=== PATIENT | female | born 1960 | race Caucasian/White ===

== ENCOUNTER → 2017-11-22 16:33 | Outpatient (CLI) | payer OTHER, SELFPAY ==
[2017-11-22 18:07] LABS: Carcinoembryonic Antigen 0.4 ng/mL (0.1-3.0)
[2017-11-24 15:55] LABS: CA 15-3 14 U/mL (< 32)
[2017-11-24 15:57] LABS: Cancer Antigen 27.29 21 U/mL (< 38)
== END ==
PROVIDERS: Family Provider Surgery; PCP Family Medicine; Visit Provider Surgery
DX: Z85.3 Personal history of malignant neoplasm of breast (principal)
CPT/HCPCS: 36415; 82378; 86300

== ENCOUNTER → 2018-01-08 10:00 | Outpatient (CLI) | payer OTHER, SELFPAY ==
--- NOTE | 2018-01-08 10:01 | DI.RAD.S_ITS ---
PROCEDURE: XR LUMBAR SPINE MIN 4V INDICATIONS: back pain TECHNIQUE: 5 views of the lumbar spine were acquired. COMPARISON: [facility], CT, ABDOMEN/PELVIS WITH CONTRAST, 10/14/2015, 7:43. FINDINGS: Bones: L4-L5 posterior spinal fixation. Hardware appears intact. No evidence of hardware loosening. There is also interbody fusion. Mild anterior wedging of L2 which is grossly unchanged. Mild levocurvature centered at the L2-L3 level. Lower lumbar thoracic disc spaces are mildly narrowed and there is endplate sclerosis and spurring. Moderate L5-S1 disc degeneration otherwise the remaining lumbar disc spaces demonstrate minimal if any height loss. Diffuse facet arthropathy. Soft tissues: Overlying bowel gas pattern is normal. No suspicious soft tissue calcifications. Oblique images: No pars defects. IMPRESSION: Postsurgical changes as above at L4-L5. Moderate L5-S1 disc degeneration. Diffuse facet arthropathy Lower thoracic discogenic changes Dictated by: Amauri Cortes M.D. on 01/08/2018 at 10:30 Approved by: Amauri Cortes M.D. on 01/08/2018 at 10:33
== END ==
PROVIDERS: PCP Family Medicine; Visit Provider Registered Nurse
DX: M54.9 Dorsalgia, unspecified (principal); M51.37 Other intervertebral disc degeneration, lumbosacral region; M47.817 Spondylosis without myelopathy or radiculopathy, lumbosacral region; Z98.1 Arthrodesis status
CPT/HCPCS: 72110

== ENCOUNTER → 2018-01-30 15:46 | Outpatient (CLI) | payer OTHER, SELFPAY | PROVIDERS: PCP Family Medicine | DX: Z23 Encounter for immunization (principal) | CPT/HCPCS: 90471; 90686 ==

== ENCOUNTER 2018-02-01 13:00 | Outpatient (RCR) | payer OTHER, SELFPAY ==
--- NOTE | 2018-01-24 17:30 | PT.OPPOC ---
Current Diagnoses Low back pain (01/24/18) Provider Visit Care Team Role Provider Type Maeve Beebe DO Primary Care Provider Physician Specialty: Family Practice Address: [address] [place] [address], [id number] Email: [email or web address] Cooper Attending Provider Advanced Yard Foreman Specialty: Medical Address: [address] [place] [address], [id number] Email: Plan Of Care PT-OP-T Assessment and Plan Start: 01/24/18 15:25 Freq: Status: Active Protocol: Document 01/24/18 16:51 EA (Rec: 01/24/18 17:29 EA [id number]) Physical Therapy Assessment Rehab Potential Rehabilitation Potential Good Evaluation Complexity Number of Personal Factors/Comorbidities 1-2 Number of Body Systems Impaired 3 Clinical Presentation at Evaluation Evolving Impairments Impairments Activity Tolerance Pain Posture ROM Soft Tissue Mobility Strength Other Concerns Barriers to Rehabilitation Current BW (Overweight/Obese) Goals Four Impairment Impaired muscle strength Senior Javascript Engineer Goal (LTG) Patient will improve core strength to enable patient hold near normal pelvic tilt and prevent low back pain. LTG Duration 4 wks Three Impairment No current home exercises program Half-Way Goal (LTG) Patient will learn and comply with HEP LTG Duration 4 wks Two Impairment Impaired sitting and sleeping tolerance Half-Way Goal (LTG) Patient will sleep more than 6 hours with no discomfort or low back pain Patient sit more than 45 mins with no increase in symptoms LTG Duration 4 wks One Impairment Oswestry impairment scale score of 19/45 Half-Way Goal (LTG) Patient will have Oswestry impairment scale of 10/45 LTG Duration 4 wks Assessment Summary Assessment Pleasant 57 y/o F patient referred d/t localized low back pain presented today with limitation to spinal motion and activity tolerance. Special tests reveals positive with SI joint dysfunction, soft tissue tightness to both paralumbars, and both ITB. Tests reveals negative with neurological involvement. Based on patient history, assessments and tests that patient complaints correlates with muscular strains, with L SI joint dysfunction, in addition of facets arthropathy . Due to above mentioned bodily dysfunction, patient is limited to functional tasks that is supposed to be pain free at her age. Patient is a good candidate to skilled PT to address the aforementioned issues. Physical Therapy Plan Frequency and Duration Frequency of Treatment 2x/Week Duration of Treatment 8 wks Plan of Care Start Date 01/24/18 Plan of Care End Date 03/21/18 Therapeutic Interventions Therapeutic Interventions Home Exercise Program Joint Mobilizations Manual Therapy Patient/Caregiver Education Self-Care/Home Management Soft Tissue Mobilization Taping Therapeutic Exercises Modalities Cold Pack/Ice Massage Electric Stimulation Hot Packs Ultrasound Next Visit Focus/Plan Next Note Type Treatment Note Plan of Care Dates Plan of Care Start Date 01/24/18 Plan of Care End Date 03/21/18 Please Sign and Return: I have reviewed this Plan of Care and certify that the skilled therapy services above are required to meet the patient?s needs. Physician Signature Date Printed Name and Credentials Clinical Instructor Signature Printed Name and Credentials
--- NOTE | 2018-01-24 17:30 | PT.OIE ---
Current Diagnoses Low back pain (01/24/18) Past Medical History (Last Updated 01/07/18 @ 11:31 by Laxmi Hale) BRCA gene mutation positive in female (Chronic 2009) Chronic headaches (Chronic) Colitis (Chronic 2009) Depression (Chronic) GERD (gastroesophageal reflux disease) (Chronic) Gastric ulcer (Chronic 2008) Hayfever (Chronic) Migraines (Chronic) Recurrent sinusitis (Chronic) Breast cancer (Resolved 2009) Chicken pox (Resolved ~1965) Past Surgical History (Last Updated 01/07/18 @ 11:34 by Laxmi Hale) Anesthesia (Resolved) History of back surgery (Resolved 07/2009) History of total mastectomy (Resolved 12/2010) History of total mastectomy (Resolved 07/2011) Status post cholecystectomy (Resolved 2015) Status post hysterectomy (Resolved 12/2002) Status post tubal ligation (Resolved 1980) Provider Visit Care Team Role Provider Type Maeve Beebe DO Primary Care Provider Physician Specialty: Family Practice Address: [address] [place] [address] Email: [email or web address] Cooper Attending Provider Advanced Geosciences Faculty Member Specialty: Medical Address: [address] [place] [address], [id number] Email: Physical Therapy Initial Evaluation PT-OP-A Visit Information Start: 01/24/18 15:25 Freq: Status: Active Protocol: Document 01/24/18 16:51 EA (Rec: 01/24/18 17:29 EA [id number]) Out-Patient Physical Therapy Visit Information Visit Information Visit Type Initial Evaluation Visit Start Time 13:00 Visit Stop Time 13:40 Total Visit Minutes 40 Visit Number 1 Evaluation Information Evaluation Date 01/24/18 PT-OP-B Current Condition Start: 01/24/18 15:25 Freq: Status: Active Protocol: Document 01/24/18 16:51 EA (Rec: 01/24/18 17:29 EA [id number]) Current Condition History of Current Condition Onset Date 1 month ago Current Complaints Localized low back aching pain History of Current Condition Pt reports current low back pain complaint started a month ago after injuring her back while lifting her mom from the floor to the wheelchair; states felt pain with soreness to low back area afterwards. Pt reports low back pain increased in morning and slowly decreased once mobile for few hours. Recent X-rays reveals L5-S1 DDD with diffused lumbar arthropathy. Pt had history of lumbar fusion years ago with no issues until recent incident at home. Prior Treatments and Tests none identified Future Testing and Treatments Planned None identified Treatment Goals Patient/Caregiver Goals Pt wants to reduce pain to at least 1/10 at rest and with mobility. 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 [employer] Current Functional Impairments (Reported) Functional Limitations- ADL's Patient is mildly limited with bending and lifting Functional Limitations- Mobility/Gait Limited with distance mobility due to increased in low back pain Functional Limitations- Work/School Sitting at work is mildly limited Functional Limitations- Other Limited sleep due to pain PT-OP-C Subjective Start: 01/24/18 15:25 Freq: Status: Active Protocol: Document 01/24/18 16:50 EA (Rec: 01/29/18 09:31 EA [id number]) OP-PT Subjective Patient Comments Patient Comments Patient is aiming to decrease pain while sleeping after few sessions with physical therapy . Patient Reported Progress Same Patient Questionnaires Oswestry Low Back Index Oswestry Score 19/45 Oswestry Impairment 40 to 59% Impaired (Score 40- 59) PT-OP-F Manual Assessment Start: 01/24/18 15:25 Freq: Status: Active Protocol: Document 01/24/18 16:50 EA (Rec: 01/29/18 09:31 EA [id number]) Manual Assessments Soft Tissue Assessment Soft Tissue Mobility Assessment Tight paralumbars, both ITB, QL. Joint Mobility Assessment Joint Mobility Assessment Not assess due to lumbar fixation PT-OP-G Mobility & Gait Start: 01/24/18 15:25 Freq: Status: Active Protocol: Document 01/24/18 16:50 EA (Rec: 01/29/18 09:31 EA [id number]) OP Gait Assessment Comments Gait Comments Normal gait pattern. Patient able to walk on toes and heels with pain increased to low back area with heel walking Stair Climbing Evaluation Evaluation Level of Assist On Stairs Independent Devices Stair Climbing Assistive Devices None Technique/Endurance Stair Climbing Direction Ascend and Descend Comments Stair Climbing Comments No limitation noted PT-OP-J Posture/Palpation/Skin Start: 01/24/18 15:25 Freq: Status: Active Protocol: Document 01/24/18 16:51 EA (Rec: 01/24/18 17:29 EA [id number]) Posture Evaluation Position Standing Evaluation View ant/post L-Spine Posture Increased Lordosis Pelvis Posture Anteriorly Tilted Comments Posture Comments Increased lumbar lordosis with slight ant pelvic tilt Palpation Assessment Location One Palpation Location SI joint, paralumbars, Ql, both ITB Palpation Findings Soft Tissue Tightness Tenderness PT-OP-K Range of Motion Start: 01/24/18 15:25 Freq: Status: Active Protocol: Document 01/24/18 16:51 EA (Rec: 01/24/18 17:29 EA [id number]) Lumbar Spine Range of Motion Lumbar Spine Active Percentage Testing Position standing Flexion 50 Extension 70 Rotation Left 60 Rotation Right 60 Lateral Flexion Left 65 Lateral Flexion Right 50 ROM Limitations Soft Tissue Tightness Pain Comments ROM is limited with soft tissue tightness and pain to SI joint PT-OP-L Special Tests Start: 01/24/18 15:25 Freq: Status: Active Protocol: Document 01/24/18 16:51 EA (Rec: 01/24/18 17:29 EA [id number]) Special Tests Lumbar Spine Special Tests Other- 2 Test Results Negative post quadrant test ( Neural foramina) Stork Test Test Results negative Other- 1 Test Results Left SLS Comments Pain left SI jnt Straight Leg Raise Test Results + Comments R SLR = pain to left SI Compression Test Results Positive Comments Left > right: SL Knee Special Tests Katy's Test Test Results Tight both ITB PT-OP-M Strength Start: 01/24/18 15:25 Freq: Status: Active Protocol: Document 01/24/18 16:51 EA (Rec: 01/24/18 17:29 EA [id number]) Trunk Strength Trunk Manual Muscle Testing Testing Position sup/prone Flexion 3- Fair- Extension 3- Fair- Rotation Left 3 Fair Rotation Right 3 Fair Lateral Flexion Left 3- Fair- Lateral Flexion Right 3- Fair- Hip Strength Hip Manual Muscle Testing Right Reason Not Measured WFL Left Reason Not Measured WFL Ankle/Foot Strength Ankle and Foot Manual Muscle Testing Right Reason Not Measured WFL Left Reason Not Measured WFL PT-OP-Q Treatments Start: 01/24/18 15:25 Freq: Status: Active Protocol: Document 01/24/18 16:51 EA (Rec: 01/24/18 17:29 EA [id number]) Self-Care/Home Management Treatment Education Patient Education Home Exercise Program Pain Management Posture PT-OP-T Assessment and Plan Start: 01/24/18 15:25 Freq: Status: Active Protocol: Document 01/24/18 16:51 EA (Rec: 01/24/18 17:29 EA [id number]) Physical Therapy Assessment Rehab Potential Rehabilitation Potential Good Evaluation Complexity Number of Personal Factors/Comorbidities 1-2 Number of Body Systems Impaired 3 Clinical Presentation at Evaluation Evolving Impairments Impairments Activity Tolerance Pain Posture ROM Soft Tissue Mobility Strength Other Concerns Barriers to Rehabilitation Current BW (Overweight/Obese) Goals Four Impairment Impaired muscle strength Intermediate Goal (LTG) Patient will improve core strength to enable patient hold near normal pelvic tilt and prevent low back pain. LTG Duration 4 wks Three Impairment No current home exercises program Intermediate Goal (LTG) Patient will learn and comply with HEP LTG Duration 4 wks Two Impairment Impaired sitting and sleeping tolerance Intermediate Goal (LTG) Patient will sleep more than 6 hours with no discomfort or low back pain Patient sit more than 45 mins with no increase in symptoms LTG Duration 4 wks One Impairment Oswestry impairment scale score of 19/45 Coffin Maker Goal (LTG) Patient will have Oswety impairment scale of 10/45 LTG Duration 4 wks Assessment Summary Assessment Pleasant 57 y/o F patient referred d/t localized low back pain presented today with limitation to spinal motion and activity tolerance. Special tests reveals positive with SI joint dysfunction, soft tissue tightness to both paralumbars, and both ITB. Tests reveals negative with neurological involvement. Based on patient history, assessments and tests that patient complaints correlates with muscular strains, with L SI joint dysfunction, in addition of facets arthropathy . Due to above mentioned bodily dysfunction, patient is limited to functional tasks that is supposed to be pain free at her age. Patient is a good candidate to skilled PT to address the aforementioned issues. Physical Therapy Plan Frequency and Duration Frequency of Treatment 2x/Week Duration of Treatment 8 wks Plan of Care Start Date 01/24/18 Plan of Care End Date 03/21/18 Therapeutic Interventions Therapeutic Interventions Home Exercise Program Joint Mobilizations Manual Therapy Patient/Caregiver Education Self-Care/Home Management Soft Tissue Mobilization Taping Therapeutic Exercises Modalities Cold Pack/Ice Massage Electric Stimulation Hot Packs Ultrasound Next Visit Focus/Plan Next Note Type Treatment Note
--- NOTE | 2018-01-29 15:36 | PT.OTN ---
Current Diagnoses Low back pain (01/29/18) Physical Therapy Treatment Note PT-OP-A Visit Information Start: 01/24/18 15:25 Freq: Status: Active Protocol: Document 01/24/18 16:51 EA (Rec: 01/24/18 17:29 EA [id number]) Out-Patient Physical Therapy Visit Information Visit Information Visit Type Initial Evaluation Visit Start Time 13:00 Visit Stop Time 13:40 Total Visit Minutes 40 Visit Number 1 Evaluation Information Evaluation Date 01/24/18 PT-OP-B Current Condition Start: 01/24/18 15:25 Freq: Status: Active Protocol: Document 01/24/18 16:51 EA (Rec: 01/24/18 17:29 EA [id number]) Current Condition History of Current Condition Onset Date 1 month ago Current Complaints Localized low back aching pain History of Current Condition Pt reports current low back pain complaint started a month ago after injuring her back while lifting her mom from the floor to the wheelchair; states felt pain with soreness to low back area afterwards. Pt reports low back pain increased in morning and slowly decreased once mobile for few hours. Recent X-rays reveals L5-S1 DDD with diffused lumbar arthropathy. Pt had history of lubar fusion years ago with no issues until recent incedent at home. Prior Treatments and Tests none identified Future Testing and Treatments Planned None identified Treatment Goals Patient/Caregiver Goals Pt wants to reduce pain to at least 1/10 at rest and with mobility. 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 [employer] Current Functional Impairments (Reported) Functional Limitations- ADL's Patient is mildy limited with bending and lifting Functional Limitations- Mobility/Gait Limited with distance mobility due to increased in low back pain Functional Limitations- Work/School Sitting at work is mildly limited Functional Limitations- Other Limited sleep due to pain PT-OP-C Subjective Start: 01/24/18 15:25 Freq: Status: Active Protocol: Document 01/29/18 15:20 SA (Rec: 01/29/18 15:35 SA [id number]) OP-PT Subjective Patient Comments Patient Comments Pt was quite sore after initial evaluation, has steroid perscribed and was helpful in releaving pain. Patient Reported Progress Same PT-OP-F Manual Assessment Start: 01/24/18 15:25 Freq: Status: Active Protocol: Document 01/24/18 16:50 EA (Rec: 01/29/18 09:31 EA [id number]) Manual Assessments Soft Tissue Assessment Soft Tissue Mobility Assessment Tight paralumbars, both ITB, QL. Joint Mobility Assessment Joint Mobility Assessment Not assess due to lumbar fixation PT-OP-G Mobility & Gait Start: 01/24/18 15:25 Freq: Status: Active Protocol: Document 01/24/18 16:50 EA (Rec: 01/29/18 09:31 EA [id number]) OP Gait Assessment Comments Gait Comments Normal gait pattern. Patient able to walk on toes and heels with pain increased to low back area with heel walking Stair Climbing Evaluation Evaluation Level of Assist On Stairs Independent Devices Stair Climbing Assistive Devices None Technique/Endurance Stair Climbing Direction Ascend and Descend Comments Stair Climbing Comments No limitation noted PT-OP-J Posture/Palpation/Skin Start: 01/24/18 15:25 Freq: Status: Active Protocol: Document 01/24/18 16:51 EA (Rec: 01/24/18 17:29 EA [id number]) Posture Evaluation Position Standing Evaluation View ant/post L-Spine Posture Increased Lordosis Pelvis Posture Anteriorly Tilted Comments Posture Comments Increased lumbar lordosis with slight ant pelvic tilt Palpation Assessment Location One Palpation Location SI joint, paralumbars, Ql, both ITB Palpation Findings Soft Tissue Tightness Tenderness PT-OP-K Range of Motion Start: 01/24/18 15:25 Freq: Status: Active Protocol: Document 01/24/18 16:51 EA (Rec: 01/24/18 17:29 EA [id number]) Lumbar Spine Range of Motion Lumbar Spine Active Percentage Testing Position standing Flexion 50 Extension 70 Rotation Left 60 Rotation Right 60 Lateral Flexion Left 65 Lateral Flexion Right 50 ROM Limitations Soft Tissue Tightness Pain Comments ROM is limited with soft tissue tightness and pain to SI joint PT-OP-L Special Tests Start: 01/24/18 15:25 Freq: Status: Active Protocol: Document 01/24/18 16:51 EA (Rec: 01/24/18 17:29 EA [id number]) Special Tests Lumbar Spine Special Tests Other- 2 Test Results Negative post quadrant test ( Neural foramina) Stork Test Test Results negative Other- 1 Test Results Left SLS Comments Pain left SI jnt Straight Leg Raise Test Results + Comments R SLR = pain to left SI Compression Test Results Positive Comments Left > right: SL Knee Special Tests Katy's Test Test Results Tight both ITB PT-OP-M Strength Start: 01/24/18 15:25 Freq: Status: Active Protocol: Document 01/24/18 16:51 EA (Rec: 01/24/18 17:29 EA [id number]) Trunk Strength Trunk Manual Muscle Testing Testing Position sup/prone Flexion 3- Fair- Extension 3- Fair- Rotation Left 3 Fair Rotation Right 3 Fair Lateral Flexion Left 3- Fair- Lateral Flexion Right 3- Fair- Hip Strength Hip Manual Muscle Testing Right Reason Not Measured WFL Left Reason Not Measured WFL Ankle/Foot Strength Ankle and Foot Manual Muscle Testing Right Reason Not Measured WFL Left Reason Not Measured WFL PT-OP-Q Treatments Start: 01/24/18 15:25 Freq: Status: Active Protocol: Document 01/29/18 15:20 SA (Rec: 01/29/18 15:35 SA [id number]) Therapeutic Exercises Supine Exercises Supine pelvic tilits Reps/Minutes 10x DKTC Reps/Minutes 30 x 3 SKTC Side bilateral Reps/Minutes 30 x 3 Prone Exercises Quadriped Cat/Camel Reps/Minutes 2' Comments focus on posterior pelvic tilt Sitting Exercises Piriformis stretching Side bilateral Reps/Minutes 30 x 2 Standing Exercises HS/Psoas stretching Reps/Minutes 30x 2 Comments at stair Manual Therapy Treatment Soft Tissue Mobilization STM Body Location piriformis Mobilization Type Myofascial Release Trigger Point Release Intensity/Depth Moderate Body Position side lying STM/MFR Body Location lumbar paraspinals Mobilization Type Myofascial Release Rolling Trigger Point Release Intensity/Depth Moderate Body Position Sidelying PT-OP-R Modalities Start: 01/24/18 15:25 Freq: Status: Active Protocol: Document 01/29/18 15:20 SA (Rec: 01/29/18 15:35 SA [id number]) Electric Stimulation Electric Stimulation IFC Body Location central LB/sacral Duration (Minutes) 15 Combined With Heat/Cold Cold Pack Comments Pt in side lying PT-OP-T Assessment and Plan Start: 01/24/18 15:25 Freq: Status: Active Protocol: Document 01/29/18 15:20 SA (Rec: 01/29/18 15:35 SA [email or web address]) Physical Therapy Assessment Assessment Summary Assessment SKTC, DKTC and piriformis stretching to for HEP. Pt to continued with B ITB rolling. Education for work station set up, hand out provided. Physical Therapy Plan Frequency and Duration Frequency of Treatment 2x/Week Next Visit Focus/Plan Next Note Type Treatment Note Next Visit Plan Review HEP next visit, assess tolerance of E-stim and STM. Continue to work on posterior pelvic tilt.
--- NOTE | 2018-01-29 15:52 | PT.OTN ---
Current Diagnoses Low back pain (01/29/18) Physical Therapy Treatment Note PT-OP-A Visit Information Start: 01/24/18 15:25 Freq: Status: Active Protocol: Document 01/29/18 15:51 SA (Rec: 01/29/18 15:52 SA [email or web address]) Out-Patient Physical Therapy Visit Information Visit Information Visit Type Treatment Note Visit Start Time 13:00 Visit Stop Time 13:45 Visit Number 2 PT-OP-B Current Condition Start: 01/24/18 15:25 Freq: Status: Active Protocol: Document 01/24/18 16:51 EA (Rec: 01/24/18 17:29 EA [id number]) Current Condition History of Current Condition Onset Date 1 month ago Current Complaints Localized low back aching pain History of Current Condition Pt reports current low back pain complaint started a month ago after injuring her back while lifting her mom from the floor to the wheelchair; states felt pain with soreness to low back area afterwards. Pt reports low back pain increased in morning and slowly decreased once mobile for few hours. Recent X-rays reveals L5-S1 DDD with diffused lumbar arthropathy. Pt had history of lubar fusion years ago with no issues until recent incedent at home. Prior Treatments and Tests none identified Future Testing and Treatments Planned None identified Treatment Goals Patient/Caregiver Goals Pt wants to reduce pain to at least 1/10 at rest and with mobility. 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 [employer] Current Functional Impairments (Reported) Functional Limitations- ADL's Patient is mildy limited with bending and lifting Functional Limitations- Mobility/Gait Limited with distance mobility due to increased in low back pain Functional Limitations- Work/School Sitting at work is mildly limited Functional Limitations- Other Limited sleep due to pain PT-OP-C Subjective Start: 01/24/18 15:25 Freq: Status: Active Protocol: Document 01/29/18 15:20 SA (Rec: 01/29/18 15:35 SA [email or web address]) OP-PT Subjective Patient Comments Patient Comments Pt was quite sore after initial evaluation, has steroid perscribed and was helpful in releaving pain. Patient Reported Progress Same PT-OP-F Manual Assessment Start: 01/24/18 15:25 Freq: Status: Active Protocol: Document 01/24/18 16:50 EA (Rec: 01/29/18 09:31 EA [id number]) Manual Assessments Soft Tissue Assessment Soft Tissue Mobility Assessment Tight paralumbars, both ITB, QL. Joint Mobility Assessment Joint Mobility Assessment Not assess due to lumbar fixation PT-OP-G Mobility & Gait Start: 01/24/18 15:25 Freq: Status: Active Protocol: Document 01/24/18 16:50 EA (Rec: 01/29/18 09:31 EA [id number]) OP Gait Assessment Comments Gait Comments Normal gait pattern. Patient able to walk on toes and heels with pain increased to low back area with heel walking Stair Climbing Evaluation Evaluation Level of Assist On Stairs Independent Devices Stair Climbing Assistive Devices None Technique/Endurance Stair Climbing Direction Ascend and Descend Comments Stair Climbing Comments No limitation noted PT-OP-J Posture/Palpation/Skin Start: 01/24/18 15:25 Freq: Status: Active Protocol: Document 01/24/18 16:51 EA (Rec: 01/24/18 17:29 EA [id number]) Posture Evaluation Position Standing Evaluation View ant/post L-Spine Posture Increased Lordosis Pelvis Posture Anteriorly Tilted Comments Posture Comments Increased lumbar lordosis with slight ant pelvic tilt Palpation Assessment Location One Palpation Location SI joint, paralumbars, Ql, both ITB Palpation Findings Soft Tissue Tightness Tenderness PT-OP-K Range of Motion Start: 01/24/18 15:25 Freq: Status: Active Protocol: Document 01/24/18 16:51 EA (Rec: 01/24/18 17:29 EA [id number]) Lumbar Spine Range of Motion Lumbar Spine Active Percentage Testing Position standing Flexion 50 Extension 70 Rotation Left 60 Rotation Right 60 Lateral Flexion Left 65 Lateral Flexion Right 50 ROM Limitations Soft Tissue Tightness Pain Comments ROM is limited with soft tissue tightness and pain to SI joint PT-OP-L Special Tests Start: 01/24/18 15:25 Freq: Status: Active Protocol: Document 01/24/18 16:51 EA (Rec: 01/24/18 17:29 EA [id number]) Special Tests Lumbar Spine Special Tests Other- 2 Test Results Negative post quadrant test ( Neural foramina) Stork Test Test Results negative Other- 1 Test Results Left SLS Comments Pain left SI jnt Straight Leg Raise Test Results + Comments R SLR = pain to left SI Compression Test Results Positive Comments Left > right: SL Knee Special Tests Katy's Test Test Results Tight both ITB PT-OP-M Strength Start: 01/24/18 15:25 Freq: Status: Active Protocol: Document 01/24/18 16:51 EA (Rec: 01/24/18 17:29 EA [id number]) Trunk Strength Trunk Manual Muscle Testing Testing Position sup/prone Flexion 3- Fair- Extension 3- Fair- Rotation Left 3 Fair Rotation Right 3 Fair Lateral Flexion Left 3- Fair- Lateral Flexion Right 3- Fair- Hip Strength Hip Manual Muscle Testing Right Reason Not Measured WFL Left Reason Not Measured WFL Ankle/Foot Strength Ankle and Foot Manual Muscle Testing Right Reason Not Measured WFL Left Reason Not Measured WFL PT-OP-Q Treatments Start: 01/24/18 15:25 Freq: Status: Active Protocol: Document 01/29/18 15:20 SA (Rec: 01/29/18 15:35 SA [email or web address]) Therapeutic Exercises Supine Exercises Supine pelvic tilits Reps/Minutes 10x DKTC Reps/Minutes 30 x 3 SKTC Side bilateral Reps/Minutes 30 x 3 Prone Exercises Quadriped Cat/Camel Reps/Minutes 2' Comments focus on posterior pelvic tilt Sitting Exercises Piriformis stretching Side bilateral Reps/Minutes 30 x 2 Standing Exercises HS/Psoas stretching Reps/Minutes 30x 2 Comments at stair Manual Therapy Treatment Soft Tissue Mobilization STM Body Location piriformis Mobilization Type Myofascial Release Trigger Point Release Intensity/Depth Moderate Body Position side lying STM/MFR Body Location lumbar paraspinals Mobilization Type Myofascial Release Rolling Trigger Point Release Intensity/Depth Moderate Body Position Sidelying PT-OP-R Modalities Start: 01/24/18 15:25 Freq: Status: Active Protocol: Document 01/29/18 15:20 SA (Rec: 01/29/18 15:35 SA [email or web address]) Electric Stimulation Electric Stimulation IFC Body Location central LB/sacral Duration (Minutes) 15 Combined With Heat/Cold Cold Pack Comments Pt in sidelying PT-OP-T Assessment and Plan Start: 01/24/18 15:25 Freq: Status: Active Protocol: Document 01/29/18 15:20 SA (Rec: 01/29/18 15:35 SA [email or web address]) Physical Therapy Assessment Assessment Summary Assessment SKTC, DKTC and piriformis stretching to for HEP. Pt to continued with B ITB rolling. Education for work station set up, hand out provided. Physical Therapy Plan Frequency and Duration Frequency of Treatment 2x/Week Next Visit Focus/Plan Next Note Type Treatment Note Next Visit Plan Review HEP next visit, assess tolerance of E-stim and STM. Continue to work on posterior pelvic tilt.
--- NOTE | 2018-02-01 15:35 | PT.OTN ---
Current Diagnoses Low back pain (02/01/18) Physical Therapy Treatment Note PT-OP-A Visit Information Start: 01/24/18 15:25 Freq: Status: Active Protocol: Document 02/01/18 15:25 SA (Rec: 02/01/18 15:35 SA [email or web address]) Out-Patient Physical Therapy Visit Information Visit Information Visit Type Treatment Note Visit Start Time 13:00 Visit Stop Time 13:45 Visit Number 3 Number of MEASUREMENT ANALYST Visits 2 PT-OP-B Current Condition Start: 01/24/18 15:25 Freq: Status: Active Protocol: Document 01/24/18 16:51 EA (Rec: 01/24/18 17:29 EA [id number]) Current Condition History of Current Condition Onset Date 1 month ago Current Complaints Localized low back aching pain History of Current Condition Pt reports current low back pain complaint started a month ago after injuring her back while lifting her mom from the floor to the wheelchair; states felt pain with soreness to low back area afterwards. Pt reports low back pain increased in morning and slowly decreased once mobile for few hours. Recent X-rays reveals L5-S1 DDD with diffused lumbar arthropathy. Pt had history of lubar fusion years ago with no issues until recent incedent at home. Prior Treatments and Tests none identified Future Testing and Treatments Planned None identified Treatment Goals Patient/Caregiver Goals Pt wants to reduce pain to at least 1/10 at rest and with mobility. 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 [employer] Current Functional Impairments (Reported) Functional Limitations- ADL's Patient is mildy limited with bending and lifting Functional Limitations- Mobility/Gait Limited with distance mobility due to increased in low back pain Functional Limitations- Work/School Sitting at work is mildly limited Functional Limitations- Other Limited sleep due to pain PT-OP-C Subjective Start: 01/24/18 15:25 Freq: Status: Active Protocol: Document 02/01/18 15:25 SA (Rec: 02/01/18 15:35 SA [email or web address]) OP-PT Subjective Patient Comments Patient Comments Pt feeling pretty good, continues to use CP and ibuprophen at home for pain management. HEP/stretching going well. PT-OP-F Manual Assessment Start: 01/24/18 15:25 Freq: Status: Active Protocol: Document 01/24/18 16:50 EA (Rec: 01/29/18 09:31 EA [id number]) Manual Assessments Soft Tissue Assessment Soft Tissue Mobility Assessment Tight paralumbars, both ITB, QL. Joint Mobility Assessment Joint Mobility Assessment Not assess due to lumbar fixation PT-OP-G Mobility & Gait Start: 01/24/18 15:25 Freq: Status: Active Protocol: Document 01/24/18 16:50 EA (Rec: 01/29/18 09:31 EA [id number]) OP Gait Assessment Comments Gait Comments Normal gait pattern. Patient able to walk on toes and heels with pain increased to low back area with heel walking Stair Climbing Evaluation Evaluation Level of Assist On Stairs Independent Devices Stair Climbing Assistive Devices None Technique/Endurance Stair Climbing Direction Ascend and Descend Comments Stair Climbing Comments No limitation noted PT-OP-J Posture/Palpation/Skin Start: 01/24/18 15:25 Freq: Status: Active Protocol: Document 01/24/18 16:51 EA (Rec: 01/24/18 17:29 EA [id number]) Posture Evaluation Position Standing Evaluation View ant/post L-Spine Posture Increased Lordosis Pelvis Posture Anteriorly Tilted Comments Posture Comments Increased lumbar lordosis with slight ant pelvic tilt Palpation Assessment Location One Palpation Location SI joint, paralumbars, Ql, both ITB Palpation Findings Soft Tissue Tightness Tenderness PT-OP-K Range of Motion Start: 01/24/18 15:25 Freq: Status: Active Protocol: Document 01/24/18 16:51 EA (Rec: 01/24/18 17:29 EA [id number]) Lumbar Spine Range of Motion Lumbar Spine Active Percentage Testing Position standing Flexion 50 Extension 70 Rotation Left 60 Rotation Right 60 Lateral Flexion Left 65 Lateral Flexion Right 50 ROM Limitations Soft Tissue Tightness Pain Comments ROM is limited with soft tissue tightness and pain to SI joint PT-OP-L Special Tests Start: 01/24/18 15:25 Freq: Status: Active Protocol: Document 01/24/18 16:51 EA (Rec: 01/24/18 17:29 EA [id number]) Special Tests Lumbar Spine Special Tests Other- 2 Test Results Negative post quadrant test ( Neural foramina) Stork Test Test Results negative Other- 1 Test Results Left SLS Comments Pain left SI jnt Straight Leg Raise Test Results + Comments R SLR = pain to left SI Compression Test Results Positive Comments Left > right: SL Knee Special Tests Katy's Test Test Results Tight both ITB PT-OP-M Strength Start: 01/24/18 15:25 Freq: Status: Active Protocol: Document 01/24/18 16:51 EA (Rec: 01/24/18 17:29 EA [id number]) Trunk Strength Trunk Manual Muscle Testing Testing Position sup/prone Flexion 3- Fair- Extension 3- Fair- Rotation Left 3 Fair Rotation Right 3 Fair Lateral Flexion Left 3- Fair- Lateral Flexion Right 3- Fair- Hip Strength Hip Manual Muscle Testing Right Reason Not Measured WFL Left Reason Not Measured WFL Ankle/Foot Strength Ankle and Foot Manual Muscle Testing Right Reason Not Measured WFL Left Reason Not Measured WFL PT-OP-Q Treatments Start: 01/24/18 15:25 Freq: Status: Active Protocol: Document 02/01/18 15:25 SA (Rec: 02/01/18 15:35 SA [email or web address]) Therapeutic Exercises Supine Exercises Supine pelvic tilits Reps/Minutes 12x DKTC Reps/Minutes 30 x 3 SKTC Side bilateral Reps/Minutes 30 x 3 Prone Exercises Quadriped Cat/Camel Reps/Minutes 2 Comments posterior pelvic tile holds Sitting Exercises Piriformis stretching Side bilateral Reps/Minutes 30 x 2 Standing Exercises HS/Psoas stretching Reps/Minutes 30x 2 Comments at stair Manual Therapy Treatment Soft Tissue Mobilization STM Body Location piriformis Mobilization Type Myofascial Release Trigger Point Release Intensity/Depth Moderate Body Position side lying STM/MFR Body Location lumbar paraspinals Mobilization Type Myofascial Release Rolling Trigger Point Release Intensity/Depth Moderate Body Position Sidelying PT-OP-R Modalities Start: 01/24/18 15:25 Freq: Status: Active Protocol: Document 02/01/18 15:25 SA (Rec: 02/01/18 15:35 SA [email or web address]) Electric Stimulation Electric Stimulation IFC Body Location L sacral area Duration (Minutes) 15 Combined With Heat/Cold Cold Pack Comments Pt in sidelying PT-OP-T Assessment and Plan Start: 01/24/18 15:25 Freq: Status: Active Protocol: Document 02/01/18 15:25 SA (Rec: 02/01/18 15:35 SA [email or web address]) Physical Therapy Assessment Progress Towards Goals Progress Towards Goals Progressing Toward Goals Assessment Summary Assessment Added supine pelvic tilts to HEP. Pt tolerating stretching well and was surprised that she did not have more pain recently. Physical Therapy Plan Frequency and Duration Frequency of Treatment 2x/Week Next Visit Focus/Plan Next Note Type Treatment Note Next Visit Plan Progress stretching and spinal mobility, Continue with STM and e-stim as pt is responding well.
--- NOTE | 2018-05-30 09:39 | PT.OPDS ---
Current Diagnoses Low back pain (02/01/18) Provider Visit Care Team Role Provider Type Maeve Beebe DO Primary Care Provider Physician Specialty: Family Practice Address: [address] [place] [address], [id number] Email: [email or web address] Attending Provider Advanced Testing Machine Operator Specialty: Medical Address: [address] [place] [address], [id number] Email: Visit Number Visit Number 3 Discharge Summary PT-OP-B Current Condition Start: 01/24/18 15:25 Freq: Status: Active Protocol: Document 01/24/18 16:51 EA (Rec: 01/24/18 17:29 EA [id number]) Current Condition History of Current Condition Onset Date 1 month ago Current Complaints Localized low back aching pain History of Current Condition Pt reports current low back pain complaint started a month ago after injuring her back while lifting her mom from the floor to the wheelchair; states felt pain with soreness to low back area afterwards. Pt reports low back pain increased in morning and slowly decreased once mobile for few hours. Recent X-rays reveals L5-S1 DDD with diffused lumbar arthropathy. Pt had history of lubar fusion years ago with no issues until recent incedent at home. Prior Treatments and Tests none identified Future Testing and Treatments Planned None identified Treatment Goals Patient/Caregiver Goals Pt wants to reduce pain to at least 1/10 at rest and with mobility. 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 [employer] Current Functional Impairments (Reported) Functional Limitations- ADL's Patient is mildy limited with bending and lifting Functional Limitations- Mobility/Gait Limited with distance mobility due to increased in low back pain Functional Limitations- Work/School Sitting at work is mildly limited Functional Limitations- Other Limited sleep due to pain PT-OP-C Subjective Start: 01/24/18 15:25 Freq: Status: Active Protocol: Document 05/30/18 09:36 EA (Rec: 05/30/18 09:39 EA [id number]) OP-PT Subjective Patient Comments Patient Comments Based on the medical records, patient was last seen more than 90 days ago and no scheduled appointment made by the patient. PT records indicates that patient was improving well even on the last visit. Patient is discharge today due to no longer attending PT. PT-OP-F Manual Assessment Start: 01/24/18 15:25 Freq: Status: Active Protocol: Document 01/24/18 16:50 EA (Rec: 01/29/18 09:31 EA [id number]) Manual Assessments Soft Tissue Assessment Soft Tissue Mobility Assessment Tight paralumbars, both ITB, QL. Joint Mobility Assessment Joint Mobility Assessment Not assess due to lumbar fixation PT-OP-G Mobility & Gait Start: 01/24/18 15:25 Freq: Status: Active Protocol: Document 01/24/18 16:50 EA (Rec: 01/29/18 09:31 EA [id number]) OP Gait Assessment Comments Gait Comments Normal gait pattern. Patient able to walk on toes and heels with pain increased to low back area with heel walking Stair Climbing Evaluation Evaluation Level of Assist On Stairs Independent Devices Stair Climbing Assistive Devices None Technique/Endurance Stair Climbing Direction Ascend and Descend Comments Stair Climbing Comments No limitation noted PT-OP-J Posture/Palpation/Skin Start: 01/24/18 15:25 Freq: Status: Active Protocol: Document 01/24/18 16:51 EA (Rec: 01/24/18 17:29 EA [id number]) Posture Evaluation Position Standing Evaluation View ant/post L-Spine Posture Increased Lordosis Pelvis Posture Anteriorly Tilted Comments Posture Comments Increased lumbar lordosis with slight ant pelvic tilt Palpation Assessment Location One Palpation Location SI joint, paralumbars, Ql, both ITB Palpation Findings Soft Tissue Tightness Tenderness PT-OP-K Range of Motion Start: 01/24/18 15:25 Freq: Status: Active Protocol: Document 01/24/18 16:51 EA (Rec: 01/24/18 17:29 EA [id number]) Lumbar Spine Range of Motion Lumbar Spine Active Percentage Testing Position standing Flexion 50 Extension 70 Rotation Left 60 Rotation Right 60 Lateral Flexion Left 65 Lateral Flexion Right 50 ROM Limitations Soft Tissue Tightness Pain Comments ROM is limited with soft tissue tightness and pain to SI joint PT-OP-L Special Tests Start: 01/24/18 15:25 Freq: Status: Active Protocol: Document 01/24/18 16:51 EA (Rec: 01/24/18 17:29 EA [id number]) Special Tests Lumbar Spine Special Tests Other- 2 Test Results Negative post quadrant test ( Neural foramina) Stork Test Test Results negative Other- 1 Test Results Left SLS Comments Pain left SI jnt Straight Leg Raise Test Results + Comments R SLR = pain to left SI Compression Test Results Positive Comments Left > right: SL Knee Special Tests Katy's Test Test Results Tight both ITB PT-OP-M Strength Start: 01/24/18 15:25 Freq: Status: Active Protocol: Document 01/24/18 16:51 EA (Rec: 01/24/18 17:29 EA [id number]) Trunk Strength Trunk Manual Muscle Testing Testing Position sup/prone Flexion 3- Fair- Extension 3- Fair- Rotation Left 3 Fair Rotation Right 3 Fair Lateral Flexion Left 3- Fair- Lateral Flexion Right 3- Fair- Hip Strength Hip Manual Muscle Testing Right Reason Not Measured WFL Left Reason Not Measured WFL Ankle/Foot Strength Ankle and Foot Manual Muscle Testing Right Reason Not Measured WFL Left Reason Not Measured WFL PT-OP-T Assessment and Plan Start: 01/24/18 15:25 Freq: Status: Active Protocol: Document 05/30/18 09:36 EA (Rec: 05/30/18 09:39 EA [id number]) Physical Therapy Assessment Assessment Summary Assessment Patient is discharge today due to no longer attending PT. Physical Therapy Plan Discharge Physical Therapy Discharge Reasons No Longer Attending PT
== END 2018-06-18 14:42 ==
LOC: PHYS 13:00
PROVIDERS: PCP Family Medicine; Visit Provider Registered Nurse
DX: M54.5 Low back pain (principal)
CPT/HCPCS: 97014; 97110; 97140; 97162; 97535; G0283

== ENCOUNTER 2018-02-14 07:47 | Day surgery (SDC) | payer OTHER, SELFPAY ==
--- NOTE | 2018-02-14 | PATH_ITS ---
[facility] Accession Number: [id number] . 01 Material submitted: . PART A: ANTRAL BIOPSY PART B: DUODENAL BIOPSY PART C: GE JUNCTION BIOPSY . 02 Diagnosis: A. Biopsies, Gastric Antrum: Fragments of normal appearing antral mucosa. Negative for significant inflammation, dysplasia and malignancy. Negative for evidence of Helicobacter on H/E stain. Negative for intestinal metaplasia. . B. Duodenal Biopsies: Fragment of normal appearing duodenal mucosa. Normal delicate mucosal villi present. Negative for significant inflammation, dysplasia and malignancy. . C. GE Junction Biopsy: Fragments of gastric fundic-type mucosa with mild chronic inflammation and no squamous epithelium identified. Negative for evidence of Helicobacter on H/E stain. Negative for intestinal metaplasia. Negative for dysplasia and malignancy. [facility]/02/15/2018 . 02 Electronically signed: . Arden Tomas MD, Pathologist NPI- [id number] . 01 Gross description: . Received three formalin-filled containers, each labeled with the patient's name: . A. In a container labeled antral, the specimen consists of a 0.2 cm portion of tissue, entirely submitted in cassette A. B. In a container labeled duodenal, the specimen consists of a 0.2 cm portion of tissue, entirely submitted in cassette B. C. In a container labeled GE junction, are two 0.2-0.3 cm portions of tissue, entirely submitted in cassette C. ([id number]) /FRR . 02 Pathologist provided ICD-10: R10.13 . 02 CPT . 169110, 119765, 945016 Specimen Comment: A duplicate report has been generated due to demographic updates. Performed at: [address] [place] [address], [place], [place] [id number] MD Osmar Reddy MD Phone: [phone] Performed at: [address] [id number] MD Kathrine Christensen MD Phone: [phone]
[2018-02-14 08:59] VITALS: BMI 36.6
[2018-02-14 09:14] VITALS: BP 109/76; PULSE 78; RESP 16; TEMP 37.4; O2SAT 95
[2018-02-14] MEDS: SODIUM CHLORIDE 0.9% 1,000 ML 21 ML IV (09:20)
[2018-02-14] MEDS: TETRACAINE/BENZOCAINE/BUTAMBEN (CETACAINE) BOTTLE 1 SPRAY TOP (09:37)
[2018-02-14] MEDS: LIDOCAINE 4% SOLN 50 ML 20 ML TOP (09:38)
[2018-02-14] MEDS: MIDAZOLAM 5 MG/5 ML VIAL IV (10:15)
[2018-02-14] MEDS: fentaNYL 250 MCG/5 ML INJ IV (10:16)
--- NOTE | 2018-02-14 10:22 | PM.HP.1 ---
History of Present Illness Date Patient Seen: 02/14/18 Time Patient Seen: 09:22 Chief complaint: [id number] EGD/COLONOSCOPY Narrative: Pablo is a wonderful 57-year-old lady who presents today for EGD and colonoscopy. Over the past 3 weeks or so, Mrs. Huitron had severe reflux symptoms. She has awakened from a deep sleep with acid taste in her mouth. She also reports that she has awakened herself choking on gastric secretions in her mouth. She elevated the head of her bed to improve the symptoms and it has worked to some degree. She has not seen any blood. She denies any actual vomiting. Additionally, she is due for screening colonoscopy. She denies any new problems or symptoms related to the function of her GI tract. She reports that she needs colonoscopy as part of the Health maintenance program. Patient History Medical History BRCA gene mutation positive in female (Chronic 2009) Chronic headaches (Chronic) Colitis (Chronic 2009) Depression (Chronic) GERD (gastroesophageal reflux disease) (Chronic) Gastric ulcer (Chronic 2008) Hayfever (Chronic) Migraines (Chronic) Recurrent sinusitis (Chronic) Breast cancer (Resolved 2009) Chicken pox (Resolved ~1965) Surgical History Anesthesia (Resolved) History of back surgery (Resolved 07/2009) History of total mastectomy (Resolved 12/2010) History of total mastectomy (Resolved 07/2011) Status post cholecystectomy (Resolved 2015) Status post hysterectomy (Resolved 12/2002) Status post tubal ligation (Resolved 1980) Family & Social History Family History: Reviewed 02/14/18 by Karen Chavis MD Social History: household members spouse Tobacco & Substance use: Smoking Status Former smoker Meds Home Medications Medication Instructions Recorded Confirmed Type albuterol sulfate [Ventolin HFA] 2 puff INH Q6HP PRN #1 ea 08/19/16 02/14/18 Rx fluticasone 50 mcg/actuation nasal 1 spray NASAL DAILY #16 gram 10/24/17 02/14/18 Rx spray,suspension citalopram 40 mg tablet 40 mg PO DAILY #30 tab 01/08/18 02/14/18 Rx cyclobenzaprine 10 mg tablet 10 mg PO BEDTIME PRN #20 tab 01/08/18 02/14/18 Rx furosemide 20 mg PO QDAY PRN 02/14/18 02/14/18 History omeprazole 40 mg PO BID MDD 2 02/14/18 02/14/18 History potassium chloride [K-Tab] 10 meq PO QDAY PRN 02/14/18 02/14/18 History Allergies Allergy/AdvReac Type Severity Reaction Status Date / Time Sulfa (Sulfonamide Allergy Unknown unknown Verified 02/14/18 08:56 Antibiotics) childhood [SULFA (SULFONAMIDE rxn ANTIBIOTICS)] chlorthalidone AdvReac Mild bloating,, Verified 02/14/18 08:56 [CHLORTHALIDONE] urinary symptoms Review of Systems Review of Systems All systems reviewed & are unremarkable except as noted in HPI and below Exam Vital Signs (past 8 hours): - 02/14/18 09:14 Temperature 99.4 F Pulse Rate 78 Respiratory Rate 16 Blood Pressure 109/76 Pulse Oximetry 95 Oxygen Delivery Method Room Air Narrative Exam Narrative: Riya lady in no obvious distress HEENT: Normocephalic and atraumatic, pupils equal round reactive to light accommodation with anicteric sclera Lungs: Clear bilaterally Heart: Regular rate and rhythm Abdomen: Soft, nontender, active bowel sounds Extremities: Warm well perfused Assessment & Plan Plan: Assessment/Plan Narrative: Wonderful 57-year-old lady with a personal history of gastric ulcer who has had a significant exacerbation of her symptoms in the last month or so. Additionally, she is due for screening colonoscopy. We discussed the risks and benefits of both procedures and the patient expressed a desire to complete them today.
[2018-02-14 10:24] VITALS: BP 103/69; PULSE 99; RESP 14
[2018-02-14 10:28] VITALS: BP 105/70; PULSE 90; RESP 14
--- NOTE | 2018-02-14 10:28 | PM.OP.1 ---
Operative Date/Time/Diagnoses Date of procedure: 02/14/18 Time of procedure: 10:28 Pre-op diagnosis: Gastroesophageal reflux disease Screening for colon neoplasm Procedure & Clinicians Procedure: Esophagogastroduodenoscopy with biopsies and colonoscopy to the cecum Same procedure as scheduled: Yes Indications: Last colonoscopy approximately 7 years ago Surgeon: Karen Chavis Click Yes if Unassisted: Yes Anesthesia Type: Sedation (Versed 9 mg; fentanyl 200 mcg) Operative Notes Findings: 1. Normal-appearing duodenum and brush border 2. Mild to moderate linear gastritis noted in the antrum. Functioning pylorus. No ulcerations present 3. Small 1 cm sliding hiatal hernia. Very regular appearing Z-line without obvious evidence of Dodd's changes 4. Normal posterior oropharynx 5. Excellent prep 6. No polyps or mass lesions 7. No AV malformations 8. Minimal diverticulosis limited to the sigmoid region. Just a few scattered pockets 9. Grade 1-2 internal hemorrhoids. Closure Type: not applicable Specimen(s): other (Cold forceps biopsies of duodenum, antrum, GE junction) Estimated Blood Loss (mL): 1 Procedure in detail: After obtaining informed consent, the patient was brought to the GI suite and placed in the left lateral decubitus position on the examination table. After placement of appropriate monitors, the patient was given incremental doses of Versed and Fentanyl until an appropriate level of sedation was achieved. A time out was held per SCOAP protocol. We began with EGD. A bite block was gently placed between the patient's teeth. The endoscope was lubricated and then passed into the patient's posterior oropharynx. The esophagus was cannulated under direct vision and the scope was passed to the second portion of the duodenum without difficulty. The scope was then withdrawn with careful examination of all areas of the upper GI tract and mucosa. In the stomach, the instrument was retroflexed and the GE junction examined. The scope was straightened and the procedure continued with examination of the remainder of the upper GI tract. Findings are noted above. Air was aspirated from the stomach and the endoscope gently removed from the esophagus. The examination table was turned and we continued with the colonoscopy. A digital rectal examination was performed and did not reveal any masses or obstructing lesions. The colonoscope was gently passed into the patient's anus and the entire colon navigated to the level of the cecum with minimal difficulty. Once in the cecum, the scope was withdrawn being sure to go before and beyond all mucosal folds and prominences and get an excellent examination. The findings are noted above. At the level of the rectal vault, the scope was retroflexed and the internal anal canal was examined. The scope was straightened and air aspirated from the colon. The instrument was removed from the patient's body and the procedure was concluded. The patient was allowed to awaken from sedation without difficulty and taken to the post-anesthesia care unit in good condition. Total sedation time was 35 min Total colonoscopy withdrawal time was 11 min 14 sec Complications: none Condition: stable Disposition: PACU Plan for aftercare: 1. Discharge to home 2. Plan for next colonoscopy in 10 years or as clinically indicated 3. We will contact you with pathology results and any f additional recommendations
--- NOTE | 2018-02-14 10:35 | SUR.PHASEI ---
pt very sleepy, shows signs of NURYS, informed pt and will place on d/c instructions to have it evaluated.
[2018-02-14 10:42] VITALS: BP 111/73; PULSE 93; RESP 16; O2SAT 97
--- NOTE | 2018-02-14 10:43 | SUR.PHASEI ---
report to manuela hicks.
[2018-02-14 10:45] VITALS: BP 113/61; PULSE 85; RESP 14; TEMP 36.1; O2SAT 95
== END 2018-02-14 11:00 | disposition home or self-care (01) ==
PROVIDERS: PCP Family Medicine; Visit Provider Surgery
PROC: 0DJ08ZZ Inspection of Upper Intestinal Tract, Via Natural or Artificial Opening Endoscopic (ICD-10-PCS; CPT 43235; principal; 2018-02-14 09:45)
PROC: 0DJD8ZZ Inspection of Lower Intestinal Tract, Via Natural or Artificial Opening Endoscopic (ICD-10-PCS; CPT 45378; 2018-02-14 09:45)
DX: Z12.11 Encounter for screening for malignant neoplasm of colon (principal); K21.9 Gastro-esophageal reflux disease without esophagitis; K44.9 Diaphragmatic hernia without obstruction or gangrene; K29.70 Gastritis, unspecified, without bleeding; K57.30 Diverticulosis of large intestine without perforation or abscess without bleeding; K64.1 Second degree hemorrhoids
CPT/HCPCS: 43239; 45378; 99152; 99153; J2250; J3010

== ENCOUNTER → 2018-08-08 12:18 | Outpatient (CLI) | payer OTHER, SELFPAY ==
[2018-08-08 16:27] LABS: Ferritin 37.5 ng/mL (11.1-264)
== END ==
PROVIDERS: PCP Family Medicine; Visit Provider Nurse Practitioner Family
DX: R53.83 Other fatigue (principal)
CPT/HCPCS: 36415; 82728

== ENCOUNTER → 2018-09-18 08:23 | Outpatient (CLI) | payer OTHER, SELFPAY ==
[2018-09-18 10:22] LABS: Add Manual Diff / Slide Review NO; Basophils Absolute Auto 0 /uL (0-100); Eosinophils Absolute Auto 100 /uL (0-450); Lymphocytes Absolute Auto 1600 /uL (1100-4500); Lymphocytes Percent Auto 34.3 % (25-40); Mean Corpuscular HGB Conc 33.2 % (30-36); Mean Corpuscular Volume 93.4 fL (80-100); Monocytes Absolute Auto 400 /uL (0-900); Neutrophils Absolute Auto 2600 /uL (1500-7000); Neutrophils Percent Auto 53.7 % (50-75); Platelet Count 243 X10^3/uL (150-400); White Blood Cell Count 4.8 X10^3/uL (4.5-11.0)
[2018-09-18 10:53] LABS: Alanine Aminotransferase 18 IU/L (9-52); Albumin 3.8 g/dL (3.5-5.0); Albumin Globulin Ratio 1.3 (1.0-2.8); Alkaline Phosphatase 115 U/L (38-126); Aspartate Aminotransferase 21 IU/L (14-36); BUN Creatinine Ratio 14.3 (6-22); Bilirubin Total 0.5 mg/dL (0.2-1.3); Blood Urea Nitrogen 10 mg/dL (7-17); Carbon Dioxide 29 mmol/L (22-32); Chloride 105 mmol/L (98-107); Cholesterol 187 mg/dL (140-199); Estimated Glomerular Filt Rate > 60.0 mL/min (>60); Globulin 2.9 g/dL (1.7-4.1); Glucose 86 mg/dL (70-100); HDL Cholesterol 58 mg/dL (40-60); HEMOLYSIS 16 (0-50); LDL Cholesterol Calculated 113 mg/dL (<100); Potassium 4.5 mmol/L (3.4-5.1); Sodium 139 mmol/L (137-145); Total Protein 6.7 g/dL (6.3-8.2); Triglycerides 82 mg/dL (35-150)
[2018-09-19 10:43] LABS: Carcinoembryonic Antigen 0.4 ng/mL (0.1-3.0)
== END ==
PROVIDERS: PCP Family Medicine; Visit Provider Family Medicine
DX: Z01.419 Encounter for gynecological examination (general) (routine) without abnormal findings (principal); F32.9 Major depressive disorder, single episode, unspecified; E66.9 Obesity, unspecified; Z13.220 Encounter for screening for lipoid disorders; Z85.3 Personal history of malignant neoplasm of breast
CPT/HCPCS: 36415; 80053; 80061; 82378; 85025

== ENCOUNTER → 2018-12-24 07:44 | Outpatient (CLI) | payer OTHER, SELFPAY ==
--- NOTE | 2018-12-24 07:46 | DI.MRI.S_ITS ---
BREAST MRI OF BOTH BREASTS- POST MASTECTOMY: 12/24/2018 CLINICAL: Screening for breast cancer. PROCEDURE: MR BREAST BI WO/W CON INDICATIONS: history of breast cancer TECHNIQUE: The patient was placed prone in a dedicated breast imaging coil. Precontrast axial STIR and 3D FLASH without fat saturation sequences were obtained. Both before and after bolus injection of contrast, sequential 1-minute axial 3D FLASH with fat saturation sequences for 3 time points, with subtraction images and maximum intensity projections (MIP's) generated. Delayed sagittal FLASH images with fat saturation were also obtained. Computer-aided detection, including computer algorithm analysis of MRI image data for lesion detection and characterization, pharmacokinetic analysis, with further physician review for interpretation, was performed. COMPARISON: [facility], MR, BILATERAL BREAST W FINDINGS: Image quality: Excellent. There is minimal background parenchymal enhancement. Right breast: The right breast implant is intact. No suspicious enhancement or suspicious mass lesions. Left breast: The left breast implant is intact. No suspicious enhancement or mass lesions. Miscellaneous: No axillary adenopathy. No intramammary adenopathy. Limited visualization of the lungs, mediastinum, and upper abdomen is unremarkable. IMPRESSION: NEGATIVE 1. Negative breast MRI status post bilateral mastectomy. In an asymptomatic patient status post mastectomy, no further followup is recommended. However, should a new symptom arise, breast ultrasound or MRI may be used to further characterize findings. This exam was interpreted at Station ID: [id number]. Electronically Signed By: Deana Harmon M.D. lk/:12/24/2018 14:06:32 letter sent: Normal Exam ACR BI-RADS Category 1: Negative [id number]
== END ==
PROVIDERS: PCP Family Medicine; Visit Provider Family Medicine
DX: Z08 Encounter for follow-up examination after completed treatment for malignant neoplasm (principal); Z85.3 Personal history of malignant neoplasm of breast; Z90.13 Acquired absence of bilateral breasts and nipples
CPT/HCPCS: 77049; A9579

== ENCOUNTER → 2019-01-30 14:29 | Outpatient (CLI) | payer OTHER, SELFPAY | PROVIDERS: PCP Family Medicine | DX: Z23 Encounter for immunization (principal) | CPT/HCPCS: 90471; 90686 ==

== ENCOUNTER → 2019-10-08 14:41 | Outpatient (CLI) | payer OTHER, SELFPAY ==
[2019-10-09 20:03] LABS: COVID19 Sendout Not Detected (Not Detect)
== END ==
PROVIDERS: PCP Family Medicine; Visit Provider Physician Assistant
DX: Z03.818 Encounter for observation for suspected exposure to other biological agents ruled out (principal)
CPT/HCPCS: 87635

== ENCOUNTER → 2020-01-14 12:40 | Outpatient (CLI) | payer OTHER, SELFPAY ==
--- NOTE | 2020-01-14 12:43 | DI.RAD.S_ITS ---
PROCEDURE: XR ANKLE RT MIN 3V INDICATIONS: pain TECHNIQUE: 3 views of the ankle were acquired. COMPARISON: None. FINDINGS: Bones: No fractures or dislocations. Ankle mortise is normally aligned. No suspicious bony lesions. Soft tissues: No tibiotalar joint effusion. Achilles tendon appears normal. Mild soft tissue swelling surrounding the lateral right ankle. IMPRESSION: Right ankle without acute osseous abnormalities or dislocation. Dictated by: Axel Roman M.D. on 01/14/2020 at 16:55 Approved by: Axel Roman M.D. on 01/14/2020 at 16:56
--- NOTE | 2020-01-14 12:43 | DI.RAD.S_ITS ---
PROCEDURE: XR LUMBAR SPINE 2-3V INDICATIONS: pain, intermittent burning low back bilateral, history of sx TECHNIQUE: 3 views of the lumbar spine were acquired. COMPARISON: [facility], CT, ABDOMEN/PELVIS WITH CONTRAST, 10/14/2015, 7:43. [facility], CR, XR LUMBAR SPINE MIN 4V, 01/08/2018, 9:59. FINDINGS: Bones: 5 [id number]-trtkzzu vertebrae are present. There is stable bony alignment status post posterior spinal fusion of L4 and L5 with paraspinal rods and pedicle screws. There appears to be osseous fusion across L4-5. Degenerative changes at L5-S1 and L3-L4. No evidence for hardware complication. No vertebral body compression fractures. No suspicious bony lesions. Soft tissues: Overlying bowel gas pattern is normal. No suspicious soft tissue calcifications. Surgical clips in right upper quadrant compatible with prior cholecystectomy. IMPRESSION: Lumbar spine without acute fracture or malalignment. Stable postsurgical changes of L4-5 spinal fusion without evidence for hardware complication. Stable alignment. Dictated by: Axel Roman M.D. on 01/14/2020 at 16:56 Approved by: Axel Roman M.D. on 01/14/2020 at 17:00
== END ==
PROVIDERS: PCP Family Medicine; Referring Provider Nurse Practitioner Family; Visit Provider Nurse Practitioner Family
DX: M25.571 Pain in right ankle and joints of right foot (principal); M54.5 Low back pain; Z98.890 Other specified postprocedural states; Z98.1 Arthrodesis status
CPT/HCPCS: 72100; 73610

== ENCOUNTER → 2020-01-30 03:44 | Outpatient (CLI) | payer OTHER, SELFPAY | PROVIDERS: PCP Family Medicine; Referring Provider Internal Medicine; Visit Provider Internal Medicine | DX: Z23 Encounter for immunization (principal) | CPT/HCPCS: 90471; 90686 ==

== ENCOUNTER → 2020-02-24 08:39 | Outpatient (CLI) | payer OTHER, SELFPAY ==
[2020-02-24 09:33] LABS: Add Manual Diff / Slide Review NO; Basophils Absolute Auto 100 /uL (0-100); Basophils Percent Auto 0.9 % (0-2); Eosinophils Absolute Auto 100 /uL (0-450); Hematocrit 41.7 % (36-46); Hemoglobin 14.2 g/dL (12.0-16.0); Lymphocytes Absolute Auto 1700 /uL (1100-4500); Lymphocytes Percent Auto 29.2 % (25-40); Mean Corpuscular HGB Conc 34.1 % (30-36); Mean Corpuscular Hemoglobin 30.1 PG (26-34); Mean Corpuscular Volume 88.1 fL (80-100); Monocytes Absolute Auto 400 /uL (0-900); Neutrophils Absolute Auto 3500 /uL (1500-7000); Neutrophils Percent Auto 60.9 % (50-75); Platelet Count 228 X10^3/uL (150-400); Red Blood Cell Count 4.74 X10^6/uL (4.0-5.2); Red Cell Distribution Width 14.4 % (11.6-14.8); White Blood Cell Count 5.7 X10^3/uL (4.5-11.0)
[2020-02-24 09:50] LABS: Alanine Aminotransferase 18 IU/L (<35); Albumin 4.2 g/dL (3.5-5.0); Albumin Globulin Ratio 1.3 (1.0-2.8); Alkaline Phosphatase 133 U/L (38-126); Aspartate Aminotransferase 25 IU/L (14-36); BUN Creatinine Ratio 18.3 (6-22); Bilirubin Total 0.6 mg/dL (0.2-1.3); Blood Urea Nitrogen 15 mg/dL (7-17); Calcium 9.3 mg/dL (8.4-10.2); Carbon Dioxide 30 mmol/L (22-32); Chloride 106 mmol/L (98-107); Estimated Glomerular Filt Rate > 60.0 mL/min (>60); Globulin 3.3 g/dL (1.7-4.1); Glucose 97 mg/dL (70-100); HEMOLYSIS < 15 (0-50); Potassium 4.2 mmol/L (3.4-5.1); Sodium 140 mmol/L (137-145); Total Protein 7.5 g/dL (6.3-8.2)
[2020-02-24 10:22] LABS: Carcinoembryonic Antigen 0.4 ng/mL (0.1-3.0)
[2020-02-25 00:54] LABS: CA 15-3 18.6 U/mL (0.0-25.0)
[2020-02-25 01:46] LABS: Cancer Antigen 27.29 23.5 U/mL (0.0-38.6)
== END ==
PROVIDERS: PCP Family Medicine; Referring Provider Family Medicine; Visit Provider Family Medicine
DX: Z85.3 Personal history of malignant neoplasm of breast (principal)
CPT/HCPCS: 36415; 80053; 82378; 85025; 86300

== ENCOUNTER → 2020-03-24 09:59 | Outpatient (CLI) | payer OTHER, SELFPAY ==
[2020-03-24 10:46] LABS: COVID19 -Nasal RAPID Negative (Negative)
== END ==
PROVIDERS: PCP Family Medicine; Visit Provider Specialist
DX: Z20.828 Contact with and (suspected) exposure to other viral communicable diseases (principal)
CPT/HCPCS: 87635; C9803

== ENCOUNTER 2020-03-25 08:06 | Day surgery (SDC) | payer OTHER, SELFPAY ==
[2020-03-22 13:48] VITALS: BMI 38.9
[2020-03-25] VITALS (11 sets, daily range): BP systolic 110–142; BP diastolic 71–88; PULSE 85–98; RESP 12–16; TEMP 36.4–36.6; O2SAT 95–98; BMI 38.9
[2020-03-25] MEDS: OXYMETAZOLINE NASAL SPRAY 15 ML 2 SPRAYS NASAL ×2 (08:55→10:17)
[2020-03-25] MEDS: LACTATED RINGERS 1,000 ML 42 ML IV (09:02)
--- NOTE | 2020-03-25 09:39 | PM.PREOP ---
Pre-operative Note COVID-19 COVID-19 status: Negative Result date/Date tested (Pos, Neg/Pending): 03/24/20 Interval Note History & Physical reviewed/Exam performed by Physician: Yes Changes to H&P: No
--- NOTE | 2020-03-25 09:39 | PM.OP.1 ---
Operative Date/Time/Diagnoses Date of procedure: 03/25/20 Time of procedure: 11:29 Pre-op diagnosis: Nasal airway obstruction, septal deviation, inferior and middle turbinate hypertrophy, NURYS Post-op diagnosis: same Procedure & Clinicians Procedure: 1. Septoplasty 2. Bilateral inferior turbinate reduction via intramural cautery Same procedure as scheduled: Yes Indications: 59-year-old female with the above diagnoses incompletely managed with medical therapy presents for the above procedures. Following discussion of the material risks benefits complications and alternatives, she elected to proceed. Surgeon: Jacob Wen Click Yes if Unassisted: Yes Anesthesia Type: General and Local Operative Notes Findings: 1 to 2+ left septal deviation, right 2+ high deviation. Spur LEFT low and posterior. Thin flap mucosa and cartilage, friable, tear right anterior mucosa, left low mid and posterior, no bilateral adjacent perforations. left greater than right inferior and middle turbinate hypertrophy, left middle turbinate reduction via IM cautery as well. Closure Type: primary Specimen(s): none sent Estimated Blood Loss (mL): 100 Blood products transfused: none Procedure in detail: Following identification and confirmation of consent as well as preoperative Afrin nasal spray, the patient was brought to the operating room suite and placed in the supine position. General endotracheal anesthesia was administered. I infiltrated the septum widely bilaterally with 1% lidocaine 1 100,000 epinephrine followed by temporary packing with cotton with Afrin and 4% lidocaine. Following sterile prep and drape, the packing was removed and I performed a right jose transfixion incision, elevated the right mucoperichondrial and mucoperiosteal flap, although unexpectedly difficult due to friable, thin mucosa, with resultant flap tears. I disarticulated near the bony cartilaginous junction and elevated the left mucoperiosteal flap, again difficult, exacerbated by the sharp spur, with additional mucosal tears. Deviated portions of the perpendicular plate of the ethmoid and vomer were resected. The residual quadrilateral cartilage was further straightened by trimming it posteriorly as well as reducing the maxillary crest. A 2 mm strip of cartilage paralleling the residual 1 cm dorsal and caudal strut was resected to further straighten the quadrilateral cartilage. The hemitransfixion incision was closed with interrupted 5 0 chromic followed by a running 4 0 plain gut mattress suture to reapproximate the septal flaps. I also sutured the RIGHT anterior flap perforation. At case completion, 1000th of an inch silastic splints were placed bilaterally, sutured anteriorly with a single 4 0 nylon. The head of each inferior turbinate, as well as the head of the LEFT MIDDLE turbinate, had been previously infiltrated with additional local anesthetic and a 25 gauge spinal needle was used to impale the length of the turbinate, with cautery on a setting of 15 activated on slow withdrawal. The inferior turbinates were then outfractured. The procedure completed, sponge and needle counts were correct and she was extubated in the operating room and taken to recovery room in stable condition without known complication. Postoperative care: Nasal saline every hour while awake, Vaseline to the nostrils at all times, begin irrigations t.i.d. beginning pod 1. Humidifier at the bedside blowing on her face. Tylenol alternating with Advil for pain control, oxycodone if necessary for breakthrough pain. Follow up in 1 week for splint removal. Pt and agree with the plan, understand, and are appreciative. Complications: none Post-operative Condition: stable Disposition: same day surgery Plan for aftercare: Nasal saline every hour while awake, Vaseline or Polysporin to the nostrils at all times, irrigate t.i.d. beginning tomorrow if desired. Tylenol and Advil for baseline pain control, oxycodone if necessary for breakthrough pain. Use CPAP while asleep at all times. Follow-up in 1 week for splint removal.
--- NOTE | 2020-03-25 10:02 | SUR.OPER ---
Supine on padded OR bed, head on gel donut, left arm padded and tucked at side, right arm secured on padded arm board at <90 degree abduction, legs uncrossed, safety belt at thigh, tape over blanket over lower legs .
[2020-03-25] MEDS: BACITRACIN 28 GM OINT 1 APPLIC TOP (10:17)
[2020-03-25] MEDS: LIDOCAINE 1% W/EPI 20 ML INJ (10:19)
[2020-03-25] MEDS: LIDOCAINE 4% SOLN 50 ML 20 ML TOP (10:19)
[2020-03-25] MEDS: SCOPOLAMINE 1 PATCH TOP (10:20)
[2020-03-25] MEDS: OXYCODONE/ACETAMINOPHEN 5/325 TABLET 1 TAB PO (12:22)
== END 2020-03-25 12:55 | disposition home or self-care (01) ==
PROVIDERS: PCP Family Medicine; Referring Provider Otolaryngology; Visit Provider Otolaryngology
PROC: (CPT 30520; principal; 2020-03-25 09:30)
DX: J34.89 Other specified disorders of nose and nasal sinuses (principal); J34.2 Deviated nasal septum; J34.3 Hypertrophy of nasal turbinates; G47.33 Obstructive sleep apnea (adult) (pediatric); K21.9 Gastro-esophageal reflux disease without esophagitis; E66.9 Obesity, unspecified; Z68.38 Body mass index [BMI] 38.0-38.9, adult
CPT/HCPCS: 30520; 30140; A9270; J1100; J2250; J2405; J2704; J3010

== ENCOUNTER → 2020-04-08 09:41 | Outpatient (CLI) | payer OTHER, SELFPAY ==
[2020-04-08] MEDS: COVID-19 VACC(MODERNA-1)/PF 100 MCG/0.5 ML VIAL IM (09:45)
== END ==
PROVIDERS: PCP Family Medicine; Visit Provider Internal Medicine
DX: Z23 Encounter for immunization (principal)
CPT/HCPCS: 0011A; 91301

== ENCOUNTER → 2020-05-05 09:41 | Outpatient (CLI) | payer OTHER, SELFPAY ==
[2020-05-05] MEDS: COVID-19 VACC #2, MRNA(MOD) 100 MCG/0.5 ML VIAL IM (09:44)
== END ==
PROVIDERS: PCP Family Medicine; Visit Provider Internal Medicine
DX: Z23 Encounter for immunization (principal)
CPT/HCPCS: 0012A; 91301

== ENCOUNTER 2020-07-08 11:18 | Emergency (ER) | payer OTHER, SELFPAY ==
[2020-07-08] VITALS (20 sets, daily range): BP systolic 123–162; BP diastolic 58–87; PULSE 82–94; RESP 13–27; TEMP 37.1; O2SAT 96–99; BMI 39.2
--- NOTE | 2020-07-08 11:19 | DI.RAD.S_ITS ---
PROCEDURE: XR CHEST 1V INDICATIONS: chest pain TECHNIQUE: One view of the chest was acquired. COMPARISON: [facility], , CHEST 2 VIEW, 08/23/2016, 14:04. FINDINGS: Surgical changes and devices: None. Lungs and pleura: Lungs are clear. No pleural effusions or pneumothorax. Mediastinum: Mediastinal contours appear normal. Heart size is normal. Bones and chest wall: No suspicious bony lesions. Overlying soft tissues appear unremarkable. IMPRESSION: No acute cardiopulmonary disease process. Dictated by: Starr Barbosa MD, PhD on 07/08/2020 at 12:01 Approved by: Starr Barbosa MD, PhD on 07/08/2020 at 12:01
--- NOTE | 2020-07-08 11:38 | ED.CHESTPAIN ---
HPI - Chest Pain General Chief Complaint: Chest Pain Stated Complaint: chest pain, jaw pain, high bp 11am Time Seen by Provider: 07/08/20 11:30 Source: patient Mode of arrival: Wheelchair Limitations: no limitations History of Present Illness HPI narrative: The patient was at work, when she some experience onset of severe bilateral jaw pain and pain in the mid scapular region for back. She had no chest pain. She developed dyspnea and diaphoresis with the pain. 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 She came over to the ER in a wheelchair, back pain resolved. Shortly after arrival jaw pain has resolved. Pain last about 20 minutes. She has no prior history of similar complaints. She denies history of heart disease. She has no chronic lung disease. She has no history of hypertension, diabetes or hyperlipidemia. She denies recent illness. She has had no headache, fever or sore throat. She feels back to normal at the time of my evaluation. Related Data Home Medications Medication Instructions Recorded Confirmed Respironics Dreamstation CPAP #1 ea 10/24/18 01/14/20 acyclovir 400 mg tablet 400 mg PO TID PRN tab 01/14/20 03/25/20 fluticasone propionate 50 1 spray NASAL DAILY PRN gram 01/14/20 03/25/20 mcg/actuation nasal spray,suspension omeprazole 40 mg capsule,delayed 40 mg PO DAILY cap 01/14/20 03/25/20 release azelastine 2 spray INTRANASAL DAILY 03/25/20 03/25/20 Previous Rx's Medication Instructions Recorded diazepam 5 mg tablet See Rx Instructions .ROUTE 07/14/19 .COMPLEX #10 tablet hydroxyzine HCl 25 mg tablet 50 mg PO BEDTIME #180 tab 05/05/20 montelukast 10 mg tablet 10 mg PO DAILY #90 tab 05/05/20 venlafaxine 225 mg tablet,extended 225 mg PO DAILY #30 tab 06/25/20 release 24 hr Allergies Allergy/AdvReac Type Severity Reaction Status Date / Time Sulfa (Sulfonamide Allergy Unknown unknown Verified 07/08/20 11:25 Antibiotics) childhood [SULFA (SULFONAMIDE rxn ANTIBIOTICS)] chlorthalidone AdvReac Mild bloating,, Verified 07/08/20 11:25 [CHLORTHALIDONE] urinary symptoms Review of Systems Constitutional Constitutional: Denies fatigue, Denies fever(s), Denies headache(s) and Denies weakness Eyes Eyes: Denies change in vision ENT Ears, Nose, Mouth, and Throat: Denies vertigo, Denies dizziness and Denies headache(s) Cardiovascular Cardiovascular: Denies chest pain, Denies rapid heart rate and Denies leg edema Respiratory Comments: No complaints this moment, she had dyspnea when experiencing the pain. Gastrointestinal Gastrointestinal: Denies abdominal pain and Denies nausea Musculoskeletal Comments: Back pain, see HPI. No ongoing pain. No lower extremity edema. Integumentary/Breasts Skin/Breast: Denies erythema and Denies rash Neurologic Neurologic: Denies confusion, Denies vertigo, Denies dizziness, Denies headache(s) and Denies weakness Psychiatric Psychiatric: Denies anxiety and Denies confusion Endocrine Endocrine: Denies fatigue Patient History Medical History BRCA gene mutation positive in female (2009) Breast cancer (2009) Chicken pox (~1966) Chronic headaches Colitis (2009) Depression Gastric ulcer (2008) GERD (gastroesophageal reflux disease) Hayfever Low back pain Migraines Obesity with body mass index (BMI) of 35.0 to 39.9 without comorbidity (05/22/16) Obstructive sleep apnea of adult Recurrent sinusitis Surgical History Anesthesia History of back surgery (07/2009) History of total mastectomy (12/2010) History of total mastectomy (07/2011) Hx of cervical discectomy Status post cholecystectomy (2015) Status post hysterectomy (12/2002) Status post tubal ligation (1980) Family History Child Age: 41 Bipolar 1 disorder Essential hypertension Child Age: 39 Essential hypertension Father Age: 84 Hypertension Dementia Mother Age: 84 Hypertension Grandfather No problems noted. Grandmother No problems noted. Sister Breast cancer Sister No problems noted. Sister No problems noted. Social History marital status: household members: spouse lives independently: Yes occupational status: employed Smoking Status: Never smoker alcohol intake: current substance use type: does not use Smoking Status: Never smoker alcohol intake frequency: holidays/special occasions only Substance Use Type: does not use Exam Initial Vital Signs Initial Vital Signs: Vital Signs Temperature 98.8 F 07/08/20 11:20 Pulse Rate 94 H 07/08/20 11:20 Respiratory Rate 19 07/08/20 11:20 Blood Pressure 162/87 H 07/08/20 11:20 Pulse Oximetry 97 07/08/20 11:20 Const General: cooperative and well developed Nutritional Appearance: well nourished [facility] Head: normocephalic and atraumatic Throat: posterior oropharynx normal Eyes General: appearance normal, both eyes and all related structures Eyelids: eyelids normal Conjunctivae: conjunctivae normal Sclera: sclerae normal Pupils: PERRL EOM: EOM intact bilaterally Neck Neck: No JVD Chest Chest: normal palpation of entire chest wall Resp Effort & Inspection: normal respiratory effort and able to speak in complete sentences Auscultation: clear to auscultation bilaterally, no rales, no rhonchi and no wheezes Cardio Rate: regular rate Rhythm: regular rhythm Heart Sounds: S1 normal, S2 normal, no click, no gallops, no murmurs and no rubs Pulses: normal peripheral pulses GI Inspection: non-distended Palpation: soft, no hepatosplenomegaly and No tender Auscultation: normal bowel sounds Back/Spine/Pelvis Back: No CVA tenderness Skin General: no rashes or lesions noted and No petechiae Neuro General: patient alert, patient oriented x3, gait normal and no focal motor deficits Speech: speech normal Extrem General: full ROM, no pedal edema and no calf tenderness Psych Mental Status: mental status grossly normal Speech and Movement: speech and movement normal Course Course Course Narrative: The patient has been asymptomatic since shortly after arrival. Symptoms are concerning for new onset angina. Initial hypertension has resolved without intervention. Two separate EKGs show no acute changes. Troponin was repeated after 3 hour span and is normal. A CTA of chest was obtained due to elevated D-dimer, the study is benign. I discussed the case with the PCM, Dr. Beebe. The patient can be discharged home, but will have close clinical follow-up. A stress test is anticipated. The patient has been advised to call 911 if symptoms resume. Orders Ordered: ED Orders 07/08/20 11:19 XR chest 1V Stat EKG-12 Lead Stat 07/08/20 11:24 Complete Blood Count AUTO DIFF Stat Comprehensive Metabolic Panel Stat D Dimer Stat Lipase Stat Partial Thromboplastin Time Stat Prothrombin Time INR Stat Troponin & CK Cardiac Panel Stat 07/08/20 12:44 CT angio chest Stat 07/08/20 15:06 EKG-12 Lead Stat 07/08/20 15:20 Troponin & CK Cardiac Panel Stat Sodium Chloride (Normal Saline 0.9%) 1,000 mls @ 250 mls/hr IV CONT GREY Last Admin: 07/08/20 12:36 Dose: 250 mls/hr Documented by: MARLYOTEM Discontinued Medications Aspirin (Aspirin 81 Mg Chew Tab) 324 mg PO NOW ONE Stop: 07/08/20 11:39 Last Admin: 07/08/20 11:42 Dose: 324 mg Documented by: DESMOND Vital Signs Vital signs: Vital Signs - 8 hr 07/08/20 11:20 07/08/20 11:26 07/08/20 11:30 Temperature 98.8 F Pulse Rate 94 H 89 87 Respiratory Rate 19 27 H 23 Blood Pressure 162/87 H Pulse Oximetry 97 98 98 07/08/20 11:37 07/08/20 12:00 07/08/20 12:01 Temperature Pulse Rate 91 H Respiratory Rate 14 Blood Pressure 156/71 H 125/74 Pulse Oximetry 98 MDM - Chest Pain Lab Data Result diagrams: 07/08/20 11:24 07/08/20 11:24 Labs: Lab Results 07/08/20 07/08/20 07/08/20 Range/Units 11:24 11:24 11:24 WBC 7.7 (4.5-11.0) X10^3/uL RBC 4.82 (4.0-5.2) X10^6/uL Hgb 14.8 (12.0-16.0) g/dL Hct 43.3 (36-46) % MCV 89.7 (80-100) fL MCH 30.7 (26-34) PG MCHC 34.2 (30-36) % RDW 14.2 (11.6-14.8) % Plt Count 288 (150-400) X10^3/uL Neut % (Auto) 53.4 (50-75) % Lymph % (Auto) 36.8 (25-40) % [place] % (Auto) 8.3 (3-14) % Eos % (Auto) 0.2 L (2-4) % Baso % (Auto) 1.3 (0-2) % Neut # (Auto) 4100 (9774-9554) /uL Lymph # (Auto) 2800 (8401-7485) /uL [place] # (Auto) 600 (0-900) /uL Eos # (Auto) 0 (0-450) /uL Baso # (Auto) 100 (0-100) /uL PT 12.6 (10.1-12.7) SECONDS INR 1.1 (0.9-1.3) APTT 34 (26.4-36.2) SECONDS D-Dimer (<230) ng/mL Sodium 138 (137-145) mmol/L Potassium 4.1 (3.4-5.1) mmol/L Chloride 104 (98-107) mmol/L Carbon Dioxide 28 (22-32) mmol/L BUN 13 (7-17) mg/dL Creatinine 0.76 (0.52-1.04) mg/dL Estimated GFR > 60.0 (>60) mL/min BUN/Creatinine Ratio 17.1 (6-22) Glucose 92 (70-100) mg/dL Calcium 9.7 (8.4-10.2) mg/dL Total Bilirubin 0.2 (0.2-1.3) mg/dL AST 26 (14-36) IU/L ALT 20 (<35) IU/L Alkaline Phosphatase 158 H (38-126) U/L Total Creatine Kinase 20 L (30-135) U/L CK-MB (CK-2) TNP CK-MB (CK-2) Rel Index TNP Troponin I < 0.012 (0.01-0.034) ng/mL Total Protein 7.8 (6.3-8.2) g/dL Albumin 4.3 (3.5-5.0) g/dL Globulin 3.5 (1.7-4.1) g/dL Albumin/Globulin Ratio 1.2 (1.0-2.8) Lipase 94 (23-300) U/L 07/08/20 07/08/20 Range/Units 11:24 15:20 WBC (4.5-11.0) X10^3/uL RBC (4.0-5.2) X10^6/uL Hgb (12.0-16.0) g/dL Hct (36-46) % MCV (80-100) fL MCH (26-34) PG MCHC (30-36) % RDW (11.6-14.8) % Plt Count (150-400) X10^3/uL Neut % (Auto) (50-75) % Lymph % (Auto) (25-40) % [place] % (Auto) (3-14) % Eos % (Auto) (2-4) % Baso % (Auto) (0-2) % Neut # (Auto) (2482-1572) /uL Lymph # (Auto) (2734-9573) /uL [place] # (Auto) (0-900) /uL Eos # (Auto) (0-450) /uL Baso # (Auto) (0-100) /uL PT (10.1-12.7) SECONDS INR (0.9-1.3) APTT (26.4-36.2) SECONDS D-Dimer 988 H (<230) ng/mL Sodium (137-145) mmol/L Potassium (3.4-5.1) mmol/L Chloride (98-107) mmol/L Carbon Dioxide (22-32) mmol/L BUN (7-17) mg/dL Creatinine (0.52-1.04) mg/dL Estimated GFR (>60) mL/min BUN/Creatinine Ratio (6-22) Glucose (70-100) mg/dL Calcium (8.4-10.2) mg/dL Total Bilirubin (0.2-1.3) mg/dL AST (14-36) IU/L ALT (<35) IU/L Alkaline Phosphatase (38-126) U/L Total Creatine Kinase < 20 L (30-135) U/L CK-MB (CK-2) TNP CK-MB (CK-2) Rel Index TNP Troponin I < 0.012 (0.01-0.034) ng/mL Total Protein (6.3-8.2) g/dL Albumin (3.5-5.0) g/dL Globulin (1.7-4.1) g/dL Albumin/Globulin Ratio (1.0-2.8) Lipase (23-300) U/L Imaging Data Chest x-ray: Radiologist's Impression: Normal CTA chest:: Radiologist's Impression: Normal ECG Data Attestation: I personally reviewed and interpreted this ECG as follows: (Normal sinus rhythm rate 90 beats per minute. Normal intervals. No ectopy. No acute ST T wave changes. EKG #2: No changes noted.) Discharge Plan Departure Patient Disposition: Home Clinical Impression: Atypical chest pain Instructions: Angina Activity Restrictions/Additional Instructions: Your presentation for pain was peculiar, the concern it represents angina. Angina is associated with heart pain. Take baby aspirin 1 daily. I discussed your case with your physician, Dr. Beebe. Quick follow-up will be arranged. Rest at home, no strenuous activity. I suggest you not work until further evaluation on your heart has been completed. If symptoms return, call 911. Return as needed. Prescriptions: No Action diazepam 5 mg tablet See Rx Instructions .ROUTE .COMPLEX Qty: 10 RF: 0 montelukast [Singulair] 10 mg tablet 10 mg PO DAILY Qty: 90 RF: 3 hydroxyzine HCl 25 mg tablet 50 mg PO BEDTIME Qty: 180 RF: 1 venlafaxine 225 mg tablet extended release 24hr 225 mg PO DAILY Qty: 30 RF: 2 acyclovir 400 mg tablet 400 mg PO TID PRN (Reason: Cold sore) RF: 0 fluticasone propionate [Flonase Allergy Relief] 50 mcg/actuation spray,suspension 1 spray NASAL DAILY PRN (Reason: Allergies) RF: 0 omeprazole 40 mg capsule,delayed release(DR/EC) 40 mg PO DAILY RF: 0 azelastine 137 mcg (0.1 %) aerosol,spray 2 spray INTRANASAL DAILY RF: 0 (DME) Respironics Dreamstation CPAP Qty: 1 RF: 0 Referrals: Maeve Beebe DO [Primary Care Provider] -
[2020-07-08] MEDS: ASPIRIN 81 MG CHEW TAB 324 MG PO (11:42)
--- NOTE | 2020-07-08 11:43 | PC.NURSE ---
pt states pain started in her back, coming up through her chest.
[2020-07-08 11:53] LABS: Add Manual Diff / Slide Review NO; Basophils Absolute Auto 100 /uL (0-100); Basophils Percent Auto 1.3 % (0-2); Eosinophils Absolute Auto 0 /uL (0-450); Eosinophils Percent Auto 0.2 % (2-4); Hematocrit 43.3 % (36-46); Hemoglobin 14.8 g/dL (12.0-16.0); Lymphocytes Absolute Auto 2800 /uL (1100-4500); Lymphocytes Percent Auto 36.8 % (25-40); Mean Corpuscular HGB Conc 34.2 % (30-36); Mean Corpuscular Hemoglobin 30.7 PG (26-34); Mean Corpuscular Volume 89.7 fL (80-100); Monocytes Absolute Auto 600 /uL (0-900); Monocytes Percent Auto 8.3 % (3-14); Neutrophils Absolute Auto 4100 /uL (1500-7000); Neutrophils Percent Auto 53.4 % (50-75); Platelet Count 288 X10^3/uL (150-400); Red Blood Cell Count 4.82 X10^6/uL (4.0-5.2); Red Cell Distribution Width 14.2 % (11.6-14.8); White Blood Cell Count 7.7 X10^3/uL (4.5-11.0)
[2020-07-08 11:56] LABS: INR 1.1 (0.9-1.3); Prothrombin Time 12.6 SECONDS (10.1-12.7)
[2020-07-08 11:59] LABS: PTT Partial Thromboplastin Tim 34 SECONDS (26.4-36.2)
[2020-07-08 12:07] LABS: D Dimer 988 ng/mL (<230)
[2020-07-08 12:10] LABS: Alanine Aminotransferase 20 IU/L (<35); Albumin 4.3 g/dL (3.5-5.0); Albumin Globulin Ratio 1.2 (1.0-2.8); Alkaline Phosphatase 158 U/L (38-126); Aspartate Aminotransferase 26 IU/L (14-36); BUN Creatinine Ratio 17.1 (6-22); Bilirubin Total 0.2 mg/dL (0.2-1.3); Blood Urea Nitrogen 13 mg/dL (7-17); Calcium 9.7 mg/dL (8.4-10.2); Carbon Dioxide 28 mmol/L (22-32); Chloride 104 mmol/L (98-107); Creatine Kinase 20 U/L (30-135); Estimated Glomerular Filt Rate > 60.0 mL/min (>60); Globulin 3.5 g/dL (1.7-4.1); Glucose 92 mg/dL (70-100); HEMOLYSIS < 15 (0-50); Lipase 94 U/L (23-300); Potassium 4.1 mmol/L (3.4-5.1); Sodium 138 mmol/L (137-145); Total Protein 7.8 g/dL (6.3-8.2)
[2020-07-08 12:19] LABS: Troponin I < 0.012 ng/mL (0.01-0.034)
[2020-07-08] MEDS: SODIUM CHLORIDE 0.9% 1,000 ML 250 ML IV (12:36)
--- NOTE | 2020-07-08 12:44 | DI.CT.S_ITS ---
PROCEDURE: CT ANGIO CHEST INDICATIONS: chest pain. Elevated D dimer. TECHNIQUE: After the administration of intravenous contrast, 2 mm thick sections acquired from the pulmonary apices to the posterior costophrenic angles. 3-dimensional maximum intensity projection (MIP) coronal and sagittal reformats were then acquired through the thorax. For radiation dose reduction, the following was used: automated exposure control, adjustment of mA and/or kV according to patient size. COMPARISON: None. FINDINGS: Image quality: Suboptimal opacification of the pulmonary arteries. Pulmonary arteries: There is no central or proximal pulmonary artery filling defect. Pulmonary artery opacification is inadequate to exclude small subsegmental or segmental pulmonary emboli. Lungs and pleura: Lungs are clear. No pleural effusions or pneumothorax. Central and peripheral airways are patent. Mediastinum: Heart size is normal, without pericardial effusion. No mediastinal or hilar adenopathy. Thoracic aorta is normal in caliber and enhancement. Esophagus is normal in caliber, without hiatal hernia. Bones and chest wall: No suspicious bony lesions. Ribs and thoracic spine appear intact throughout. Thyroid gland is grossly unremarkable. No axillary or supraclavicular adenopathy. Abdomen: Visualized upper abdominal solid organs appear normal in the early arterial phase of enhancement. IMPRESSION: No proximal or central pulmonary embolism. No acute finding in the chest otherwise. Dictated by: Dong Causey M.D. on 07/08/2020 at 12:57 Approved by: Dong Causey M.D. on 07/08/2020 at 13:01
[2020-07-08 15:46] LABS: Creatine Kinase < 20 U/L (30-135)
[2020-07-08 15:58] LABS: Troponin I < 0.012 ng/mL (0.01-0.034)
--- NOTE | 2020-07-20 09:29 | PC.NURSE ---
late entry for 07/08/20 iv infused, NS 800ml at 1630.
--- NOTE | 2020-07-22 11:22 | PC.NURSE ---
late entry: Iv fluid normal saline stopped at 17:07.
== END 2020-07-08 17:07 | disposition home or self-care (01) ==
PROVIDERS: Emergency Provider Emergency Medicine; PCP Family Medicine
DX: R07.89 Other chest pain (principal); R68.84 Jaw pain
CPT/HCPCS: 36415; 71045; 71275; 80053; 82550; 83690; 84484; 85025; 85379; 85610; 85730; 93005; 96360; 96361; 99284; 99285; Q9967

== ENCOUNTER → 2020-07-19 07:53 | Outpatient (CLI) | payer OTHER, SELFPAY ==
--- NOTE | 2020-07-20 09:13 | P.PCN_ITS ---
Cardiac Stress Test Report Referral & Results Date Patient Seen: 07/20/20 Time Patient Seen: 09:00 Requesting provider: Maeve Beebe Indication: Chest pain Rest ECG: Normal sinus rhythm Procedure Note: Today following both written and verbal informed consent the patient was exercised according to a modified Ulises protocol patient went for a total of 4 minutes achieving a maximum heart rate of 150 for maximum systolic blood pressure of 190. This is approximately 4.6 METs. Exercise was terminated at this point because of fatigue. Patient was also given Cardiolite through a previously started Hep-Lock IV by the supervisor nuclear medicine approximately 1 minute prior to the cessation of exercise. Modified Ulises protocol used (four minutes at stage I) to facilitate tracer injection while walking. Severe exercise limitation (KYUNG +40% on active scale). Normal hemodynamic response to exercise and rest. No signs or symptoms of ang dean. Presenting symptoms were not reproduced on exercise. No EKG changes. Impression: Intermediate probability for ischemia. Perfusion imaging pending. Please note: Actual ECG tracings can be found in the PACS system.
--- NOTE | 2020-07-21 05:05 | DI.NM.S_ITS ---
DATE OF SERVICE: PROCEDURE: Exercise perfusion study. DATE OF STUDY: 07/19/2020 INDICATIONS: Chest pain, obesity, hypertension. RADIOPHARMACEUTICAL: 24.5 millicurie of technetium-99m Myoview IV was injected at stress and 26.9 millicurie technetium-99m Myoview IV was injected at rest. CARDIAC STRESS: The patient underwent exercise perfusion study under the supervision of an attending staff. The patient walked on modified Ulises protocol for 4 minutes and achieved 96 percent of target heart rate. Baseline blood pressure 124/96. Peak blood pressure 190/100. The patient felt significant fatigue and was unable to exercise. Baseline EKG revealed sinus rhythm. During stress, no convincing ischemic changes seen. No significant arrhythmias seen. The patient achieved 4 METS of workload. Functional aerobic impairment positive 40%. RAW DATA: The patient has breast implants. Shadow was seen. GATED STUDY: Stress LV ejection fraction 88% and resting LV ejection fraction 83 percent without any obvious wall motion abnormalities. Resting end-diastolic volume 71 mL. TID ratio 0.69, which is within normal limits. Lung/heart ratio 0.30, which is within normal limits. MYOCARDIAL PERFUSION SCAN: There is a minimally decreased perfusion of distal anterior wall, which is fixed without any reversible ischemia. CONCLUSION: I will call this study likely a normal myocardial perfusion study. There is a minimally decreased perfusion of distal anterior wall. The patient has breast implants. That area is moving well. No obvious wall motion abnormalities. Stress LV ejection fraction 88%. Hence, we are dealing with some tissue attenuation artifact. No convincing ischemia or infarction seen. However, the patient has very diminished exercise tolerance. She walked on modified Ulises protocol for about 4 minutes. Functional aerobic impairment positive 40%. Clinical correlation is recommended. Demetra Huitron AGUEDA/sonny/nabil doc#: [id number]/job#: [id number] dd: 07/20/2020 17:24:00 dt: 07/21/2020 04:56:00 DICTATING /COPIES TO: Vipul Daly MD COPIES MNE: MARLENE;
== END ==
PROVIDERS: PCP Family Medicine; Referring Provider Family Medicine; Visit Provider Family Medicine
DX: R07.89 Other chest pain (principal); E66.9 Obesity, unspecified; I10 Essential (primary) hypertension
CPT/HCPCS: 78452; 93016; 93017; 93018; A9502

== ENCOUNTER → 2020-07-19 09:38 | Outpatient (CLI) | payer OTHER, SELFPAY ==
[2020-07-19 12:03] LABS: COVID19 -Nasal RAPID Negative (Negative)
== END ==
PROVIDERS: PCP Family Medicine; Visit Provider Student in an Organized Health Care Education/Training Program
DX: Z20.822 Contact with and (suspected) exposure to COVID-19 (principal)
CPT/HCPCS: 87635

== ENCOUNTER → 2021-01-06 | Outpatient (CLI) | payer OTHER, SELFPAY | PROVIDERS: PCP Family Medicine; Referring Provider Internal Medicine; Visit Provider Internal Medicine | DX: Z23 Encounter for immunization (principal) | CPT/HCPCS: 90471; 90686 ==

== ENCOUNTER → 2021-02-04 15:33 | Outpatient (CLI) | payer OTHER, SELFPAY ==
[2021-02-04] MEDS: COVID-19 VACC #3, MRNA(MOD) 50 MCG/0.25 ML VIAL IM (15:44)
== END ==
PROVIDERS: PCP Family Medicine; Visit Provider Internal Medicine
DX: Z23 Encounter for immunization (principal)
CPT/HCPCS: 0013A; 91301

== ENCOUNTER → 2021-03-15 15:33 | Outpatient (CLI) | payer OTHER, SELFPAY ==
--- NOTE | 2021-03-15 15:35 | DI.RAD.S_ITS ---
PROCEDURE: XR SACROILIAC JOINT MIN 3V INDICATIONS: bilateral SI joint pain TECHNIQUE: 3 views of the sacroiliac joints were acquired. COMPARISON: None. FINDINGS: Bones: No bony erosions or ankylosis. No suspicious bony lesions. No fractures. There is mild SI joint degeneration. Note is made of lower lumbar spine fusion. Soft tissues: Overlying bowel gas pattern is normal. No suspicious soft tissue densities. 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 No ankylosis or bony erosion. [place] criteria 1. Dictated by: Reji Duarte M.D. on 03/15/2021 at 18:34 Approved by: Reji Duarte M.D. on 03/15/2021 at 18:36
== END ==
PROVIDERS: PCP Family Medicine; Referring Provider Family Medicine; Visit Provider Family Medicine
DX: M53.3 Sacrococcygeal disorders, not elsewhere classified (principal); M46.1 Sacroiliitis, not elsewhere classified
CPT/HCPCS: 72202

== ENCOUNTER → 2021-04-05 13:09 | Outpatient (CLI) | payer OTHER, SELFPAY ==
--- NOTE | 2021-04-05 13:10 | DI.RAD.S_ITS ---
PROCEDURE: XR LUMBAR SPINE MIN 4V INDICATIONS: BACK PAIN TECHNIQUE: 5 views of the lumbar spine acquired, including flexion and extension views. COMPARISON: [facility], CR, XR LUMBAR SPINE MIN 4V, 01/08/2018, 9:59. FINDINGS: Bones: 5 nonrib-bearing vertebrae are present. Trace levo curvature centered at the L4 level. Posterior/interbody fusion again identified at the L4-L5 level which appear unchanged in position. There is normal bony alignment. No vertebral body compression fractures. No suspicious bony lesions. Severe L5-S1 disc height loss. Moderate lower lumbar spine facet joint arthropathy Soft tissues: Overlying bowel gas pattern is normal. No suspicious soft tissue calcifications. IMPRESSION: 1. Postsurgical changes as above at the L4-L5 level. 2. Moderate to severe disc degeneration at the L5-S1 level. 3. Diffuse facet joint arthropathy. Dictated by: Waldo Donaldson [facility] Interpreted: Tiera Lu MD on 04/05/2021 at 14:32 Transcribed by: KAY on 04/05/2021 at 14:35 Approved by: Tiera Lu M.D. on 04/05/2021 at 16:08
== END ==
PROVIDERS: PCP Family Medicine; Referring Provider Physical Medicine & Rehabilitation; Visit Provider Physical Medicine & Rehabilitation
DX: M51.37 Other intervertebral disc degeneration, lumbosacral region (principal); M47.816 Spondylosis without myelopathy or radiculopathy, lumbar region; M54.50 Low back pain, unspecified; Z98.1 Arthrodesis status
CPT/HCPCS: 72110

== ENCOUNTER 2021-07-18 08:15 | Outpatient (RCR) | payer OTHER, SELFPAY ==
--- NOTE | 2021-06-13 16:08 | PT.OIE ---
Current Diagnoses Spondylosis without myelopathy or radiculopathy, lumbar region (06/13/21) Difficulty in walking, not elsewhere classified (06/13/21) Abnormal posture (06/13/21) Weakness (06/13/21) Other specified postprocedural states (06/13/21) Past Medical History (Last Updated 05/16/21 @ 15:51 by Salty Maria DO) BRCA gene mutation positive in female (2009) Breast cancer (2009) Chicken pox (~1966) Chronic headaches Colitis (2009) Depression Facet arthropathy, lumbar Gastric ulcer (2008) GERD (gastroesophageal reflux disease) Hayfever History of back surgery (07/2009) Hx of cervical discectomy Low back pain Migraines Morbid obesity with BMI of 40.0-44.9, adult Obstructive sleep apnea of adult Recurrent sinusitis Past Surgical History (Last Reviewed 03/20/21 @ 13:54 by Maeve Beebe DO) Anesthesia History of back surgery (07/2009) History of total mastectomy (12/2010) History of total mastectomy (07/2011) Hx of cervical discectomy Status post cholecystectomy (2015) Status post hysterectomy (12/2002) Status post tubal ligation (1980) Visit Care Team Role Provider Type Maeve Beebe DO Attending Provider Physician Family Provider Primary Care Provider Referring Provider Specialty: [facility] Address: [address] [place] [address], [facility] Email: [email or web address] Physical Therapy Initial Evaluation PT-OP-A Visit Information Start: 06/13/21 11:21 Freq: Status: Active Protocol: Document 06/13/21 11:23 [facility] (Rec: 06/13/21 12:22 [facility] [id number]) Out-Patient Physical Therapy Visit Information Visit Information Visit Type Initial Evaluation Visit Start Time 11:22 Visit Stop Time 12:00 Total Visit Minutes 38 Visit Number 1 Number of PEPPER PICKER Visits 0 PT-OP-B Current Condition Start: 06/13/21 11:21 Freq: Status: Active Protocol: Document 06/13/21 11:23 [facility] (Rec: 06/13/21 12:22 [facility] [id number]) Current Condition History of Current Condition Onset Date worse over past 6 months Current Complaints LBP & buttocks and R>L ant thigh History of Current Condition Pt reports laminectomy and fusion L4&5 in 2009 with improvement in pain for a long time. She knows she has come for PT for her back but unsure when. Pt reports now if she bends wrong, she screams out in pain. It just gets me. Transitions are very painful right now and she has to be really careful. Pt reports LBP has been getting worse in the last year or 2 and the past 6 months or so the pain has gotten bad enough that she couldn't handle. 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 She went to [facility] from Dec to Mar and now is back with her. It requires more repetive lifting and she has almost fell a few times trying to help her transfer. Pt has to try PT before MRI. Pain at work so she has to always move herself to help w/pain. Pt has moved to close to [place] and wants to be able to walk trails. [place] about 5 years ago, hysterectomy 2002, B mastectomy 2010 & 2011 Pt was told she has moderate carpel tunnel B. Prior Treatments and Tests Started Celebrex-minor help- started seeing Dr. Maria 05/16- next follow up is in August . PT a long time ago-no help- unsure when after the surgery though Treatment Goals Patient/Caregiver Goals Be able to walk trails, be comfortable at work PT-OP-C Subjective Start: 06/13/21 11:21 Freq: Status: Active Protocol: Document 06/13/21 11:23 [facility] (Rec: 06/13/21 12:22 [facility] [id number]) Patient Questionnaires Oswestry Low Back Index Oswestry Score 21/50 Oswestry Impairment 40 to 59% Impaired (Score 40- 59) OP-PT Pain Assessment Location LBP Pain Location Details BLB & into B buttocks Scale Used 4/10 constant; worst 10/10 Frequency Constant Variations/Patterns R thigh occ Pain Aggravating Factors ADL's,Standing,Sitting,Walking ,Stair Climbing,Bending, Lifting Other Pain Aggravating Factors transitions, scooting in chair , stay in 1 position too long Pain Alleviating Factors Cold,Heat Other Pain Alleviating Factors adjust position PT-OP-D Balance Start: 06/13/21 11:21 Freq: Status: Active Protocol: Document 06/13/21 11:23 [facility] (Rec: 06/13/21 12:22 [facility] [id number]) Balance Tests Single Limb Standing Single Limb- Right 6 sec w/lat lean Single Limb- Left 12 sec w/lat lean PT-OP-F Manual Assessment Start: 06/13/21 11:21 Freq: Status: Active Protocol: Document 06/13/21 11:23 [facility] (Rec: 06/13/21 12:22 [facility] [id number]) Manual Assessments Soft Tissue Assessment Soft Tissue Mobility Assessment pain to gentle palpation to ES , QL, glutes, SI, sacrum Joint Mobility Assessment Joint Mobility Assessment equal greater trochanter, L iliac Crest PT-OP-J Posture/Palpation/Skin Start: 06/13/21 11:21 Freq: Status: Active Protocol: Document 06/13/21 11:23 [facility] (Rec: 06/13/21 12:22 [facility] [id number]) Posture Evaluation Dylon Postural Classification System Dylon Postural Classifications Posterior/Anterior Lumbar Protective Mechanism Left AP 1 Lumbar Protective Mechanism Right AP 0 Lumbar Protective Mechanism Left PA 0 Lumbar Protective Mechanism Right PA 0 PT-OP-K Range of Motion Start: 06/13/21 11:21 Freq: Status: Active Protocol: Document 06/13/21 11:23 [facility] (Rec: 06/13/21 12:22 [facility] [id number]) Lumbar Spine Range of Motion Lumbar Spine Active Degrees Flexion 32 Extension 7 Rotation Left 50 Rotation Right 26 Lateral Flexion Left 9 Lateral Flexion Right 8 ROM Limitations Pain PT-OP-L Special Tests Start: 06/13/21 11:21 Freq: Status: Active Protocol: Document 06/13/21 11:23 [facility] (Rec: 06/13/21 12:22 [facility] [id number]) Special Tests Lumbar Spine Special Tests Slump Test Results neg B Straight Leg Raise Test Results 65 R pain LB & HS Comments 72 L HS tightness PT-OP-M Strength Start: 06/13/21 11:21 Freq: Status: Active Protocol: Document 06/13/21 11:23 [facility] (Rec: 06/13/21 12:22 [facility] [id number]) Hip Strength Hip Manual Muscle Testing Right Flexion (L2) 4 Good Extension (S1) 3 Fair Abduction 4- Good- Adduction 3 Fair External Rotation 4 Good Internal Rotation 4 Good Comments did not MMT ext Left Flexion (L2) 4 Good Extension (S1) 3- Fair- Abduction 3+ Fair+ Adduction 3 Fair External Rotation 4- Good- Internal Rotation 4- Good- Knee Strength Knee Manual Muscle Testing Left Flexion (S2) 5 Normal Extension (L3) 4 Good Right Flexion (S2) 5 Normal Extension (L3) 4 Good Ankle/Foot Strength Ankle and Foot Manual Muscle Testing Right Dorsiflexion (L4) 5 Normal Plantarflexion (S1) 5 Normal Comments PF tested seated B Left Dorsiflexion (L4) 5 Normal Plantarflexion (S1) 5 Normal PT-OP-T Assessment and Plan Start: 06/13/21 11:21 Freq: Status: Active Protocol: Document 06/13/21 11:23 [facility] (Rec: 06/13/21 12:22 [facility] [id number]) Physical Therapy Assessment Rehab Potential Rehabilitation Potential Good Evaluation Complexity Number of Personal Factors/Comorbidities 3 or More Number of Body Systems Impaired 4 or More Clinical Presentation at Evaluation Evolving Impairments Impairments Activity Tolerance,Balance, Functional Activities, Functional Mobility,Gait,Pain, Posture,ROM,Soft Tissue Mobility,Strength Goals pain Short Term Goal (STG) Pt will report dec pain to no more than 1/10 constant pain at baseline STG Duration 07/15/21 Stretching Press Operator Goal (LTG) Pt will be able to sit and transition as needed at work without inc pain greater than 1 point. LTG Duration 08/13/21 strength Short Term Goal (STG) pt will be indep w/HEP STG Duration 07/14/21 Stretching Press Operator Goal (LTG) Pt will score at least 4+/5 on LE strength testinga nd at least 3/5 on all planes LPM to show improved stability in order to improve pt's functional ability. LTG Duration 08/13/21 walking Short Term Goal (STG) Pt will be able to start short walks of 1/2 mile daily w/o inc pain greater than 2 points . STG Duration 07/15/21 Residential Goal (LTG) Pt will be able to walk in trails around house w/o inc of pain greater than 1 point. LTG Duration 08/13/21 LV Impairment 21/50 Short Term Goal (STG) Pt will have an improvement in LV to at least 15/20 to show improved functional ability. STG Duration 07/14/21 Stretching Press Operator Goal (LTG) Pt will have an improvement in LV to at least 9/20 to show improved functional ability. LTG Duration 08/13/21 Assessment Summary Assessment Pt presents w/chronic LBP that was improved in past with surgery, but pt has had a significant increase in the past couple years, which likely is related to pt increasing care for her mother which requires heavy lifting as her mom needs help w/all transfers. Pt has impaired posture, core and LE weakness, impaired gait and dec thoracolumbar ROM. She would benefit from skilled PT to help w/pain relief, improve posture, gait, ROM and strength and improve pt's ability to do daily tasks w/o significantly inc pain. Physical Therapy Plan Frequency and Duration Frequency of Treatment 1-2x/week Duration of Treatment 2 months Plan of Care Start Date 06/13/21 Plan of Care End Date 08/13/21 Therapeutic Interventions Therapeutic Interventions Aquatic Therapy,Balance Training,Gait Training,Home Exercise Program,Joint Mobilizations,Manual Therapy, Neuromuscular Re-education, Patient/Caregiver Education, Self-Care/Home Management,Soft Tissue Mobilization,Taping, Therapeutic Activities, Therapeutic Exercises Modalities Cold Pack/Ice Massage,Electric Stimulation,Hot Packs, Infrared Therapy,Ultrasound Next Visit Focus/Plan Next Note Type Treatment Note Next Visit Plan Sleep postures, STM to LB, supine core stability
--- NOTE | 2021-06-13 17:09 | PT.OPPOC ---
Physical, Occupational & Speech Therapy At [facility] Current Diagnoses Spondylosis without myelopathy or radiculopathy, lumbar region (06/13/21) Difficulty in walking, not elsewhere classified (06/13/21) Abnormal posture (06/13/21) Weakness (06/13/21) Other specified postprocedural states (06/13/21) Visit Care Team Role Provider Type Maeve Beebe DO Attending Provider Physician Family Provider Primary Care Provider Referring Provider Specialty: [facility] Practice Address: [address] [place] [address], [id number] Email: [email or web address] Plan Of Care PT-OP-T Assessment and Plan Start: 06/13/21 11:21 Freq: Status: Active Protocol: Document 06/13/21 11:23 [facility] (Rec: 06/13/21 12:22 [facility] [id number]) Physical Therapy Assessment Rehab Potential Rehabilitation Potential Good Evaluation Complexity Number of Personal Factors/Comorbidities 3 or More Number of Body Systems Impaired 4 or More Clinical Presentation at Evaluation Evolving Impairments Impairments Activity Tolerance,Balance, Functional Activities, Functional Mobility,Gait,Pain, Posture,ROM,Soft Tissue Mobility,Strength Goals pain Short Term Goal (STG) Pt will report dec pain to no more than 1/10 constant pain at baseline STG Duration 07/15/21 Telecom Network Manager Goal (LTG) Pt will be able to sit and transition as needed at work without inc pain greater than 1 point. LTG Duration 08/13/21 strength Short Term Goal (STG) pt will be indep w/HEP STG Duration 07/14/21 Alf Goal (LTG) Pt will score at least 4+/5 on LE strength testinga nd at least 3/5 on all planes LPM to show improved stability in order to improve pt's functional ability. LTG Duration 08/13/21 walking Short Term Goal (STG) Pt will be able to start short walks of 1/2 mile daily w/o inc pain greater than 2 points . STG Duration 07/15/21 Alf Goal (LTG) Pt will be able to walk in trails around house w/o inc of pain greater than 1 point. LTG Duration 08/13/21 LV Impairment 21/50 Short Term Goal (STG) Pt will have an improvement in LV to at least 15/20 to show improved functional ability. STG Duration 07/14/21 Alf Goal (LTG) Pt will have an improvement in LV to at least 9/20 to show improved functional ability. LTG Duration 08/13/21 Assessment Summary Assessment Pt presents w/chronic LBP that was improved in past with surgery, but pt has had a significant increase in the past couple years, which likely is related to pt increasing care for her mother which requires heavy lifting as her mom needs help w/all transfers. Pt has impaired posture, core and LE weakness, impaired gait and dec thoracolumbar ROM. She would benefit from skilled PT to help w/pain relief, improve posture, gait, ROM and strength and improve pt's ability to do daily tasks w/o significantly inc pain. Physical Therapy Plan Frequency and Duration Frequency of Treatment 1-2x/week Duration of Treatment 2 months Plan of Care Start Date 06/13/21 Plan of Care End Date 08/13/21 Therapeutic Interventions Therapeutic Interventions Aquatic Therapy,Balance Training,Gait Training,Home Exercise Program,Joint Mobilizations,Manual Therapy, Neuromuscular Re-education, Patient/Caregiver Education, Self-Care/Home Management,Soft Tissue Mobilization,Taping, Therapeutic Activities, Therapeutic Exercises Modalities Cold Pack/Ice Massage,Electric Stimulation,Hot Packs, Infrared Therapy,Ultrasound Next Visit Focus/Plan Next Note Type Treatment Note Next Visit Plan Sleep postures, STM to LB, supine core stability Plan of Care Dates Plan of Care Start Date 06/13/21 Plan of Care End Date 08/13/21 Electronically Signed by: Daja Wen, PT 06/14/21 2094 Please Sign and Return: I have reviewed this Plan of Care and certify that the skilled therapy services above are required to meet the patient?s needs. Physician Signature Date Printed Name and Credentials Clinical Instructor Signature Printed Name and Credentials
--- NOTE | 2021-06-27 12:22 | PT.OTN ---
Current Diagnoses Spondylosis without myelopathy or radiculopathy, lumbar region (06/27/21) Difficulty in walking, not elsewhere classified (06/27/21) Abnormal posture (06/27/21) Weakness (06/27/21) Other specified postprocedural states (06/27/21) Physical Therapy Treatment Note PT-OP-A Visit Information Start: 06/13/21 11:21 Freq: Status: Active Protocol: Document 06/27/21 11:22 [facility] (Rec: 06/27/21 12:22 [facility] [id number]) Out-Patient Physical Therapy Visit Information Visit Information Visit Type Treatment Note Visit Start Time 11:20 Visit Stop Time 12:02 Total Visit Minutes 42 Visit Number 20 Number of SUPERVISOR DENTAL [employer]ORATORY Visits 0 PT-OP-B Current Condition Start: 06/13/21 11:21 Freq: Status: Active Protocol: Document 06/13/21 11:23 [facility] (Rec: 06/13/21 12:22 [facility] [id number]) Current Condition History of Current Condition Onset Date worse over past 6 months Current Complaints LBP & buttocks and R>L ant thigh History of Current Condition Pt reports laminectomy and fusion L4&5 in 2009 with improvement in pain for a long time. She knows she has come for PT for her back but unsure when. Pt reports now if she bends wrong, she screams out in pain. It just gets me. Transitions are very painful right now and she has to be really careful. Pt reports LBP has been getting worse in the last year or 2 and the past 6 months or so the pain has gotten bad enough that she couldn't handle. 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 She went to [facility] from Dec to Mar and now is back with her. It requires more repetive lifting and she has almost fell a few times trying to help her transfer. Pt has to try PT before MRI. Pain at work so she has to always move herself to help w/pain. Pt has moved to close to [place] and wants to be able to walk trails. [place] about 5 years ago, hysterectomy 2002, B mastectomy 2010 & 2011 Pt was told she has moderate carpel tunnel B. Prior Treatments and Tests Started Celebrex-minor help- started seeing Dr. Feliciano 05/16- next follow up is in August . PT a long time ago-no help- unsure when after the surgery though Treatment Goals Patient/Caregiver Goals Be able to walk trails, be comfortable at work PT-OP-C Subjective Start: 06/13/21 11:21 Freq: Status: Active Protocol: Document 06/27/21 11:22 [facility] (Rec: 06/27/21 12:22 [facility] [id number]) OP-PT Subjective Patient Comments Patient Comments Pt reports ergo assessment on her desk has helped some. Her mom is now in a facility so she is no longer lifting her which has helped too PT-OP-D Balance Start: 06/13/21 11:21 Freq: Status: Active Protocol: Document 06/13/21 11:23 [facility] (Rec: 06/13/21 12:22 [facility] [id number]) Balance Tests Single Limb Standing Single Limb- Right 6 sec w/lat lean Single Limb- Left 12 sec w/lat lean PT-OP-F Manual Assessment Start: 06/13/21 11:21 Freq: Status: Active Protocol: Document 06/13/21 11:23 [facility] (Rec: 06/13/21 12:22 [facility] [id number]) Manual Assessments Soft Tissue Assessment Soft Tissue Mobility Assessment pain to gentle palpation to ES , QL, glutes, SI, sacrum Joint Mobility Assessment Joint Mobility Assessment equal greater trochanter, L iliac Crest PT-OP-J Posture/Palpation/Skin Start: 06/13/21 11:21 Freq: Status: Active Protocol: Document 06/13/21 11:23 [facility] (Rec: 06/13/21 12:22 [facility] [id number]) Posture Evaluation Dylon Postural Classification System Dylon Postural Classifications Posterior/Anterior Lumbar Protective Mechanism Left AP 1 Lumbar Protective Mechanism Right AP 0 Lumbar Protective Mechanism Left PA 0 Lumbar Protective Mechanism Right PA 0 PT-OP-K Range of Motion Start: 06/13/21 11:21 Freq: Status: Active Protocol: Document 06/13/21 11:23 [facility] (Rec: 06/13/21 12:22 [facility] [id number]) Lumbar Spine Range of Motion Lumbar Spine Active Degrees Flexion 32 Extension 7 Rotation Left 50 Rotation Right 26 Lateral Flexion Left 9 Lateral Flexion Right 8 ROM Limitations Pain PT-OP-L Special Tests Start: 06/13/21 11:21 Freq: Status: Active Protocol: Document 06/13/21 11:23 [facility] (Rec: 06/13/21 12:22 [facility] [id number]) Special Tests Lumbar Spine Special Tests Slump Test Results neg B Straight Leg Raise Test Results 65 R pain LB & HS Comments 72 L HS tightness PT-OP-M Strength Start: 06/13/21 11:21 Freq: Status: Active Protocol: Document 06/13/21 11:23 [facility] (Rec: 06/13/21 12:22 [facility] [id number]) Hip Strength Hip Manual Muscle Testing Right Flexion (L2) 4 Good Extension (S1) 3 Fair Abduction 4- Good- Adduction 3 Fair External Rotation 4 Good Internal Rotation 4 Good Comments did not MMT ext Left Flexion (L2) 4 Good Extension (S1) 3- Fair- Abduction 3+ Fair+ Adduction 3 Fair External Rotation 4- Good- Internal Rotation 4- Good- Knee Strength Knee Manual Muscle Testing Left Flexion (S2) 5 Normal Extension (L3) 4 Good Right Flexion (S2) 5 Normal Extension (L3) 4 Good Ankle/Foot Strength Ankle and Foot Manual Muscle Testing Right Dorsiflexion (L4) 5 Normal Plantarflexion (S1) 5 Normal Comments PF tested seated B Left Dorsiflexion (L4) 5 Normal Plantarflexion (S1) 5 Normal PT-OP-Q Treatments Start: 06/13/21 11:21 Freq: Status: Active Protocol: Document 06/27/21 11:22 [facility] (Rec: 06/27/21 12:22 [facility] [id number]) Therapeutic Exercises Supine Exercises LTR Side bilateral Reps/Minutes 10 Comments small comfortable range w/cues for core to help bring legs back up core Supine Exercise Name BKFO Side bilateral Reps/Minutes 15 Comments focus on core engagement & reset between reps stretch Supine Exercise Name 1. piriformis 2. figure 4 Side bilateral Reps/Minutes 30 sec ea pelvic tilt Side bilateral Reps/Minutes 2x10 Comments tactile cues for direction & movement Therapeutic Activity Therapeutic Activity sleep Comments 1. s/l sleep propping w/use of pillows btwn legs, to support top arm and only under head and neck & towel under side 2. supine w/2 pillows supporting all of legs & edu that can add pillows under arms and towel under lumbar spine Manual Therapy Treatment Soft Tissue Mobilization STM/MFR Body Location scar Mobilization Type Myofascial Release Intensity/Depth Superficial Body Position Sidelying PT-OP-T Assessment and Plan Start: 06/13/21 11:21 Freq: Status: Active Protocol: Document 06/27/21 11:22 [facility] (Rec: 06/27/21 12:22 [facility] [id number]) Physical Therapy Assessment Goals pain Short Term Goal (STG) Pt will report dec pain to no more than 1/10 constant pain at baseline STG Duration 07/15/21 Jail Goal (LTG) Pt will be able to sit and transition as needed at work without inc pain greater than 1 point. LTG Duration 08/13/21 strength Short Term Goal (STG) pt will be indep w/HEP STG Duration 07/14/21 Jail Goal (LTG) Pt will score at least 4+/5 on LE strength testinga nd at least 3/5 on all planes LPM to show improved stability in order to improve pt's functional ability. LTG Duration 08/13/21 walking Short Term Goal (STG) Pt will be able to start short walks of 1/2 mile daily w/o inc pain greater than 2 points . STG Duration 07/15/21 Road Traffic Controller Goal (LTG) Pt will be able to walk in trails around house w/o inc of pain greater than 1 point. LTG Duration 08/13/21 LV Impairment 21/50 Short Term Goal (STG) Pt will have an improvement in LV to at least 15/20 to show improved functional ability. STG Duration 07/14/21 Jail Goal (LTG) Pt will have an improvement in LV to at least 9/20 to show improved functional ability. LTG Duration 08/13/21 Assessment Summary Assessment Pt was able to tolerate exercises w/only minor compaint of heat to her low back but not pain. Edu to stay in comfortable range. Seh was very comfortable when taugth to position apprpriately and felt dec in pain. Tolerated manual w/light MFR Physical Therapy Plan Frequency and Duration Frequency of Treatment 1-2x/week Duration of Treatment 2 months Plan of Care Start Date 06/13/21 Plan of Care End Date 08/13/21 Next Visit Focus/Plan Next Note Type Treatment Note Next Visit Plan review exercises & do further hip stability& try manual as pt tolerates
--- NOTE | 2021-07-11 09:33 | PT.OTN ---
Current Diagnoses Spondylosis without myelopathy or radiculopathy, lumbar region (07/11/21) Difficulty in walking, not elsewhere classified (07/11/21) Abnormal posture (07/11/21) Weakness (07/11/21) Other specified postprocedural states (07/11/21) Physical Therapy Treatment Note PT-OP-A Visit Information Start: 06/13/21 11:21 Freq: Status: Active Protocol: Document 07/11/21 07:39 [facility] (Rec: 07/11/21 09:33 [facility] [id number]) Out-Patient Physical Therapy Visit Information Visit Information Visit Type Treatment Note Visit Start Time 08:18 Visit Stop Time 08:59 Total Visit Minutes 41 Visit Number 3 Number of EXCHANGE TROUBLE SHOOTER Visits 0 PT-OP-B Current Condition Start: 06/13/21 11:21 Freq: Status: Active Protocol: Document 06/13/21 11:23 [facility] (Rec: 06/13/21 12:22 [facility] [id number]) Current Condition History of Current Condition Onset Date worse over past 6 months Current Complaints LBP & buttocks and R>L ant thigh History of Current Condition Pt reports laminectomy and fusion L4&5 in 2009 with improvement in pain for a long time. She knows she has come for PT for her back but unsure when. Pt reports now if she bends wrong, she screams out in pain. It just gets me. Transitions are very painful right now and she has to be really careful. Pt reports LBP has been getting worse in the last year or 2 and the past 6 months or so the pain has gotten bad enough that she couldn't handle. 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 She went to [facility] from Dec to Mar and now is back with her. It requires more repetive lifting and she has almost fell a few times trying to help her transfer. Pt has to try PT before MRI. Pain at work so she has to always move herself to help w/pain. Pt has moved to close to [place] and wants to be able to walk trails. [place] about 5 years ago, hysterectomy 2002, B mastectomy 2010 & 2011 Pt was told she has moderate carpel tunnel B. Prior Treatments and Tests Started Celebrex-minor help- started seeing Dr. Feliciano 05/16- next follow up is in August . PT a long time ago-no help- unsure when after the surgery though Treatment Goals Patient/Caregiver Goals Be able to walk trails, be comfortable at work PT-OP-C Subjective Start: 06/13/21 11:21 Freq: Status: Active Protocol: Document 07/11/21 07:39 [facility] (Rec: 07/11/21 09:33 [facility] [id number]) OP-PT Subjective Patient Comments Patient Comments Pt reports some soreness after last session but was in the car all day looking fro a dryer. She used the ice pack PT-OP-D Balance Start: 06/13/21 11:21 Freq: Status: Active Protocol: Document 06/13/21 11:23 [facility] (Rec: 06/13/21 12:22 [facility] [id number]) Balance Tests Single Limb Standing Single Limb- Right 6 sec w/lat lean Single Limb- Left 12 sec w/lat lean PT-OP-F Manual Assessment Start: 06/13/21 11:21 Freq: Status: Active Protocol: Document 06/13/21 11:23 [facility] (Rec: 06/13/21 12:22 [facility] [id number]) Manual Assessments Soft Tissue Assessment Soft Tissue Mobility Assessment pain to gentle palpation to ES , QL, glutes, SI, sacrum Joint Mobility Assessment Joint Mobility Assessment equal greater trochanter, L iliac Crest PT-OP-J Posture/Palpation/Skin Start: 06/13/21 11:21 Freq: Status: Active Protocol: Document 06/13/21 11:23 [facility] (Rec: 06/13/21 12:22 [facility] [id number]) Posture Evaluation Dylon Postural Classification System Dylon Postural Classifications Posterior/Anterior Lumbar Protective Mechanism Left AP 1 Lumbar Protective Mechanism Right AP 0 Lumbar Protective Mechanism Left PA 0 Lumbar Protective Mechanism Right PA 0 PT-OP-K Range of Motion Start: 06/13/21 11:21 Freq: Status: Active Protocol: Document 06/13/21 11:23 [facility] (Rec: 06/13/21 12:22 [facility] [id number]) Lumbar Spine Range of Motion Lumbar Spine Active Degrees Flexion 32 Extension 7 Rotation Left 50 Rotation Right 26 Lateral Flexion Left 9 Lateral Flexion Right 8 ROM Limitations Pain PT-OP-L Special Tests Start: 06/13/21 11:21 Freq: Status: Active Protocol: Document 06/13/21 11:23 [facility] (Rec: 06/13/21 12:22 [facility] [id number]) Special Tests Lumbar Spine Special Tests Slump Test Results neg B Straight Leg Raise Test Results 65 R pain LB & HS Comments 72 L HS tightness PT-OP-M Strength Start: 06/13/21 11:21 Freq: Status: Active Protocol: Document 06/13/21 11:23 [facility] (Rec: 06/13/21 12:22 [facility] [id number]) Hip Strength Hip Manual Muscle Testing Right Flexion (L2) 4 Good Extension (S1) 3 Fair Abduction 4- Good- Adduction 3 Fair External Rotation 4 Good Internal Rotation 4 Good Comments did not MMT ext Left Flexion (L2) 4 Good Extension (S1) 3- Fair- Abduction 3+ Fair+ Adduction 3 Fair External Rotation 4- Good- Internal Rotation 4- Good- Knee Strength Knee Manual Muscle Testing Left Flexion (S2) 5 Normal Extension (L3) 4 Good Right Flexion (S2) 5 Normal Extension (L3) 4 Good Ankle/Foot Strength Ankle and Foot Manual Muscle Testing Right Dorsiflexion (L4) 5 Normal Plantarflexion (S1) 5 Normal Comments PF tested seated B Left Dorsiflexion (L4) 5 Normal Plantarflexion (S1) 5 Normal PT-OP-Q Treatments Start: 06/13/21 11:21 Freq: Status: Active Protocol: Document 07/11/21 07:39 [facility] (Rec: 07/11/21 09:33 [facility] [id number]) Therapeutic Exercises Supine Exercises LTR Side bilateral Reps/Minutes 10 Comments small comfortable range w/cues for core to help bring legs back up core Supine Exercise Name BKFO Side bilateral Reps/Minutes 15 Comments focus on core engagement & reset between reps stretch Supine Exercise Name 1. piriformis 2. figure 4 Side bilateral Reps/Minutes 1 min ea pelvic tilt Side bilateral Reps/Minutes 2x10 Comments tactile cues for direction & movement Other Exercises jaime pose Reps/Minutes 1 min Manual Therapy Treatment Soft Tissue Mobilization hip Body Location B sup glutes, L med glutes & piriformis Mobilization Type Rolling,Sustained Pressure Intensity/Depth Moderate Body Position Prone Comments w/hip IR/ER STM Body Location along L SI Mobilization Type Rolling Intensity/Depth Moderate Body Position Prone STM/MFR Body Location scar Mobilization Type Myofascial Release Intensity/Depth Superficial Body Position Prone Joint Mobilizations sacrum Joint L Direction cadual FM & LUPA hip Joint L Direction on axis ER FM PT-OP-T Assessment and Plan Start: 06/13/21 11:21 Freq: Status: Active Protocol: Document 07/11/21 07:39 [facility] (Rec: 07/11/21 09:33 [facility] [id number]) Physical Therapy Assessment Goals pain Short Term Goal (STG) Pt will report dec pain to no more than 1/10 constant pain at baseline STG Duration 07/15/21 Half-Way Goal (LTG) Pt will be able to sit and transition as needed at work without inc pain greater than 1 point. LTG Duration 08/13/21 strength Short Term Goal (STG) pt will be indep w/HEP STG Duration 07/14/21 School Supervisor Goal (LTG) Pt will score at least 4+/5 on LE strength testinga nd at least 3/5 on all planes LPM to show improved stability in order to improve pt's functional ability. LTG Duration 08/13/21 walking Short Term Goal (STG) Pt will be able to start short walks of 1/2 mile daily w/o inc pain greater than 2 points . STG Duration 07/15/21 Half-Way Goal (LTG) Pt will be able to walk in trails around house w/o inc of pain greater than 1 point. LTG Duration 08/13/21 LV Impairment 21/50 Short Term Goal (STG) Pt will have an improvement in LV to at least 15/20 to show improved functional ability. STG Duration 07/14/21 Half-Way Goal (LTG) Pt will have an improvement in LV to at least 9/20 to show improved functional ability. LTG Duration 08/13/21 Assessment Summary Assessment Pt did well with exercies but did require cues for all the exercises. She tolerated manual well and had improved hip rotation on L significantly after manual treatment. Physical Therapy Plan Frequency and Duration Frequency of Treatment 1-2x/week Duration of Treatment 2 months Plan of Care Start Date 06/13/21 Plan of Care End Date 08/13/21 Next Visit Focus/Plan Next Note Type Treatment Note Next Visit Plan review exercises quickl and progress hip stabiltiy & cont to do manual as tolerated
--- NOTE | 2021-07-18 09:01 | PT.OTN ---
Current Diagnoses Spondylosis without myelopathy or radiculopathy, lumbar region (07/18/21) Difficulty in walking, not elsewhere classified (07/18/21) Abnormal posture (07/18/21) Weakness (07/18/21) Other specified postprocedural states (07/18/21) Physical Therapy Treatment Note PT-OP-A Visit Information Start: 06/13/21 11:21 Freq: Status: Active Protocol: Document 07/18/21 08:20 [facility] (Rec: 07/18/21 09:01 [facility] [id number]) Out-Patient Physical Therapy Visit Information Visit Information Visit Type Treatment Note Visit Start Time 08:19 Visit Stop Time 08:59 Total Visit Minutes 40 Visit Number 4 Number of FINISH PHOTOGRAPHER Visits 0 PT-OP-B Current Condition Start: 06/13/21 11:21 Freq: Status: Active Protocol: Document 06/13/21 11:23 [facility] (Rec: 06/13/21 12:22 [facility] [id number]) Current Condition History of Current Condition Onset Date worse over past 6 months Current Complaints LBP & buttocks and R>L ant thigh History of Current Condition Pt reports laminectomy and fusion L4&5 in 2009 with improvement in pain for a long time. She knows she has come for PT for her back but unsure when. Pt reports now if she bends wrong, she screams out in pain. It just gets me. Transitions are very painful right now and she has to be really careful. Pt reports LBP has been getting worse in the last year or 2 and the past 6 months or so the pain has gotten bad enough that she couldn't handle. 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 She went to [facility] from Dec to Mar and now is back with her. It requires more repetive lifting and she has almost fell a few times trying to help her transfer. Pt has to try PT before MRI. Pain at work so she has to always move herself to help w/pain. Pt has moved to close to [place] and wants to be able to walk trails. [place] about 5 years ago, hysterectomy 2002, B mastectomy 2010 & 2011 Pt was told she has moderate carpel tunnel B. Prior Treatments and Tests Started Celebrex-minor help- started seeing Dr. Feliciano 05/16- next follow up is in August . PT a long time ago-no help- unsure when after the surgery though Treatment Goals Patient/Caregiver Goals Be able to walk trails, be comfortable at work PT-OP-C Subjective Start: 06/13/21 11:21 Freq: Status: Active Protocol: Document 07/18/21 08:20 [facility] (Rec: 07/18/21 09:01 [facility] [id number]) OP-PT Subjective Patient Comments Patient Comments pt reports she has not been able to do exercises d/t visiting mom at hospital. Notes being sore after last session. PT-OP-D Balance Start: 06/13/21 11:21 Freq: Status: Active Protocol: Document 06/13/21 11:23 [facility] (Rec: 06/13/21 12:22 [facility] [id number]) Balance Tests Single Limb Standing Single Limb- Right 6 sec w/lat lean Single Limb- Left 12 sec w/lat lean PT-OP-F Manual Assessment Start: 06/13/21 11:21 Freq: Status: Active Protocol: Document 06/13/21 11:23 [facility] (Rec: 06/13/21 12:22 [facility] [id number]) Manual Assessments Soft Tissue Assessment Soft Tissue Mobility Assessment pain to gentle palpation to ES , QL, glutes, SI, sacrum Joint Mobility Assessment Joint Mobility Assessment equal greater trochanter, L iliac Crest PT-OP-J Posture/Palpation/Skin Start: 06/13/21 11:21 Freq: Status: Active Protocol: Document 06/13/21 11:23 [facility] (Rec: 06/13/21 12:22 [facility] [id number]) Posture Evaluation Dylon Postural Classification System Dylon Postural Classifications Posterior/Anterior Lumbar Protective Mechanism Left AP 1 Lumbar Protective Mechanism Right AP 0 Lumbar Protective Mechanism Left PA 0 Lumbar Protective Mechanism Right PA 0 PT-OP-K Range of Motion Start: 06/13/21 11:21 Freq: Status: Active Protocol: Document 06/13/21 11:23 [facility] (Rec: 06/13/21 12:22 [facility] [id number]) Lumbar Spine Range of Motion Lumbar Spine Active Degrees Flexion 32 Extension 7 Rotation Left 50 Rotation Right 26 Lateral Flexion Left 9 Lateral Flexion Right 8 ROM Limitations Pain PT-OP-L Special Tests Start: 06/13/21 11:21 Freq: Status: Active Protocol: Document 06/13/21 11:23 [facility] (Rec: 06/13/21 12:22 [facility] [id number]) Special Tests Lumbar Spine Special Tests Slump Test Results neg B Straight Leg Raise Test Results 65 R pain LB & HS Comments 72 L HS tightness PT-OP-M Strength Start: 06/13/21 11:21 Freq: Status: Active Protocol: Document 06/13/21 11:23 [facility] (Rec: 06/13/21 12:22 [facility] [id number]) Hip Strength Hip Manual Muscle Testing Right Flexion (L2) 4 Good Extension (S1) 3 Fair Abduction 4- Good- Adduction 3 Fair External Rotation 4 Good Internal Rotation 4 Good Comments did not MMT ext Left Flexion (L2) 4 Good Extension (S1) 3- Fair- Abduction 3+ Fair+ Adduction 3 Fair External Rotation 4- Good- Internal Rotation 4- Good- Knee Strength Knee Manual Muscle Testing Left Flexion (S2) 5 Normal Extension (L3) 4 Good Right Flexion (S2) 5 Normal Extension (L3) 4 Good Ankle/Foot Strength Ankle and Foot Manual Muscle Testing Right Dorsiflexion (L4) 5 Normal Plantarflexion (S1) 5 Normal Comments PF tested seated B Left Dorsiflexion (L4) 5 Normal Plantarflexion (S1) 5 Normal PT-OP-Q Treatments Start: 06/13/21 11:21 Freq: Status: Active Protocol: Document 07/18/21 08:20 [facility] (Rec: 07/18/21 09:01 [facility] [id number]) Therapeutic Exercises Supine Exercises LTR Side bilateral Reps/Minutes 10 Comments small comfortable range w/cues for core to help bring legs back up core Supine Exercise Name 1.BKFO 2. march Side bilateral Reps/Minutes 15 ea Comments focus on core engagement & reset between reps stretch Supine Exercise Name 1. piriformis 2. figure 4 Side bilateral Reps/Minutes 1 min ea pelvic tilt Side bilateral Reps/Minutes 10 Comments min cues Sitting Exercises stretch Sitting Exercise Name 1. rotation 2. QL SB 3. figure 4 Side bilateral Reps/Minutes 30 sec Other Exercises jaime pose Other Exercise Name in standing Side bilateral Reps/Minutes 30 sec Manual Therapy Treatment Soft Tissue Mobilization hip Body Location R upper glutes Mobilization Type Rolling,Sustained Pressure Intensity/Depth Moderate Body Position Sidelying STM Body Location along R SI, R>L ES, R QL Mobilization Type Rolling Intensity/Depth Moderate Body Position Sidelying STM/MFR Body Location scar Mobilization Type Myofascial Release Intensity/Depth Superficial Body Position Sidelying Comments w/gentle ant elevation/post dep PT-OP-T Assessment and Plan Start: 06/13/21 11:21 Freq: Status: Active Protocol: Document 07/18/21 08:20 [facility] (Rec: 07/18/21 09:01 [facility] [id number]) Physical Therapy Assessment Goals pain Short Term Goal (STG) Pt will report dec pain to no more than 1/10 constant pain at baseline STG Duration 07/15/21 Fci Goal (LTG) Pt will be able to sit and transition as needed at work without inc pain greater than 1 point. LTG Duration 08/13/21 strength Short Term Goal (STG) pt will be indep w/HEP STG Duration 07/14/21 Repairer Kiln Car Goal (LTG) Pt will score at least 4+/5 on LE strength testinga nd at least 3/5 on all planes LPM to show improved stability in order to improve pt's functional ability. LTG Duration 08/13/21 walking Short Term Goal (STG) Pt will be able to start short walks of 1/2 mile daily w/o inc pain greater than 2 points . STG Duration 07/15/21 Repairer Kiln Car Goal (LTG) Pt will be able to walk in trails around house w/o inc of pain greater than 1 point. LTG Duration 08/13/21 LV Impairment 21/50 Short Term Goal (STG) Pt will have an improvement in LV to at least 15/20 to show improved functional ability. STG Duration 07/14/21 Repairer Kiln Car Goal (LTG) Pt will have an improvement in LV to at least 9/20 to show improved functional ability. LTG Duration 08/13/21 Assessment Summary Assessment Pt still requires cues for exercises still and was given stretches to do in seated and standing to help w/pain when at work and visiting mom. Gentle w/manual avoiding point of pt feeling pain. Physical Therapy Plan Frequency and Duration Frequency of Treatment 1-2x/week Duration of Treatment 2 months Plan of Care Start Date 06/13/21 Plan of Care End Date 08/13/21 Next Visit Focus/Plan Next Note Type Treatment Note Next Visit Plan review exercises as neededand progress hip stabiltiy & cont to do manual as tolerated
--- NOTE | 2021-08-11 16:57 | PT.OPDS ---
Current Diagnoses Spondylosis without myelopathy or radiculopathy, lumbar region (07/18/21) Difficulty in walking, not elsewhere classified (07/18/21) Abnormal posture (07/18/21) Weakness (07/18/21) Other specified postprocedural states (07/18/21) Visit Care Team Role Provider Type Maeve Beebe DO Attending Provider Physician Family Provider Primary Care Provider Referring Provider Specialty: Family Practice Address: [address] [place] [address], [facility] [place], [address] Email: [email or web address] Visit Number Visit Number 4 Discharge Summary PT-OP-B Current Condition Start: 06/13/21 11:21 Freq: Status: Active Protocol: Document 06/13/21 11:23 [facility] (Rec: 06/13/21 12:22 [facility] [id number]) Current Condition History of Current Condition Onset Date worse over past 6 months Current Complaints LBP & buttocks and R>L ant thigh History of Current Condition Pt reports laminectomy and fusion L4&5 in 2009 with improvement in pain for a long time. She knows she has come for PT for her back but unsure when. Pt reports now if she bends wrong, she screams out in pain. It just gets me. Transitions are very painful right now and she has to be really careful. Pt reports LBP has been getting worse in the last year or 2 and the past 6 months or so the pain has gotten bad enough that she couldn't handle. 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 She went to [facility] from Dec to Mar and now is back with her. It requires more repetive lifting and she has almost fell a few times trying to help her transfer. Pt has to try PT before MRI. Pain at work so she has to always move herself to help w/pain. Pt has moved to close to [place] and wants to be able to walk trails. [place] about 5 years ago, hysterectomy 2002, B mastectomy 2010 & 2011 Pt was told she has moderate carpel tunnel B. Prior Treatments and Tests Started Celebrex-minor help- started seeing Dr. Feliciano 05/16- next follow up is in August . PT a long time ago-no help- unsure when after the surgery though Treatment Goals Patient/Caregiver Goals Be able to walk trails, be comfortable at work PT-OP-C Subjective Start: 06/13/21 11:21 Freq: Status: Active Protocol: Document 07/18/21 08:20 [facility] (Rec: 07/18/21 09:01 [facility] [id number]) OP-PT Subjective Patient Comments Patient Comments pt reports she has not been able to do exercises d/t visiting mom at hospital. Notes being sore after last session. PT-OP-D Balance Start: 06/13/21 11:21 Freq: Status: Active Protocol: Document 06/13/21 11:23 [facility] (Rec: 06/13/21 12:22 [facility] [id number]) Balance Tests Single Limb Standing Single Limb- Right 6 sec w/lat lean Single Limb- Left 12 sec w/lat lean PT-OP-F Manual Assessment Start: 06/13/21 11:21 Freq: Status: Active Protocol: Document 06/13/21 11:23 [facility] (Rec: 06/13/21 12:22 [facility] [id number]) Manual Assessments Soft Tissue Assessment Soft Tissue Mobility Assessment pain to gentle palpation to ES , QL, glutes, SI, sacrum Joint Mobility Assessment Joint Mobility Assessment equal greater trochanter, L iliac Crest PT-OP-J Posture/Palpation/Skin Start: 06/13/21 11:21 Freq: Status: Active Protocol: Document 06/13/21 11:23 [facility] (Rec: 06/13/21 12:22 [facility] [id number]) Posture Evaluation Dylon Postural Classification System Dylon Postural Classifications Posterior/Anterior Lumbar Protective Mechanism Left AP 1 Lumbar Protective Mechanism Right AP 0 Lumbar Protective Mechanism Left PA 0 Lumbar Protective Mechanism Right PA 0 PT-OP-K Range of Motion Start: 06/13/21 11:21 Freq: Status: Active Protocol: Document 06/13/21 11:23 [facility] (Rec: 06/13/21 12:22 [facility] [id number]) Lumbar Spine Range of Motion Lumbar Spine Active Degrees Flexion 32 Extension 7 Rotation Left 50 Rotation Right 26 Lateral Flexion Left 9 Lateral Flexion Right 8 ROM Limitations Pain PT-OP-L Special Tests Start: 06/13/21 11:21 Freq: Status: Active Protocol: Document 06/13/21 11:23 [facility] (Rec: 06/13/21 12:22 [facility] [id number]) Special Tests Lumbar Spine Special Tests Slump Test Results neg B Straight Leg Raise Test Results 65 R pain LB & HS Comments 72 L HS tightness PT-OP-M Strength Start: 06/13/21 11:21 Freq: Status: Active Protocol: Document 06/13/21 11:23 [facility] (Rec: 06/13/21 12:22 [facility] [id number]) Hip Strength Hip Manual Muscle Testing Right Flexion (L2) 4 Good Extension (S1) 3 Fair Abduction 4- Good- Adduction 3 Fair External Rotation 4 Good Internal Rotation 4 Good Comments did not MMT ext Left Flexion (L2) 4 Good Extension (S1) 3- Fair- Abduction 3+ Fair+ Adduction 3 Fair External Rotation 4- Good- Internal Rotation 4- Good- Knee Strength Knee Manual Muscle Testing Left Flexion (S2) 5 Normal Extension (L3) 4 Good Right Flexion (S2) 5 Normal Extension (L3) 4 Good Ankle/Foot Strength Ankle and Foot Manual Muscle Testing Right Dorsiflexion (L4) 5 Normal Plantarflexion (S1) 5 Normal Comments PF tested seated B Left Dorsiflexion (L4) 5 Normal Plantarflexion (S1) 5 Normal PT-OP-T Assessment and Plan Start: 06/13/21 11:21 Freq: Status: Active Protocol: Document 08/11/21 16:57 [facility] (Rec: 08/11/21 16:57 [facility] [id number]) Physical Therapy Assessment Assessment Summary Assessment Pt called and cancelled all PT visits d/t feeling sore after PT sessions and did not feel any benefit from PT. DC d/t pt request. Physical Therapy Plan Discharge Physical Therapy Discharge Reasons Patient Request
== END 2021-08-12 09:23 ==
LOC: PHYS 08:15
PROVIDERS: Family Provider Family Medicine; PCP Family Medicine; Referring Provider Family Medicine; Visit Provider Family Medicine
DX: M47.816 Spondylosis without myelopathy or radiculopathy, lumbar region (principal); Z98.890 Other specified postprocedural states; R53.1 Weakness; R29.3 Abnormal posture; R26.2 Difficulty in walking, not elsewhere classified
CPT/HCPCS: 97110; 97140; 97162; 97530

== ENCOUNTER → 2021-07-25 09:31 | Outpatient (CLI) | payer OTHER, SELFPAY ==
[2021-07-25 10:19] LABS: COVID19 -Nasal RAPID Negative (Negative)
== END ==
PROVIDERS: Family Provider Family Medicine; PCP Family Medicine; Visit Provider Surgery
DX: Z01.812 Encounter for preprocedural laboratory examination (principal); Z20.822 Contact with and (suspected) exposure to COVID-19
CPT/HCPCS: 87635; C9803

== ENCOUNTER → 2021-10-07 07:38 | Outpatient (CLI) | payer OTHER, SELFPAY ==
--- NOTE | 2021-10-07 07:39 | DI.MRI.S_ITS ---
PROCEDURE: MR LUMBAR SPINE WO CON INDICATIONS: Chronic progressive axial low back pain TECHNIQUE: Noncontrast sagittal T1 spin echo and T2 fast echo, sagittal STIR, and T2 fast spin echo through the lumbar spine. In cases with scoliosis, additional coronal T2 fast spin echo may be performed. COMPARISON: [facility], CR, XR LUMBAR SPINE MIN 4V, 04/05/2021, 13:04. FINDINGS: Image quality: Portions of the lower pelvis are suboptimally evaluated secondary to metallic streak artifact from lumbar fusion Alignment and Curvature: Posterior fusion is present at L4-5. There is good anatomic alignment. Bone Marrow: Marrow is of normal overall signal. No acute vertebral body compression fractures. Spinal Cord: Conus medullaris terminates at the L1 level. Visualized cord demonstrates normal signal and size. Paraspinous Soft Tissues: No paravertebral masses. Discs: Severe desiccation is present L5-S1, minimal throughout the remainder of the non fused portions of the lumbar spine. L1-L2: No disc bulge, spinal stenosis or foraminal narrowing. L2-L3: Minimal disc bulge without spinal stenosis or foraminal narrowing. Minimal epidural lipomatosis and mild facet and ligamentum flavum hypertrophy. L3-L4: Mild disc bulge with mild spinal stenosis. Minimal left foraminal narrowing with facet and ligamentum flavum hypertrophy. L4-L5: Disc bulge with posterior protrusion and suspected superimposed extrusion is present. Slight effacement of the anterior thecal sac is present. Minimal left foraminal narrowing. L5-S1: Disc bulge with superimposed posterior central protrusion with indentation of the anterior thecal sac. Moderate bilateral foraminal narrowing with facet hypertrophy. IMPRESSION: L4-5 fusion. Multilevel [id number] overall spinal stenosis most notable at L5-S1 secondary to protrusion. Moderate bilateral foraminal narrowing at L5-S1 secondary to facet/ligamentum flavum arthropathy. Dictated by: Tiera Lu M.D. on 10/07/2021 at 17:07 Approved by: Tiera Lu M.D. on 10/07/2021 at 17:11
== END ==
PROVIDERS: Family Provider Family Medicine; PCP Family Medicine; Referring Provider Physical Medicine & Rehabilitation; Visit Provider Physical Medicine & Rehabilitation
DX: M51.27 Other intervertebral disc displacement, lumbosacral region (principal); M48.07 Spinal stenosis, lumbosacral region; M47.816 Spondylosis without myelopathy or radiculopathy, lumbar region; Z98.1 Arthrodesis status
CPT/HCPCS: 72148

== ENCOUNTER → 2021-11-08 15:34 | Outpatient (CLI) | payer OTHER, SELFPAY ==
[2021-11-08 17:56] LABS: COVID19 -Nasal RAPID Negative (Negative)
== END ==
PROVIDERS: Family Provider Family Medicine; PCP Family Medicine; Visit Provider Surgery
DX: Z01.812 Encounter for preprocedural laboratory examination (principal); Z20.822 Contact with and (suspected) exposure to COVID-19
CPT/HCPCS: 87635; C9803

== ENCOUNTER → 2021-11-21 11:43 | Outpatient (CLI) | payer OTHER, SELFPAY ==
[2021-11-21 12:41] LABS: COVID19 -Nasal RAPID Negative (Negative)
== END ==
PROVIDERS: Surgery; Family Provider Family Medicine; PCP Family Medicine; Visit Provider Physical Medicine & Rehabilitation
DX: Z20.822 Contact with and (suspected) exposure to COVID-19 (principal); Z01.812 Encounter for preprocedural laboratory examination
CPT/HCPCS: 87635; C9803

== ENCOUNTER 2021-11-22 15:03 | Outpatient (CLI) | payer OTHER, SELFPAY ==
[2021-11-22] VITALS (8 sets, daily range): BP systolic 113–169; BP diastolic 58–99; PULSE 81–93; RESP 12–21; TEMP 36.4; O2SAT 95–98
--- NOTE | 2021-11-22 15:04 | DI.RAD.S_ITS ---
PROCEDURE: PAIN L INTERLAMINAR/CAUDAL INJ INDICATIONS: SPONDYLOSIS COMPARISON: [facility], MR, MR LUMBAR SPINE WO CON, 10/07/2021, 7:44. [facility], CR, XR LUMBAR SPINE MIN 4V, 04/05/2021, 13:04. FINDINGS: Fluoroscopic spot filming was performed to verify placement of a spinal needle at the L5-S1 level, as labeled on the films. Appropriate location of the needle tip was confirmed by injection of iodinated contrast. IMPRESSION: No significant intraprocedural abnormality. Dictated by: Armand Alexander M.D. on 11/22/2021 at 17:42 Approved by: Armand Alexander M.D. on 11/22/2021 at 17:43
[2021-11-22] MEDS: MIDAZOLAM 2 MG/2 ML VIAL IV (15:34)
[2021-11-22] MEDS: DEXAMETHASONE 10 MG/ML VIAL 20 MG INJ (15:40)
[2021-11-22] MEDS: BUPIVACAINE 0.25% (PF) VIAL 2 ML INJ (15:41)
[2021-11-22] MEDS: IOPAMIDOL 15 ML VIAL 3 ML INJ (15:41)
[2021-11-22] MEDS: BETAMETHASONE 30 MG/5 ML MDV 6 MG INJ (15:41)
--- NOTE | 2021-11-22 15:48 | PM.PROC.IR.1 ---
Date/Time/Diagnoses Date of procedure: 11/22/21 Time of procedure: 15:48 Pre-procedure diagnosis: 1. HNP WITH RADICULAR FEATURES, 2. MULTILEVEL CENTRAL STENOSIS, Post-procedure diagnosis: same Procedure Notes Procedure: 1. FLUOROSCOPICALLY GUIDED CONTRAST CONTROLLED INTERLAMINAR EPIDURAL STEROID INJECTION - L5/S1 Indications: Demetra Steele is referred by Dr. Beebe for treatment of Bilateral Foraminal Stenosis L>R LE symptoms. Physician: Salty Maria Total Fluoroscopy time (seconds): 5 Total sedation minutes: 10 Complications: none Procedure in detail & Post-procedure care: FINDINGS Multilevel Central Spinal Stenosis with Nerve Root Compression DESCRIPTION OF PROCEDURE Fluoroscopically guided, contrast-controlled L5/S1 translaminar epidural steroid injection. Following review of allergy and review of potential side effects and complications, including, but not necessarily limited to, infection, allergic reaction, local tissue breakdown, temporary as well as permanent nerve injury, paralysis, stroke and possible , the patient indicated that the patient understood and agreed to proceed. An informed consent document was signed by the patient, witnessed by a nurse, and placed in the patient's chart. Additionally, other treatment options including modalities, medications, and physical therapy were reviewed with the patient. After review of previous anaesthesic history and IV conscious sedation the patient was deemed safe to proceed with today?s procedure with IV conscious sedation as ASA class II designation. Safety time-out was performed to confirm patient ID, procedure to be performed and site of procedure. IV sedation was accomplished with a combination of 2mg of Versed administered by the RN after DO order, titrated to patient comfort during the course of the procedure while the patient remained responsive to all verbal commands. In the prone position, following sterile prep and drape of the lumbar region, the L5/S1 translaminar space was identified fluoroscopically. The skin was anesthetized via a 25-gauge, 1.5-inch needle with 1% lidocaine solution. At this point, a 22-gauge short bevel spinal needle was atraumatically introduced and advanced under fluoroscopic guidance into the region of the L5/S1 translaminar space. Depth was confirmed on lateral view. Radiological data, including multiple fluoroscopic views of the lumbar spine, reveal a spinal needle at the L5/S1 translaminar space. Lateral views then show placement of the needle in the epidural space. Subsequent views show contrast material flowing superiorly and inferiorly in the epidural space. No vascular or intrathecal uptake is observed. At this point, using loss of resistance technique with saline and air, the epidural space was entered. This was confirmed following negative aspiration with injection of approximately 1.5cc of Isovue 200, showing excellent epidural flow without vascular or intrathecal uptake. At this point, 1 cc of 1% lidocaine solution combined with 3cc or 20mg of dexamethasone and 6mg of betamethasone was injected without incident. The patent tolerated the procedure without signs of symptoms of complications prior to transfer to the recovery area for further monitoring. The patient was then transferred to the recovery area where they were observed for an appropriate period of time after the injection. The patient reported a VAS score of 7 prior to the procedure and a post-procedure VAS of 1. POST OP INSTRUCTIONS The patient was provided a Pain Log to continue to record their response to the target-specific procedure prior to follow-up visit with their referring physician. Additionally, specific post-injection care instructions and a contact number to our office were provided if concerns arise regarding possible complications associated with the procedure are suspected.
== END 2021-11-22 16:05 | disposition home or self-care (01) ==
LOC: RAD 15:03
PROVIDERS: Family Provider Family Medicine; PCP Family Medicine; Referring Provider Physical Medicine & Rehabilitation; Visit Provider Physical Medicine & Rehabilitation
DX: M51.17 Intervertebral disc disorders with radiculopathy, lumbosacral region (principal); M48.07 Spinal stenosis, lumbosacral region
CPT/HCPCS: 62323; 99152; J0702; J1100; J2250; J3490

== ENCOUNTER → 2022-01-24 15:23 | Outpatient (CLI) | payer OTHER, SELFPAY | PROVIDERS: Family Provider Family Medicine; PCP Family Medicine; Referring Provider Internal Medicine; Visit Provider Internal Medicine | DX: Z23 Encounter for immunization (principal) | CPT/HCPCS: 90471; 90686 ==

== ENCOUNTER 2022-02-16 09:01 | Outpatient (CLI) | payer OTHER, SELFPAY ==
[2022-02-16] VITALS (9 sets, daily range): BP systolic 128–171; BP diastolic 58–107; PULSE 76–87; RESP 12–20; TEMP 36.7; O2SAT 95–99
--- NOTE | 2022-02-16 09:02 | DI.RAD.S_ITS ---
PROCEDURE: PAIN L/S FACET INJ/BLK 1ST KURT COMPARISON: None. INDICATIONS: SPONDYLOSIS FINDINGS: Fluoroscopic spot filming was performed to verify placement of spinal needles on both sides at the L5 and S1 levels, as labeled on the films. Appropriate location of the needle tips was confirmed by injection of iodinated contrast. IMPRESSION: Intraprocedural examination demonstrating appropriate positions of the needles. Dictated by: Armand Alexander M.D. on 02/16/2022 at 10:41 Approved by: Armand Alexander M.D. on 02/16/2022 at 10:41
[2022-02-16] MEDS: MIDAZOLAM 2 MG/2 ML VIAL IV (10:19)
[2022-02-16] MEDS: IOPAMIDOL 15 ML VIAL 3 ML INJ (10:23)
[2022-02-16] MEDS: BUPIVACAINE 0.5% MDV 5 ML SUBCUT (10:24)
[2022-02-16] MEDS: LIDOCAINE 1% 20 ML 5 ML INJ (10:25)
--- NOTE | 2022-02-16 10:40 | PM.PROC.IR.1 ---
Date/Time/Diagnoses Date of procedure: 02/16/22 Time of procedure: 10:40 Pre-procedure diagnosis: 1. FACET ARTHROPATHY Post-procedure diagnosis: same Procedure Notes Procedure: 1. BILATERAL- L5 and S1 MB BLOCKS Indications: Demetra Steele is referred by Dr. Beebe for treatment of Bilateral Axial LBP. Physician: Salty Maria Total Fluoroscopy time (seconds): 22 Total sedation minutes: 15 Complications: none Procedure in detail & Post-procedure care: DESCRIPTION OF PROCEDURE Fluoroscopically guided, contrast-controlled bilateral L5 and S1 medial branch blocks with 0.5cc of 0.5% Marcaine. Following review of allergy and review of potential side effects and complications, including, but not necessarily limited to, infection, allergic reaction, local tissue breakdown, nerve injury, paralysis, stroke and possible , the patient indicated that the patient understood and agreed to proceed. An informed consent document was signed by the patient, witnessed by a nurse, and placed in the patient's chart. After review of previous anaesthesic history and IV conscious sedation the patient was deemed safe to proceed with today?s procedure with IV conscious sedation as ASA class II designation. Safety time-out was performed to confirm patient ID, procedure to be performed and site of procedure. IV sedation was accomplished with a combination of 2mg of Versed was administered by the RN after DO order, titrated to patient comfort during the course of the procedure while the patient remained responsive to all verbal commands In the prone position, following sterile prep and drape of the lumbar region, the right L5 and S1 anatomical location of the medial branch of the dorsal ramus was identified fluoroscopically. Subsequently an anesthetic skin wheal using 1% lidocaine solution was initiated at each of the anatomical spots. Subsequently then a 22-gauge 3.5-inch spinal needle was atraumatically introduced and advanced under fluoroscopic guidance at each of the corresponding sites at the right L5 and S1 MB. After negative aspiration, 0.2 cc of Isovue 200 was injected, confirming placement without vascular or intrathecal uptake. Subsequently then 0.5 cc of 0.5% Marcaine solution was injected at each of the corresponding sites at the right L5 and S1 medial branch locations. The identical procedure was replicated on the left. The patient tolerated the procedure well without signs or symptoms of complications. The patient tolerated the procedure well without signs or symptoms of complications prior to transfer to the recovery area continued monitoring without incident. Post-procedure, the patient was monitored initiating provocative activities to measure the amount of relief from block of the facetogenic pain. The patient reported a VAS of 7 prior to the procedure and a post-procedure VAS of 1. It has been a pleasure to assist in the diagnostic and therapeutic care of your patient. POST OP INSTRUCTIONS The patient was provided with a Pain Log to complete over the next several hours and subsequent days prior to the patient's follow up with the ordering physician. If the patient has sharepoint solutions developer relief to the solution applied, then they may be a candidate for medial branch rhizotomy. The patient is aware, was provided, once again, with a Pain Log and will follow up with the referring physician for review and clinical correlation.
== END 2022-02-16 10:57 | disposition home or self-care (01) ==
LOC: RAD 09:02
PROVIDERS: Family Provider Family Medicine; PCP Family Medicine; Referring Provider Physical Medicine & Rehabilitation; Visit Provider Physical Medicine & Rehabilitation
DX: M47.816 Spondylosis without myelopathy or radiculopathy, lumbar region (principal); M47.817 Spondylosis without myelopathy or radiculopathy, lumbosacral region
CPT/HCPCS: 64493; 99152; J2250

== ENCOUNTER 2022-04-18 14:56 | Outpatient (CLI) | payer OTHER, SELFPAY ==
[2022-04-18] VITALS (8 sets, daily range): BP systolic 140–167; BP diastolic 70–100; PULSE 79–94; RESP 16–23; TEMP 36.2; O2SAT 91–96
--- NOTE | 2022-04-18 14:57 | DI.RAD.S_ITS ---
PROCEDURE: PAIN L/S FACET INJ/BLK 1ST KURT COMPARISON: [facility], , PAIN L/S FACET INJ/BLK 1ST KURT, 02/16/2022, 11:21. INDICATIONS: SPONDYLOSIS FINDINGS: Fluoroscopic spot filming was performed to verify placement of spinal needles on both sides at the L5 and S1 levels, as labeled on the films. Appropriate location of the needle tips was confirmed by injection of iodinated contrast. IMPRESSION: Intraprocedural examination demonstrating appropriate positions of the needles. Dictated by: Armand Alexander M.D. on 04/18/2022 at 15:12 Approved by: Armand Alexander M.D. on 04/18/2022 at 15:12
[2022-04-18] MEDS: MIDAZOLAM 2 MG/2 ML VIAL IV (15:18)
[2022-04-18] MEDS: LIDOCAINE 1% (PF) 5 ML INJ (15:21)
[2022-04-18] MEDS: LIDOCAINE 2% INJ SDV 5ML 1 ML INJ (15:21)
[2022-04-18] MEDS: IOPAMIDOL 15 ML VIAL 3 ML INJ (15:21)
--- NOTE | 2022-04-18 15:37 | PM.PROC.IR.1 ---
Date/Time/Diagnoses Date of procedure: 04/18/22 Time of procedure: 15:37 Pre-procedure diagnosis: 1. FACET ARTHROPATHY Post-procedure diagnosis: same Procedure Notes Procedure: 1. BILATERAL- L5 and S1 MB BLOCKS Indications: Demetra Steele is referred by Dr. Beebe for treatment of Bilateral Axial LBP. Physician: Salty Maria Total Fluoroscopy time (seconds): 13 Total sedation minutes: 15 Complications: none Procedure in detail & Post-procedure care: DESCRIPTION OF PROCEDURE Fluoroscopically guided, contrast-controlled bilateral L5 and S1 medial branch blocks with 0.5cc of 2% Lidocaine. Following review of allergy and review of potential side effects and complications, including, but not necessarily limited to, infection, allergic reaction, local tissue breakdown, nerve injury, paralysis, stroke and possible , the patient indicated that the patient understood and agreed to proceed. An informed consent document was signed by the patient, witnessed by a nurse, and placed in the patient's chart. After review of previous anaesthesic history and IV conscious sedation the patient was deemed safe to proceed with today?s procedure with IV conscious sedation as ASA class II designation. Safety time-out was performed to confirm patient ID, procedure to be performed and site of procedure. IV sedation was accomplished with a combination of 2mg of Versed and 50mcg of Fentanyl was administered by the RN after DO order, titrated to patient comfort during the course of the procedure while the patient remained responsive to all verbal commands In the prone position, following sterile prep and drape of the lumbar region, the right L5 and S1 anatomical location of the medial branch of the dorsal ramus was identified fluoroscopically. Subsequently an anesthetic skin wheal using 1% lidocaine solution was initiated at each of the anatomical spots. Subsequently then a 22-gauge 3.5-inch spinal needle was atraumatically introduced and advanced under fluoroscopic guidance at each of the corresponding sites at the right L5 and S1 MB. After negative aspiration, 0.2 cc of Isovue 200 was injected, confirming placement without vascular or intrathecal uptake. Subsequently then 0.5 cc of 2% Lidocaine solution was injected at each of the corresponding sites at the right L5 and S1 medial branch locations. The identical procedure was replicated on the left. The patient tolerated the procedure well without signs or symptoms of complications. The patient tolerated the procedure well without signs or symptoms of complications prior to transfer to the recovery area continued monitoring without incident. Post-procedure, the patient was monitored initiating provocative activities to measure the amount of relief from block of the facetogenic pain. The patient reported a VAS of 8 prior to the procedure and a post-procedure VAS of 1. It has been a pleasure to assist in the diagnostic and therapeutic care of your patient. POST OP INSTRUCTIONS The patient was provided with a Pain Log to complete over the next several hours and subsequent days prior to the patient's follow up with the ordering physician. If the patient has fashion photographer relief to the solution applied, then they may be a candidate for medial branch rhizotomy. The patient is aware, was provided, once again, with a Pain Log and will follow up with the referring physician for review and clinical correlation.
== END 2022-04-18 15:54 | disposition home or self-care (01) ==
PROVIDERS: Family Provider Family Medicine; PCP Family Medicine; Referring Provider Physical Medicine & Rehabilitation; Visit Provider Physical Medicine & Rehabilitation
DX: M47.817 Spondylosis without myelopathy or radiculopathy, lumbosacral region (principal)
CPT/HCPCS: 64493; 99152; J2250

== ENCOUNTER → 2022-05-25 12:17 | Outpatient (CLI) | payer OTHER, SELFPAY ==
--- NOTE | 2022-05-25 12:20 | DI.RAD.S_ITS ---
PROCEDURE: XR SHOULDER LT MIN 2V INDICATIONS: Left shoulder pain - AC joint and deltoid area TECHNIQUE: 3 views of the shoulder were acquired. COMPARISON: None. FINDINGS: Bones: No fractures or dislocations. No suspicious bony lesions. Mild osteoarthritic changes are present in acromioclavicular and glenohumeral joints. Visualized ribs appear intact. Soft tissues: No suspicious soft tissue calcifications. IMPRESSION: Mild osteoarthritis. Dictated by: Reji Duarte M.D. on 05/25/2022 at 17:07 Approved by: Reji Duarte M.D. on 05/25/2022 at 17:07
== END ==
PROVIDERS: Family Provider Family Medicine; PCP Family Medicine; Referring Provider Physician Assistant; Visit Provider Physician Assistant
DX: M25.512 Pain in left shoulder (principal); M19.012 Primary osteoarthritis, left shoulder
CPT/HCPCS: 73030

== ENCOUNTER → 2022-05-29 14:22 | Outpatient (CLI) | payer OTHER, SELFPAY ==
--- NOTE | 2022-05-29 14:24 | DI.US.S_ITS ---
LIMITED ULTRASOUND OF RIGHT BREAST: 05/29/2022 CLINICAL: Focal right breast pain. Comparison is made to exams dated: 12/24/2018 breast MRI and 01/13/2016 breast MRI - [facility]. Real-time ultrasound of the right breast 12 o'clock region was performed. Jaramillo scale images of the real-time examination were reviewed. No significant abnormalities were seen sonographically in the right breast. IMPRESSION: NEGATIVE There is no sonographic evidence of malignancy. There is no abnormality seen in the right breast to correspond with the pain. Patient says that the pain is deep to her implant. This area is not well evaluated with ultrasound due to posterior shadowing related to the implant. Recommend clinical followup. Breast MRI could be performed for further evaluation if indicated clinically. This exam was interpreted at Station ID: [id number]. Electronically Signed By: Miki Mckenzie M.D. ar/:05/29/2022 15:32:55 letter sent: Clinical Evaluation Ultrasound BI-RADS: 1 Negative
== END ==
PROVIDERS: Family Provider Family Medicine; PCP Family Medicine; Referring Provider Physician Assistant; Visit Provider Physician Assistant
DX: N64.4 Mastodynia (principal); Z85.3 Personal history of malignant neoplasm of breast
CPT/HCPCS: 76642

== ENCOUNTER → 2022-05-30 08:05 | Outpatient (CLI) | payer OTHER, SELFPAY ==
[2022-05-30 08:49] LABS: Add Manual Diff / Slide Review NO; Basophils Absolute Auto 0 /uL (0-100); Basophils Percent Auto 0.9 % (0-2); Eosinophils Absolute Auto 100 /uL (0-450); Eosinophils Percent Auto 2.8 % (2-4); Hematocrit 43.8 % (36-46); Hemoglobin 15.1 g/dL (12.0-16.0); Lymphocytes Absolute Auto 1600 /uL (1100-4500); Lymphocytes Percent Auto 33.7 % (25-40); Mean Corpuscular HGB Conc 34.4 % (30-36); Mean Corpuscular Hemoglobin 30.7 PG (26-34); Monocytes Absolute Auto 400 /uL (0-900); Monocytes Percent Auto 7.6 % (3-14); Neutrophils Absolute Auto 2600 /uL (1500-7000); Platelet Count 239 X10^3/uL (150-400); Red Blood Cell Count 4.92 X10^6/uL (4.0-5.2); Red Cell Distribution Width 14.3 % (11.6-14.8); White Blood Cell Count 4.7 X10^3/uL (4.5-11.0)
[2022-05-30 08:58] LABS: Alanine Aminotransferase 24 IU/L (<35); Albumin Globulin Ratio 1.2 (1.0-2.8); Alkaline Phosphatase 122 U/L (38-126); Aspartate Aminotransferase 26 IU/L (14-36); BUN Creatinine Ratio 19.1 (6-22); Bilirubin Total 0.6 mg/dL (0.2-1.3); Blood Urea Nitrogen 13 mg/dL (7-17); Calcium 8.8 mg/dL (8.4-10.2); Carbon Dioxide 26 mmol/L (22-32); Chloride 105 mmol/L (98-107); Cholesterol 189 mg/dL (140-199); Estimated Glomerular Filt Rate > 60 mL/min (>60); Globulin 3.4 g/dL (1.7-4.1); Glucose 101 mg/dL (80-110); HDL Cholesterol 57 mg/dL (40-60); HEMOLYSIS 16 (0-50); LDL Cholesterol Calculated 112 mg/dL (<100); Potassium 3.9 mmol/L (3.4-5.1); Sodium 140 mmol/L (137-145); Total Protein 7.4 g/dL (6.3-8.2); Triglycerides 99 mg/dL (35-150)
[2022-05-30 09:26] LABS: Carcinoembryonic Antigen 0.5 ng/mL (0.1-3.0)
[2022-05-31 23:52] LABS: CA 15-3 16.8 U/mL (0.0-25.0)
== END ==
PROVIDERS: Family Provider Family Medicine; PCP Family Medicine; Referring Provider Physician Assistant; Visit Provider Physician Assistant
DX: G43.909 Migraine, unspecified, not intractable, without status migrainosus (principal); G62.9 Polyneuropathy, unspecified; Z13.0 Encounter for screening for diseases of the blood and blood-forming organs and certain disorders involving the immune mechanism; Z13.1 Encounter for screening for diabetes mellitus; Z85.3 Personal history of malignant neoplasm of breast; Z13.220 Encounter for screening for lipoid disorders; Z13.6 Encounter for screening for cardiovascular disorders
CPT/HCPCS: 36415; 80053; 80061; 82378; 85025; 86300

== ENCOUNTER 2022-07-13 10:52 | Outpatient (CLI) | payer OTHER, SELFPAY ==
[2022-07-13] VITALS (13 sets, daily range): BP systolic 131–195; BP diastolic 74–100; PULSE 72–80; RESP 15–22; O2SAT 94–96
--- NOTE | 2022-07-13 10:57 | DI.RAD.S_ITS ---
PROCEDURE: PAIN L/S MED/LAT N RFA BILAT INDICATIONS: SPONDYLOSIS COMPARISON: [facility], , PAIN L/S FACET INJ/BLK 1ST KURT, 04/18/2022, 16:21. FINDINGS: Fluoroscopic spot filming was performed to verify placement of spinal needles on both sides at the L5 and S1 levels, as labeled on the films. IMPRESSION: Images during rhizotomy within normal limits. Dictated by: Armand Alexander M.D. on 07/13/2022 at 13:22 Approved by: Armand Alexander M.D. on 07/13/2022 at 13:22
[2022-07-13] MEDS: MIDAZOLAM 2 MG/2 ML VIAL 3 MG IV (12:07)
[2022-07-13] MEDS: LIDOCAINE 1% (PF) 5 ML INJ (12:09)
[2022-07-13] MEDS: BUPIVACAINE 0.5% (PF) 30 ML VIAL 5 ML INJ (12:09)
[2022-07-13] MEDS: IOPAMIDOL 15 ML VIAL 3 ML INJ (12:10)
--- NOTE | 2022-07-13 12:22 | P.PCN_ITS ---
Date/Time/Diagnoses Date of procedure: 07/13/22 Time of procedure: 12:22 Pre-procedure diagnosis: 1. RECALCITRANT FACET ARTHROPATHY Post-procedure diagnosis: same Procedure Notes Procedure: 1. BILATERAL L5 MEDIAL BRANCH RADIOFREQUENCY NEUROTOMY AND S1 DORSAL RAMUS BRANCH RADIOFREQUENCY NEUROTOMY Indications: Demetra Steele is referred by Dr. Beebe for treatment of facet arthropathy. Physician: Salty Maria Total Fluoroscopy time (seconds): 26 Total sedation minutes: 33 Complications: none Procedure in detail & Post-procedure care: DESCRIPTION OF PROCEDURE Bilateral L5 medial branch radiofrequency neurotomy and bilateral S1 dorsal ramus radiofrequency neurotomy under fluoroscopy with conscious sedation. The patient is well known to this clinic having undergone previous facet injections with good but temporary relief. The patient has experienced appropriate, concordant relief with previous facet and median branch blocks but the patient's pain has been recalcitrant to further conservative measures. Therefore, based upon the patient's relief and persistent symptoms, the patient is considered an appropriate candidate for facet rhizotomy. All of the patient's questions regarding the risks versus benefits of the procedure, including, but not limited to, bleeding, infection, temporary as well as lasting nerve injury, paralysis, stroke, and , as well treatment alternatives were answered to satisfaction. After obtaining informed consent, denial of pertinent drug allergies, as well as being made aware of the potential risks of bleeding, infection, spinal cord trauma, paralysis, temporary and permanent nerve damage, seizure, stroke, and possible , the patient was brought to the fluoroscopy suite and positioned prone on the fluoroscopy table. The lumbar region was prepped with Betadine and covered with a fenestrated drape in the usual sterile fashion. Appropriate monitors applied including pulse oximeter, pulse, and blood pressure for regular monitoring throughout the procedure. After review of previous anaesthesic history and IV conscious sedation the patient was deemed safe to proceed with today's procedure with IV conscious sedation as ASA class II designation. Safety time-out was performed to confirm patient ID, procedure to be performed and site of procedure. IV sedation was accomplished with a combination of 3mg of Versed administered by the RN after DO order, titrated to patient comfort during the course of the procedure while the patient remained responsive to all verbal commands. After local infiltration using 1% lidocaine, under fluoroscopic guidance, a 10- cm RF insulated needle with a 10-mm active tip was positioned parallel to the junction of the right sacral ala and the superior articulating process where the S1 dorsal ramus resides. Needle placement was confirmed with motor stimulation of .5v on the right which produced local stimulation without radicular component. The stimulation was then increased to 2v with, once again, only local multifidus stimulation without radicular component. The needle was then removed and the identical procedure was performed along the length of the right L5 medial branch with motor stimulation at .7v on the right. The medial branches were then anesthetised with 0.5% Marcaine. This was then followed by two discreet lesions performed at 80 degrees Celsius for 90 seconds each. The identical procedure was repeated on the left. The patient tolerated the procedure well without signs or symptoms of complications prior to transfer to the recovery area continued monitoring without incident. The patient was then transferred to the recovery area where they were observed for an appropriate period of time after the injection. The patient reported a VAS score of 7 prior to the procedure and a post-procedure VAS of 0. POST OP INSTRUCTIONS The patient was provided a Pain Log to continue to record the patient's response to the target-specific procedure prior to the patient's follow-up visit with the referring physician. Additionally, specific post-injection care instructions and a contact number to our office were provided if concerns arise regarding possible complications associated with the procedure are suspected.
== END 2022-07-13 12:42 | disposition home or self-care (01) ==
LOC: RAD 10:54
PROVIDERS: Family Provider Family Medicine; PCP Family Medicine; Referring Provider Physical Medicine & Rehabilitation; Visit Provider Physical Medicine & Rehabilitation
DX: M47.817 Spondylosis without myelopathy or radiculopathy, lumbosacral region (principal)
CPT/HCPCS: 64635; 99152; 99153; J2250

== ENCOUNTER 2023-01-09 07:24 | Outpatient (CLI) | payer OTHER, SELFPAY ==
[2023-01-09] VITALS (9 sets, daily range): BP systolic 149–181; BP diastolic 82–99; PULSE 83–94; RESP 18–23; TEMP 36.4; O2SAT 92–96
--- NOTE | 2023-01-09 07:26 | DI.RAD.S_ITS ---
PROCEDURE: PAIN SI JOINT INJECTION INDICATIONS: SACROILIAC DISORDER COMPARISON: [facility], XA, PAIN L/S MED/LAT N RFA BILAT, 07/13/2022, 11:46. [facility], MR, MR LUMBAR SPINE WO CON, 10/07/2021, 7:44. FINDINGS: On these intraprocedural images, there is a spinal needle seen overlying the inferior aspect of the left sacroiliac joint. Appropriate position of the tip of the needle was confirmed by injection of a small amount of iodinated contrast. IMPRESSION: Successful sacroiliac joint injection. Dictated by: Armand Alexander M.D. on 01/09/2023 at 17:12 Approved by: Armand Alexander M.D. on 01/09/2023 at 17:13
[2023-01-09] MEDS: MIDAZOLAM 2 MG/2 ML VIAL IV (08:08)
[2023-01-09] MEDS: iopamidoL 15 ML VIAL 3 ML INJ (08:14)
[2023-01-09] MEDS: BUPIVACAINE 0.5% (PF) 10 ML VIAL 2 ML INJ (08:14)
[2023-01-09] MEDS: BETAMETHASONE 30 MG/5 ML MDV 6 MG INJ (08:14)
--- NOTE | 2023-01-09 08:26 | PM.PROC.IR.1 ---
Date/Time/Diagnoses Date of procedure: 01/09/23 Time of procedure: 08:26 Pre-procedure diagnosis: Sacroiliac Joint Pain/DJD Post-procedure diagnosis: same Procedure Notes Procedure: Fluoroscopically guided contrast controlled left sacroiliac joint injection Indications: Demetra Steele is referred by PAC Misael for treatment of left sacroiliac joint DJD Physician: Salty Maria Total Fluoroscopy time (seconds): 13 Total sedation minutes: 12 Complications: none Procedure in detail & Post-procedure care: DESCRIPTION OF PROCEDURE Fluoroscopic guided, contrast controlled left sacroiliac joint injection Following review of allergies and review of potential side effects and complications, including, but not necessarily limited to, infection, allergic reaction, local tissue breakdown, temporary as well as permanent nerve injury, paralysis, stroke and possible , the patient indicated that they understood and agreed to proceed. An informed consent was signed by the patient, witnessed by a nurse, and placed in the patient's chart. Additionally, other treatment options including modalities, medications, and physical therapy were reviewed with the patient. After review of previous anaesthesic history and IV conscious sedation the patient was deemed safe to proceed with today?s procedure with IV conscious sedation as ASA class II designation. Safety time-out was performed to confirm patient ID, procedure to be performed and site of procedure. IV sedation was accomplished with a combination of 2mg of Versed administered by the RN after DO order, titrated to patient comfort during the course of the procedure while the patient remained responsive to all verbal commands. In the prone position following sterile prep and drape of the pelvic region, the hyper lucency on in the inferior aspect of the left sacroiliac joint was identified fluoroscopically the skin was anesthetized be a 25 gauge 1 eventual with approximately 2cc of 1% lidocaine solution. At this point, a 22 gauge 3inch spinal needle was atraumatically introduced and advanced under fluoroscopic guidance into the inferior aspect of the left sacroiliac joint. Following negative aspiration, approximately 0.3cc of Isovue-300 was injected confirming intra-articular placement without vascular uptake. Radiographic data, including multiple fluoroscopic views of the pelvis, reveals a spinal needle in the left sacroiliac joint hyper lucent zone. Subsequent view show flow contrast tear superiorly and inferiorly within the joint capsule without vascular intrathecal uptake. At this point a total of 1cc or 0.5% Marcaine was combined with 1cc of 6mg of betamethasone was injected without incident. The patient tolerated the procedure well without signs or symptoms of complications prior to transfer to the recovery area for further monitoring. The patient was then transferred to the recovery area with a bur observed for an appropriate time after the injection. The patient reverted a vas score of 7 prior to the procedure and postprocedure vas of 1. POSTOP INSTRUCTIONS The patient was provided with a pain like to continue to record the patient's response to the target specific procedure prior to the patient's follow-up visit with the referring physician. Additionally, specific post injection care instructions and a contact number to our office were provided if concerns arise regarding the possible complications associated with procedure are suspected.
== END 2023-01-09 08:44 | disposition home or self-care (01) ==
LOC: RAD 07:25
PROVIDERS: Family Provider Family Medicine; PCP Physician Assistant; Referring Provider Physical Medicine & Rehabilitation; Visit Provider Physical Medicine & Rehabilitation
DX: M53.3 Sacrococcygeal disorders, not elsewhere classified (principal)
CPT/HCPCS: 27096; 99152; J0702; J2250

== ENCOUNTER → 2023-01-26 | Outpatient (CLI) | payer OTHER, SELFPAY | PROVIDERS: Family Provider Family Medicine; PCP Physician Assistant; Referring Provider Family Medicine; Visit Provider Family Medicine | DX: Z23 Encounter for immunization (principal) | CPT/HCPCS: 90471; 90686 ==

== ENCOUNTER 2023-03-20 09:07 | Outpatient (CLI) | payer OTHER, SELFPAY ==
[2023-03-20] VITALS (8 sets, daily range): BP systolic 166–189; BP diastolic 90–106; PULSE 80–96; RESP 15–21; TEMP 36.6; O2SAT 94–97
--- NOTE | 2023-03-20 09:45 | DI.RAD.S_ITS ---
PROCEDURE: PAIN L INTERLAMINAR/CAUDAL INJ INDICATIONS: LOWER EXTREMITY PARASTHESIS COMPARISON: [facility], XA, PAIN L INTERLAMINAR/CAUDAL INJ, 11/22/2021, 15:39. FINDINGS: Fluoroscopic spot filming was performed to verify placement of spinal needles at the L5-S1 level(s), as labeled on the films. Appropriate location(s) of the needle tip(s) was confirmed by injection of iodinated contrast. IMPRESSION: Intraoperative guidance provided. Dictated by: Idris Park M.D. on 03/20/2023 at 12:37 Approved by: Idris Park M.D. on 03/20/2023 at 12:37
[2023-03-20] MEDS: MIDAZOLAM 2 MG/2 ML VIAL IV (10:01)
[2023-03-20] MEDS: BUPIVACAINE 0.25% (PF) VIAL 2 ML INJ (10:06)
[2023-03-20] MEDS: iopamidoL 15 ML VIAL 3 ML INJ (10:07)
[2023-03-20] MEDS: BETAMETHASONE 30 MG/5 ML MDV 6 MG INJ (10:07)
[2023-03-20] MEDS: DEXAMETHASONE 10 MG/ML VIAL INJ (10:07)
--- NOTE | 2023-03-20 10:16 | P.PCN_ITS ---
Date/Time/Diagnoses Date of procedure: 03/20/23 Time of procedure: 10:16 Pre-procedure diagnosis: 1. HNP WITH RADICULAR FEATURES, 2. MULTILEVEL CENTRAL STENOSIS, Post-procedure diagnosis: same Procedure Notes Procedure: 1. FLUOROSCOPICALLY GUIDED CONTRAST CONTROLLED INTERLAMINAR EPIDURAL STEROID INJECTION - L5/S1 Indications: Demetra Steele is referred by NATHANIEL Douglas for treatment of Bilateral Foraminal Stenosis L>R LE symptoms. Physician: Salty Maria Total Fluoroscopy time (seconds): 7 Total sedation minutes: 11 Complications: none Procedure in detail & Post-procedure care: FINDINGS Multilevel Central Spinal Stenosis with Nerve Root Compression DESCRIPTION OF PROCEDURE Fluoroscopically guided, contrast-controlled L5/S1 translaminar epidural steroid injection. Following review of allergy and review of potential side effects and complications, including, but not necessarily limited to, infection, allergic reaction, local tissue breakdown, temporary as well as permanent nerve injury, paralysis, stroke and possible , the patient indicated that the patient understood and agreed to proceed. An informed consent document was signed by the patient, witnessed by a nurse, and placed in the patient's chart. Additionally, other treatment options including modalities, medications, and physical therapy were reviewed with the patient. After review of previous anaesthesic history and IV conscious sedation the patient was deemed safe to proceed with today?s procedure with IV conscious sedation as ASA class II designation. Safety time-out was performed to confirm patient ID, procedure to be performed and site of procedure. IV sedation was accomplished with a combination of 2mg of Versed administered by the RN after DO order, titrated to patient comfort during the course of the procedure while the patient remained responsive to all verbal commands. In the prone position, following sterile prep and drape of the lumbar region, the L5/S1 translaminar space was identified fluoroscopically. The skin was anesthetized via a 25-gauge, 1.5-inch needle with 1% lidocaine solution. At this point, a 22-gauge short bevel spinal needle was atraumatically introduced and advanced under fluoroscopic guidance into the region of the L5/S1 translaminar space. Depth was confirmed on lateral view. Radiological data, including multiple fluoroscopic views of the lumbar spine, reveal a spinal needle at the L5/S1 translaminar space. Lateral views then show placement of the needle in the epidural space. Subsequent views show contrast material flowing superiorly and inferiorly in the epidural space. No vascular or intrathecal uptake is observed. At this point, using loss of resistance technique with saline and air, the epidural space was entered. This was confirmed following negative aspiration with injection of approximately 1.5cc of Isovue 200, showing excellent epidural flow without vascular or intrathecal uptake. At this point, 1 cc of 1% lidoc dayna solution combined with 2cc or 10mg of dexamethasone and 6mg of betamethasone was injected without incident. The patent tolerated the procedure without signs of symptoms of complications prior to transfer to the recovery area for further monitoring. The patient was then transferred to the recovery area where they were observed for an appropriate period of time after the injection. The patient reported a VAS score of 6 prior to the procedure and a post-procedure VAS of 0. POST OP INSTRUCTIONS The patient was provided a Pain Log to continue to record their response to the target-specific procedure prior to follow-up visit with their referring physician. Additionally, specific post-injection care instructions and a contact number to our office were provided if concerns arise regarding possible complications associated with the procedure are suspected.
== END 2023-03-20 10:32 | disposition home or self-care (01) ==
LOC: RAD 09:08
PROVIDERS: Family Provider Family Medicine; PCP Physician Assistant; Referring Provider Physical Medicine & Rehabilitation; Visit Provider Physical Medicine & Rehabilitation
DX: M51.17 Intervertebral disc disorders with radiculopathy, lumbosacral region (principal); M48.07 Spinal stenosis, lumbosacral region
CPT/HCPCS: 62323; 99152; J0702; J1100; J2250; J3490

== ENCOUNTER 2023-03-23 09:01 | Emergency (ER) | payer OTHER, SELFPAY ==
[2023-03-23] VITALS (14 sets, daily range): BP systolic 175–228; BP diastolic 75–118; PULSE 68–85; RESP 13–25; TEMP 36.6; O2SAT 85–99; BMI 41.1
--- NOTE | 2023-03-23 09:15 | DI.RAD.S_ITS ---
PROCEDURE: XR CHEST 1V INDICATIONS: chest pain TECHNIQUE: One view of the chest was acquired. COMPARISON: [facility], [place], CHEST 2 VIEW, 08/23/2016, 14:04. [facility], [place], XR CHEST 1V, 07/08/2020, 11:47. FINDINGS: Surgical changes and devices: Left shoulder anchors. Lungs and pleura: Lungs are clear. No pleural effusions or pneumothorax. Mediastinum: Mediastinal contours appear normal. Heart size is normal. Bones and chest wall: No suspicious bony lesions. Overlying soft tissues appear unremarkable. IMPRESSION: No acute cardiopulmonary abnormality is seen. Dictated by: Idris Park M.D. on 03/23/2023 at 9:30 Approved by: Idris Park M.D. on 03/23/2023 at 9:31
[2023-03-23 09:21] LABS: Add Manual Diff / Slide Review NO; Basophils Absolute Auto 100 /uL (0-100); Eosinophils Absolute Auto 100 /uL (0-450); Eosinophils Percent Auto 0.7 % (2-4); Hematocrit 43.5 % (36-46); Lymphocytes Absolute Auto 3100 /uL (1100-4500); Lymphocytes Percent Auto 34.3 % (25-40); Mean Corpuscular HGB Conc 34.4 % (30-36); Mean Corpuscular Hemoglobin 30.5 PG (26-34); Mean Corpuscular Volume 88.6 fL (80-100); Monocytes Absolute Auto 900 /uL (0-900); Neutrophils Absolute Auto 5000 /uL (1500-7000); Platelet Count 287 X10^3/uL (150-400); Red Blood Cell Count 4.91 X10^6/uL (4.0-5.2); White Blood Cell Count 9.2 X10^3/uL (4.5-11.0)
[2023-03-23 09:30] LABS: INR 1.1 (0.9-1.3); Prothrombin Time 12.2 SECONDS (9.4-12.5)
[2023-03-23 09:32] LABS: PTT Partial Thromboplastin Tim 28 SECONDS (25.1-36.5)
[2023-03-23 09:35] LABS: Alanine Aminotransferase 18 IU/L (<35); Albumin 4.2 g/dL (3.5-5.0); Albumin Globulin Ratio 1.3 (1.0-2.8); Alkaline Phosphatase 121 U/L (38-126); Aspartate Aminotransferase 20 IU/L (14-36); BUN Creatinine Ratio 18.9 (6-22); Bilirubin Total 0.5 mg/dL (0.2-1.3); Blood Urea Nitrogen 14 mg/dL (7-17); Calcium 9.6 mg/dL (8.4-10.2); Carbon Dioxide 28 mmol/L (22-32); Chloride 103 mmol/L (98-107); Creatine Kinase < 20 U/L (30-135); Estimated Glomerular Filt Rate > 60 mL/min (>60); Globulin 3.3 g/dL (1.7-4.1); Glucose 93 mg/dL (80-110); HEMOLYSIS < 15 (0-50); Lipase 78 U/L (23-300); Magnesium 2.3 mg/dL (1.6-2.3); Potassium 3.4 mmol/L (3.4-5.1); Sodium 140 mmol/L (137-145); Total Protein 7.5 g/dL (6.3-8.2)
[2023-03-23 09:47] LABS: Troponin I < 0.012 ng/mL (0.01-0.034)
--- NOTE | 2023-03-23 09:57 | ED.GENADULT ---
HPI - General Adult General Chief complaint: Hypertension Stated complaint: high B/P T-3/ not feeling good Time Seen by Provider: 03/23/23 09:23 Source: patient Mode of arrival: Ambulatory History of Present Illness HPI narrative: 62-year-old female with history of chronic back pain, prior history of breast cancer with bilateral mastectomy, NURYS who presents with complaint of hypertension for the past week and headache. Patient states she went to Dr. Maria's office for a steroid injection in her left lower lumbar region on Sunday 5 days ago. Patient states her blood pressure was elevated before in the 190 range. It has been consistently elevated this week up in the 180 range since then she has checked it a couple times. She states she is had a headache for the past several days. She had what felt like a steroid flare got flushed the day after the injection. She denies any fevers cold, cough or congestive symptoms. No acute vision changes. No chest pain or shortness breath. No nausea, no vomiting. No syncope. No numbness, tingling or weakness. States she has had the injections in the past has not had this sort of issue. She presents today because she would returned to work for the 1st day they told her she did not look well. She did try Advil for her headache which was not helpful. She states no known history of hypertension but is often elevated when she sees Dr. Ramírez. Not typically her regular physician. She is on Celebrex, gabapentin, hydroxyzine and montelukast. She notes she is had prior bilateral mastectomies for breast cancer remotely, prior back surgery in 2009. Allergic to sulfa and chlorthalidone. Tobacco, occasional alcohol, no recreational drugs. Related Data Home Medications Medication Instructions Recorded Confirmed Respironics Dreamstation CPAP #1 ea 10/24/18 03/14/23 fluticasone propionate 50 1 spray intranasal DAILY PRN 01/14/20 03/14/23 mcg/actuation nasal Allergies spray,suspension (Flonase Allergy Relief) Previous Rx's Medication Instructions Recorded celecoxib 200 mg capsule (Celebrex) 200 mg PO DAILY #90 caps 05/18/22 acyclovir 400 mg tablet See Rx Instructions .Route 06/05/22 .COMPLEX #30 tabs montelukast 10 mg tablet 10 mg PO DAILY #90 tabs 06/05/22 (Singulair) omeprazole 40 mg capsule,delayed See Rx Instructions .Route 06/05/22 release .COMPLEX #180 caps venlafaxine 75 mg capsule,extended See Rx Instructions .Route 06/05/22 release 24 hr .COMPLEX #270 caps tramadol 50 mg tablet 50 mg PO BID PRN pain #42 tabs 06/26/22 hydroxyzine HCl 25 mg tablet See Rx Instructions .Route 12/13/22 .COMPLEX #180 tabs diazepam 10 mg tablet (Valium) 10 mg PO .COMPLEX PRN 1-2 prior to 03/14/23 MRI and for possible steroid flare #10 tabs gabapentin 300 mg capsule 300 mg PO .COMPLEX #90 caps 03/14/23 lisinopril 10 mg tablet 10 mg PO DAILY #14 tabs 03/23/23 Allergies Allergy/AdvReac Type Severity Reaction Status Date / Time Sulfa (Sulfonamide Allergy Verified 03/23/23 09:10 Antibiotics) chlorthalidone AdvReac Mild bloating,, Verified 03/23/23 09:10 [CHLORTHALIDONE] urinary symptoms Review of Systems Review of Systems ROS Unobtainable: All systems reviewed & are unremarkable except as noted in HPI and below Patient History Medical History Sacral dysfunction Herniated nucleus pulposus, L5-S1, left Facet arthropathy, lumbar Morbid obesity with BMI of 40.0-44.9, adult Low back pain Obstructive sleep apnea of adult Hayfever Depression Migraines Chronic headaches Chicken pox (~1966) Recurrent sinusitis BRCA gene mutation positive in female (2009) GERD (gastroesophageal reflux disease) Gastric ulcer (2008) Colitis (2009) Breast cancer (2009) Hot flashes due to menopause (05/22/16) Surgical History Hx of cervical discectomy Anesthesia History of back surgery (07/2009) Status post cholecystectomy (2015) History of total mastectomy (07/2011) History of total mastectomy (12/2010) Status post hysterectomy (12/2002) Status post tubal ligation (1980) Family History Child Age: 43 Bipolar 1 disorder Essential hypertension Child Age: 41 Essential hypertension Father Age: 86 Hypertension Dementia Mother Age: 86 Hypertension Grandfather No problems noted. Grandmother No problems noted. Sister Breast cancer Sister No problems noted. Sister No problems noted. Social History marital status: household members: spouse lives independently: Yes occupational status: employed Smoking Status: Never smoker alcohol intake: current substance use type: does not use Smoking Status: Never smoker alcohol intake frequency: holidays/special occasions only Substance Use Type: does not use Exam Narrative Exam Narrative: GEN: well nourished, well appearing female, alert and oriented x 3, patient appears to be in mild distress. HEENT: Atraumatic, pupils are equal round reactive to light, extraocular movements are intact, nares are clear, there is no conjunctival pallor. No facial droop. HEART: Regular rate and rhythm without murmur, clicks, rubs. LUNGS:Lungs clear to auscultation, no wheezes, rales, crackles, chest moves symmetrically ABD:bowel sounds normal, soft, non-tender, no guarding, rebound, rigidity, no masses noted, no hepatosplenomegaly :No CVA tenderness MSCL: Non-tender, no muscle atrophy, muscles strength 5/5 upper and lower extremities, full range of motion, normal gait NEURO:CN 2-12 intact, sensation normal. SKIN: No rash, erythema or other skin changes Initial Vital Signs Initial Vital Signs: Vital Signs Temperature 97.8 F 03/23/23 09:03 Pulse Rate 77 03/23/23 09:03 Respiratory Rate 14 03/23/23 09:03 Blood Pressure 196/94 H 03/23/23 09:03 Pulse Oximetry 96 03/23/23 09:03 Oxygen Delivery Method Room Air 03/23/23 09:03 Course Orders Ordered: ED Orders 03/23/23 09:10 Complete Blood Count AUTO DIFF Stat Comprehensive Metabolic Panel Stat Lipase Stat Magnesium Stat PTT Partial Thromboplastin Filiberto Stat Prothrombin Time INR Stat Troponin & CK Cardiac Panel Stat 03/23/23 09:15 XR chest 1V Stat 03/23/23 09:18 EKG-12 Lead Stat 03/23/23 10:09 CT head/brain wo con Stat Discontinued Medications Acetaminophen (Acetaminophen 325 Mg Tablet) 975 mg PO NOW ONE Stop: 03/23/23 10:13 Last Admin: 03/23/23 10:33 Dose: 975 mg Documented By: DAWSON Lisinopril (Lisinopril 10 Mg Tablet) 10 mg PO NOW ONE Stop: 03/23/23 11:21 Last Admin: 03/23/23 11:48 Dose: 10 mg Documented By: Vital Signs Vital signs: Vital Signs - 8 hr 03/23/23 10:21 03/23/23 10:21 03/23/23 10:30 Pulse Rate 69 68 Respiratory Rate 18 13 Blood Pressure 190/86 H Pulse Oximetry 95 97 03/23/23 10:30 03/23/23 11:00 03/23/23 11:01 Pulse Rate 72 76 Respiratory Rate 13 19 Blood Pressure 183/75 H Pulse Oximetry 94 85 L 03/23/23 11:01 03/23/23 11:30 03/23/23 11:31 Pulse Rate 71 Respiratory Rate 14 Blood Pressure 175/101 H 177/85 H Pulse Oximetry 98 03/23/23 11:31 03/23/23 11:48 Pulse Rate 72 72 Respiratory Rate 21 Blood Pressure 177/85 H Pulse Oximetry 99 Medical Decision Making Lab Data 03/23/23 09:10 03/23/23 09:10 Labs: Lab Results 03/23/23 Range/Units 09:10 WBC 9.2 (4.5-11.0) X10^3/uL RBC 4.91 (4.0-5.2) X10^6/uL Hgb 15.0 (12.0-16.0) g/dL Hct 43.5 (36-46) % MCV 88.6 (80-100) fL MCH 30.5 (26-34) PG MCHC 34.4 (30-36) % RDW 14.0 (11.6-14.8) % Plt Count 287 (150-400) X10^3/uL Neut % (Auto) 54.0 (50-75) % Lymph % (Auto) 34.3 (25-40) % Winn % (Auto) 10.0 (3-14) % Eos % (Auto) 0.7 L (2-4) % Baso % (Auto) 1.0 (0-2) % Neut # (Auto) 5000 (4403-9529) /uL Lymph # (Auto) 3100 (1710-1079) /uL Winn # (Auto) 900 (0-900) /uL Eos # (Auto) 100 (0-450) /uL Baso # (Auto) 100 (0-100) /uL PT 12.2 (9.4-12.5) SECONDS INR 1.1 (0.9-1.3) APTT 28 (25.1-36.5) SECONDS Sodium 140 (137-145) mmol/L Potassium 3.4 (3.4-5.1) mmol/L Chloride 103 (98-107) mmol/L Carbon Dioxide 28 (22-32) mmol/L BUN 14 (7-17) mg/dL Creatinine 0.74 (0.52-1.04) mg/dL Estimated GFR > 60 (>60) mL/min BUN/Creatinine Ratio 18.9 (6-22) Glucose 93 (80-110) mg/dL Calcium 9.6 (8.4-10.2) mg/dL Magnesium 2.3 (1.6-2.3) mg/dL Total Bilirubin 0.5 (0.2-1.3) mg/dL AST 20 (14-36) IU/L ALT 18 (<35) IU/L Alkaline Phosphatase 121 (38-126) U/L Total Creatine Kinase < 20 L (30-135) U/L Troponin I < 0.012 (0.01-0.034) ng/mL Total Protein 7.5 (6.3-8.2) g/dL Albumin 4.2 (3.5-5.0) g/dL Globulin 3.3 (1.7-4.1) g/dL Albumin/Globulin Ratio 1.3 (1.0-2.8) Lipase 78 (23-300) U/L Imaging Data Chest x-ray: Radiologist's Impression: Close Chest X-Ray (Signed) Call,Idris - 03/23/23 Injection Lumbar, Sacrum (Signed) Call,Idris - 03/20/23 SI Joint X-Ray (Signed) Armand Alexander - 01/09/23 Injection Lumbar, Sacrum (Signed) Armand Alexander - 07/13/22 Breast Ultrasound (Signed) Miki Mckenzie - 05/29/22 Shoulder X-Ray (Signed) Reji Duarte - 05/25/22 Facet Joint Injection X-Ray (Signed) Armand Alexander - 04/18/22 Facet Joint Injection X-Ray (Signed) Armand Alexander - 02/16/22 Injection Lumbar, Sacrum (Signed) Armand Alexander - 11/22/21 Lumbar Spine MRI (Signed) Tiera Lu - 10/07/21 Lumbar Spine X-Ray (Signed) Tiera Lu - 04/05/21 Sacroiliac Joint X-Ray (Signed) FeliciaDeepa - 03/15/21 Radiology Report (Cancelled) HomerosabinedeviSelinelizabeth - 07/21/20 Myocardial Perfusion Scan Nuc Med (Signed) Palsabineal,Vidhu - 07/21/20 Chest CTA (Signed) Dong Causey - 07/08/20 Chest X-Ray (Signed) Starr Barbosa - 07/08/20 Lumbar Spine X-Ray (Signed) Axel Roman - 01/14/20 Ankle X-Ray (Signed) Axel Roman - 01/14/20 Breast MRI (Signed) Deana Harmon - 12/24/18 Telemetry Strips 02/14/18 Lumbar Spine X-Ray (Signed) Amauri Cortes - 01/08/18 Telemetry Strips 08/23/15 Launch?[place] [id number] XRay Report Signed Patient: Demetra Huitron MR#: [id number] : 1960 Acct:[id number] Age/Sex: 62 / F Date of Service: 03/23/23 Loc: ED Accession Number: [id number] Procedure: XR chest 1V Ordering Provider: Aislinn Menard D.O. PROCEDURE: XR CHEST 1V INDICATIONS: chest pain TECHNIQUE: One view of the chest was acquired. COMPARISON: [facility], RICK, CHEST 2 VIEW, 08/23/2016, 14:04. [facility], RICK, XR CHEST 1V, 07/08/2020, 11:47. FINDINGS: Surgical changes and devices: Left shoulder anchors. Lungs and pleura: Lungs are clear. No pleural effusions or pneumothorax. Mediastinum: Mediastinal contours appear normal. Heart size is normal. Bones and chest wall: No suspicious bony lesions. Overlying soft tissues appear unremarkable. IMPRESSION: No acute cardiopulmonary abnormality is seen. Dictated by: Idris Park M.D. on 03/23/2023 at 9:30 Approved by: Idris Park M.D. on 03/23/2023 at 9:31 CT scan - head: Radiologist's Impression: Demetra Huitron Ivette Fabian??62??F??1960 ? Allergy/Adv: Sulfa (Sulfonamide Antibiotics), chlorthalidone (More??) Close Head CT (Signed) Eric Weller - 03/23/23 Chest X-Ray (Signed) Idris Park - 03/23/23 Injection Lumbar, Sacrum (Signed) Idris Park - 03/20/23 SI Joint X-Ray (Signed) Armand Alexander - 01/09/23 Injection Lumbar, Sacrum (Signed) Courtney Alexandere - 07/13/22 Breast Ultrasound (Signed) Miki Mckenzie - 05/29/22 Shoulder X-Ray (Signed) Reji Duarte - 05/25/22 Facet Joint Injection X-Ray (Signed) Weston,Armand - 04/18/22 Facet Joint Injection X-Ray (Signed) Catherine,Armand - 02/16/22 Injection Lumbar, Sacrum (Signed) Courtney Alexandere - 11/22/21 Lumbar Spine MRI (Signed) Tiera Lu - 10/07/21 Lumbar Spine X-Ray (Signed) Tiera Lu - 04/05/21 Sacroiliac Joint X-Ray (Signed) Deepa Duarte - 03/15/21 Radiology Report (Cancelled) Vipul Daly - 07/21/20 Myocardial Perfusion Scan Nuc Med (Signed) Josefinaal,Vidhu - 07/21/20 Chest CTA (Signed) Dong Causey - 07/08/20 Chest X-Ray (Signed) Satrr Barbosa - 07/08/20 Lumbar Spine X-Ray (Signed) Axel Roman - 01/14/20 Ankle X-Ray (Signed) Axel Roman - 01/14/20 Breast MRI (Signed) Deaan Harmon - 12/24/18 Telemetry Strips 02/14/18 Lumbar Spine X-Ray (Signed) Amauri Cortes - 01/08/18 Telemetry Strips 08/23/15 Launch?[facility] [address] [address] [address] Scan Report Signed Patient: Demetra Hutiron MR#: [id number] : 1960 Acct:[id number] Age/Sex: 62 / F Date of Service: 03/23/23 Loc: ED Accession Number: [id number] Procedure: CT head/brain wo con Ordering Provider: Aislinn Menard D.O. PROCEDURE: CT HEAD/BRAIN WO CON INDICATIONS: htn, tony x 1 week TECHNIQUE: Noncontrast 4.5 mm thick angled axial sections acquired from the foramen magnum to the vertex, with coronal and sagittal reformats. For radiation dose reduction, the following was used: automated exposure control, adjustment of mA and/or kV according to patient size. COMPARISON: [facility], CT, HEAD WITHOUT CONTRAST, 04/20/2016, 8:42. FINDINGS: Image quality: Diagnostic. CSF spaces: Basal cisterns are patent. No extra-axial fluid collections. The ventricles are symmetric in size and shape. Brain: No intracranial bleeds or masses. There is cerebral volume loss for age, with resultant ventricular and sulcal prominence. There are periventricular and deep white matter chronic small vessel ischemic changes. There is intracranial internal carotid artery atherosclerosis. Skull and face: Calvarium and visualized facial bones appear intact, without suspicious lesions. Sinuses: Visualized sinuses and mastoids are clear. IMPRESSION: No acute intracranial pathology. Dictated by: Eric Weller M.D. on 03/23/2023 at 10:36 Approved by: Eric Weller M.D. on 03/23/2023 at 10:45 ECG Data Attestation: I personally reviewed and interpreted this ECG as follows: Prior ECG tracings: available for review Interpretation: Sinus rhythm rate of 70 CT 134 QRS of 94 QTC 455, no acute ST changes appreciated patient has priors for comparison from 07/08/2020 which do not show new change. MDM Narrative Medical decision making narrative: 62-year-old female presents with complaint of persistent hypertension over the past week was initially 200 range when she 1st arrived but is trending down words to 170s. She states she is been 180s regularly throughout this week and was 190s in Dr. David office on Sunday. Patient states no reported hypertension she is not on any daily medications for blood pressure. Initial labs including CBC, CMP, coags, CK and troponin are negative. Chest x-ray is negative. EKG shows no acute changes. Patient did have head CT ordered she is had persistent headache for the past several days although no acute neurologic changes noted. Did try Advil at home without any help. Head CT is negative. Patient had Tylenol Monitoring blood pressure has improved proximally 30 points. Discussed with patient whether or not to start oral antihypertensive. She does have follow up with primary care Discharge Plan Departure Patient Disposition: Home Clinical Impression: Headache, Elevated blood pressure reading Activity Restrictions/Additional Instructions: Follow-up with your physician for recheck, your blood pressure is elevated today as it has been elevated all week please start the new blood pressure medication. Take blood pressure medication once daily. Talk with your physician about whether or not to continue this. Prescription sent to [place] pharmacy Please return for new or worsening symptoms severe headaches, passing out, new chest pain or shortness of breath, persistent vomiting, new swelling of extremities or other new or concerning changes. Prescriptions: New lisinopril 10 mg tablet 10 mg PO DAILY Qty: 14 0RF No Action celecoxib [Celebrex] 200 mg capsule 200 mg PO DAILY Qty: 90 3RF montelukast [Singulair] 10 mg tablet 10 mg PO DAILY Qty: 90 3RF venlafaxine 75 mg capsule,extended release 24hr See Rx Instructions .ROUTE .COMPLEX Qty: 270 3RF Dose Instruction: TAKE 3 CAPSULES BY MOUTH EVERY DAY Rx Instructions: TAKE 3 CAPSULES BY MOUTH EVERY DAY acyclovir 400 mg tablet See Rx Instructions .ROUTE .COMPLEX Qty: 30 0RF Dose Instruction: TAKE 1 TABLET BY MOUTH THREE TIMES DAILY FOR 5 DAYS FOR COLD SORE; WHILE AWAKE; GIVE 5 DOSES IN 24 HOURS Rx Instructions: TAKE 1 TABLET BY MOUTH THREE TIMES DAILY FOR 5 DAYS FOR COLD SORE; WHILE AWAKE; GIVE 5 DOSES IN 24 HOURS omeprazole 40 mg capsule,delayed release(/EC) See Rx Instructions .ROUTE .COMPLEX Qty: 180 2RF Dose Instruction: TAKE 1 CAPSULE BY MOUTH TWICE DAILY FOR GERD MAX DAILY DOSE Rx Instructions: TAKE 1 CAPSULE BY MOUTH TWICE DAILY FOR GERD MAX DAILY DOSE hydroxyzine HCl 25 mg tablet See Rx Instructions .ROUTE .COMPLEX Qty: 180 0RF Dose Instruction: Take 2 tablets (50 mg) by mouth at bedtime Rx Instructions: Take 2 tablets (50 mg) by mouth at bedtime. Call clinic to schedule appt prior to future refills. fluticasone propionate [Flonase Allergy Relief] 50 mcg/actuation spray,suspension 1 spray NASAL DAILY PRN (Reason: Allergies) Rx Instructions: administer into each nostril gabapentin 300 mg capsule 300 mg PO .COMPLEX Qty: 90 2RF Rx Instructions: 1-2 PO Tid to begin at HS and titrate to pain relief diazepam [Valium] 10 mg tablet 10 mg PO .COMPLEX MDD 3 tabs PRN (Reason: 1-2 prior to MRI and for possible steroid flare) Qty: 10 0RF Rx Instructions: 10 mg PO PRN; tramadol 50 mg tablet 50 mg PO BID PRN (Reason: pain) Qty: 42 1RF (DME) Respironics Dreamstation CPAP Qty: 1 Dose Instruction: As directed Patient Comments: Pressure: 10-13 cmH2O DME: [facility] Rx Instructions: As directed Referrals: Flores Douglas PA-C [Primary Care Provider] - Stand Alone Forms: Patient Portal/API
--- NOTE | 2023-03-23 10:09 | DI.CT.S_ITS ---
PROCEDURE: CT HEAD/BRAIN WO CON INDICATIONS: htn, tony x 1 week TECHNIQUE: Noncontrast 4.5 mm thick angled axial sections acquired from the foramen magnum to the vertex, with coronal and sagittal reformats. For radiation dose reduction, the following was used: automated exposure control, adjustment of mA and/or kV according to patient size. COMPARISON: [facility], CT, HEAD WITHOUT CONTRAST, 04/20/2016, 8:42. FINDINGS: Image quality: Diagnostic. CSF spaces: Basal cisterns are patent. No extra-axial fluid collections. The ventricles are symmetric in size and shape. Brain: No intracranial bleeds or masses. There is cerebral volume loss for age, with resultant ventricular and sulcal prominence. There are periventricular and deep white matter chronic small vessel ischemic changes. There is intracranial internal carotid artery atherosclerosis. Skull and face: Calvarium and visualized facial bones appear intact, without suspicious lesions. Sinuses: Visualized sinuses and mastoids are clear. IMPRESSION: No acute intracranial pathology. Dictated by: Eric Weller M.D. on 03/23/2023 at 10:36 Approved by: Eric Weller M.D. on 03/23/2023 at 10:45
[2023-03-23] MEDS: ACETAMINOPHEN 325 MG TABLET 975 MG PO (10:33)
[2023-03-23] MEDS: lisinopriL 10 MG TABLET PO (11:48)
== END 2023-03-23 11:55 | disposition home or self-care (01) ==
PROVIDERS: Emergency Provider Emergency Medicine; Family Provider Family Medicine; PCP Physician Assistant
DX: I10 Essential (primary) hypertension (principal); R51.9 Headache, unspecified
CPT/HCPCS: 36415; 70450; 71045; 80053; 82550; 83690; 83735; 84484; 85025; 85610; 85730; 93005; 93010; 99284

== ENCOUNTER 2023-04-04 09:01 | Emergency (ER) | payer OTHER, SELFPAY ==
[2023-04-04] VITALS (12 sets, daily range): BP systolic 144–214; BP diastolic 71–103; PULSE 71–94; RESP 12–24; TEMP 37.2; O2SAT 98–100; BMI 41.1
--- NOTE | 2023-04-04 10:01 | ED_ITS ---
HPI - General Adult General Chief complaint: Hypertension Stated complaint: blood pressure very high and off meds Time Seen by Provider: 04/04/23 09:37 Source: patient Mode of arrival: Wheelchair History of Present Illness HPI narrative: 62-year-old female. Has a history of high blood pressure. She has not been on any of her medicines for the past 2 weeks secondary to issues with her insurance company/pharmacy and the fact that she gets them male to her. She states they are currently in the mail. There was a delay because of the holidays. She is here because last evening her blood pressure was elevated. Systolic blood pressure in the 190s. She states she just generally does not feel very well. Has had diarrhea and nausea. No vomiting. She is having Chills. Related Data Home Medications Medication Instructions Recorded Confirmed Respironics Dreamstation CPAP #1 ea 10/24/18 03/14/23 fluticasone propionate 50 1 spray intranasal DAILY PRN 01/14/20 03/14/23 mcg/actuation nasal Allergies spray,suspension (Flonase Allergy Relief) Previous Rx's Medication Instructions Recorded celecoxib 200 mg capsule (Celebrex) 200 mg PO DAILY #90 caps 05/18/22 acyclovir 400 mg tablet See Rx Instructions .Route 06/05/22 .COMPLEX #30 tabs montelukast 10 mg tablet 10 mg PO DAILY #90 tabs 06/05/22 (Singulair) omeprazole 40 mg capsule,delayed See Rx Instructions .Route 06/05/22 release .COMPLEX #180 caps venlafaxine 75 mg capsule,extended See Rx Instructions .Route 06/05/22 release 24 hr .COMPLEX #270 caps tramadol 50 mg tablet 50 mg PO BID PRN pain #42 tabs 06/26/22 diazepam 10 mg tablet (Valium) 10 mg PO .COMPLEX PRN 1-2 prior to 03/14/23 MRI and for possible steroid flare #10 tabs gabapentin 300 mg capsule 300 mg PO .COMPLEX #90 caps 03/14/23 lisinopril 10 mg tablet 10 mg PO DAILY #14 tabs 03/23/23 hydroxyzine HCl 25 mg tablet 50 mg (2 x 25 mg) PO BEDTIME #180 04/03/23 tabs Allergies Allergy/AdvReac Type Severity Reaction Status Date / Time Sulfa (Sulfonamide Allergy Verified 03/23/23 09:10 Antibiotics) chlorthalidone AdvReac Mild bloating,, Verified 03/23/23 09:10 [CHLORTHALIDONE] urinary symptoms Review of Systems Constitutional Constitutional: Reports system reviewed and no additional complaints, except as documented Cardiovascular Cardiovascular: Reports system reviewed and no additional complaints, except as documented Respiratory Respiratory: Reports system reviewed and no additional complaints, except as documented Gastrointestinal Gastrointestinal: Reports system reviewed and no additional complaints, except as documented Musculoskeletal Musculoskeletal: Reports system reviewed and no additional complaints, except as documented Hematologic/Lymphatic On Anticoagulants: No Patient History Medical History Sacral dysfunction Herniated nucleus pulposus, L5-S1, left Facet arthropathy, lumbar Morbid obesity with BMI of 40.0-44.9, adult Low back pain Obstructive sleep apnea of adult Hayfever Depression Migraines Chronic headaches Chicken pox (~1965) Recurrent sinusitis BRCA gene mutation positive in female (2009) GERD (gastroesophageal reflux disease) Gastric ulcer (2008) Colitis (2009) Breast cancer (2009) Hot flashes due to menopause (05/22/16) Surgical History Hx of cervical discectomy Anesthesia History of back surgery (07/2009) Status post cholecystectomy (2015) History of total mastectomy (07/2011) History of total mastectomy (12/2010) Status post hysterectomy (12/2002) Status post tubal ligation (1980) Family History Child Age: 43 Bipolar 1 disorder Essential hypertension Child Age: 41 Essential hypertension Father Age: 86 Hypertension Dementia Mother Age: 86 Hypertension Grandfather No problems noted. Grandmother No problems noted. Sister Breast cancer Sister No problems noted. Sister No problems noted. Social History marital status: household members: spouse lives independently: Yes occupational status: employed Smoking Status: Never smoker alcohol intake: current substance use type: does not use Smoking Status: Never smoker alcohol intake frequency: holidays/special occasions only Substance Use Type: does not use Exam Initial Vital Signs Initial Vital Signs: Vital Signs Temperature 98.9 F 04/04/23 09:25 Pulse Rate 94 H 04/04/23 09:25 Respiratory Rate 18 04/04/23 09:25 Blood Pressure 175/89 H 04/04/23 09:25 Pulse Oximetry 99 04/04/23 09:25 Oxygen Delivery Method Room Air 04/04/23 09:25 Const General: cooperative, comfortable and No ill appearing HENMT Head: normal to inspection and normocephalic Resp Effort & Inspection: normal respiratory effort Auscultation: clear to auscultation bilaterally Cardio Rate: regular rate Rhythm: regular rhythm GI Inspection: normal to inspection and non-distended Skin General: no rashes or lesions noted Neuro General: patient alert, patient awake, patient oriented x3 and moves all extremities Extrem General: No edema Course Orders Ordered: ED Orders 04/04/23 09:38 EKG-12 Lead Stat 04/04/23 10:29 Basic Metabolic Panel Stat Complete Blood Count AUTO DIFF Stat Covid-19 + FLU A/B + RSV - PCR Stat Troponin & CK Cardiac Panel Stat 04/04/23 11:32 Urine Culture Stat Urine Microscopic Stat Discontinued Medications Sodium Chloride (Normal Saline 0.9%) 1,000 mls @ 1,000 mls/hr IV BOLUS ONE Stop: 04/04/23 10:59 Last Admin: 04/04/23 10:35 Dose: 1,000 mls/hr Documented By: DEANNA Ondansetron HCl (Ondansetron 4 Mg/2 Ml Inj) 4 mg IV NOW ONE Stop: 04/04/23 10:01 Last Admin: 04/04/23 10:35 Dose: 4 mg Documented By: DEANNA Vital Signs Vital signs: Vital Signs - 8 hr 04/04/23 09:25 04/04/23 09:56 04/04/23 09:57 Temperature 98.9 F Pulse Rate 94 H 71 71 Respiratory Rate 18 Blood Pressure 175/89 H Pulse Oximetry 99 99 98 Oxygen Delivery Method Room Air 04/04/23 09:57 04/04/23 10:00 04/04/23 10:01 Temperature Pulse Rate 72 79 Respiratory Rate Blood Pressure 214/103 H Pulse Oximetry 98 100 Oxygen Delivery Method Room Air 04/04/23 10:01 04/04/23 10:30 04/04/23 10:31 Temperature Pulse Rate 79 73 Respiratory Rate 19 15 Blood Pressure 201/99 H Pulse Oximetry 99 100 Oxygen Delivery Method Room Air 04/04/23 10:31 04/04/23 11:00 04/04/23 11:01 Temperature Pulse Rate 75 74 Respiratory Rate 15 14 Blood Pressure 171/77 H Pulse Oximetry 99 99 Oxygen Delivery Method Room Air 04/04/23 11:01 04/04/23 11:30 04/04/23 12:00 Temperature Pulse Rate 73 80 Respiratory Rate 12 24 Blood Pressure 144/71 H Pulse Oximetry 98 99 Oxygen Delivery Method 04/04/23 12:00 Temperature Pulse Rate Respiratory Rate Blood Pressure 151/83 H Pulse Oximetry Oxygen Delivery Method Medical Decision Making Lab Data Lab results reviewed: Yes I reviewed the patient's lab results. 04/04/23 10:29 04/04/23 10:29 Labs: Lab Results 04/04/23 04/04/23 Range/Units 10:29 11:32 WBC 8.6 (4.5-11.0) X10^3/uL RBC 5.09 (4.0-5.2) X10^6/uL Hgb 15.8 (12.0-16.0) g/dL Hct 44.7 (36-46) % MCV 88.0 (80-100) fL MCH 31.1 (26-34) PG MCHC 35.3 (30-36) % RDW 13.9 (11.6-14.8) % Plt Count 294 (150-400) X10^3/uL Neut % (Auto) Not Reportable Lymph % (Auto) Not Reportable [place] % (Auto) Not Reportable Eos % (Auto) Not Reportable Baso % (Auto) Not Reportable Lymph # (Auto) Not Reportable [place] # (Auto) Not Reportable Baso # (Auto) Not Reportable Total Counted 100 Seg Neutrophils % 76.0 H (38-70) % Lymphocytes % (Manual) 15.0 L (25-45) % Monocytes % (Manual) 7.0 (2-11) % Eosinophils % (Manual) 1.0 L (2-4) % Basophils % (Manual) 1.0 (0-1) % Neutrophils # (Manual) 6536 H (2003-7972) /uL RBC Morphology Normal morphology Sodium 138 (137-145) mmol/L Potassium 3.6 (3.4-5.1) mmol/L Chloride 104 (98-107) mmol/L Carbon Dioxide 24 (22-32) mmol/L BUN 10 (7-17) mg/dL Creatinine 0.69 (0.52-1.04) mg/dL Estimated GFR > 60 (>60) mL/min BUN/Creatinine Ratio 14.5 (6-22) Glucose 128 H (80-110) mg/dL Calcium 10.1 (8.4-10.2) mg/dL Total Creatine Kinase < 20 L (30-135) U/L Troponin I < 0.012 (0.01-0.034) ng/mL Urine RBC None seen (0-5/HPF) Urine WBC 5-10/hpf H (0-5/HPF) Ur Squamous Epith Cells 1-5 /hpf (0-5/HPF) Urine Bacteria Few (2-10) H (None) Ur Culture Indicated? Specimen cultured SARS-CoV-2 (PCR) Negative (Negative) Influenza A (RT-PCR) Flu a negative (NEGATIVE) Influenza B (RT-PCR) Flu b negative (NEGATIVE) RSV (PCR) Negative (Negative) Urine Dip Bedside Urine Glucose Negative Bedside Urine Bilirubin - Negative Bedside Urine Ketone ++ 40 Urine Specific [place] 1.010 Bedside Urine Occult Blood - Negative Bedside Urine pH 7.5 Bedside Urine Protein +/- 15 Bedside Urine Urobilinogen - Negative Bedside Urine Nitrite - Negative Bedside Urine Leukocytes + 70 Esterase Point of care testing: Urine Dip Bedside Urine Glucose Negative Bedside Urine Bilirubin - Negative Bedside Urine Ketone ++ 40 Urine Specific [place] 1.010 Bedside Urine Occult Blood - Negative Bedside Urine pH 7.5 Bedside Urine Protein +/- 15 Bedside Urine Urobilinogen - Negative Bedside Urine Nitrite - Negative Bedside Urine Leukocytes + 70 Esterase ECG Data Attestation: I personally reviewed and interpreted this ECG as follows: Interpretation: Sinus rhythm Ventricular rate is 79 Normal axis LVH No ST T wave changes MDM Narrative Medical decision making narrative: Her blood pressure improved without specific intervention here in the emergency department. Her labs are unremarkable. She does have blood pressure medication that should be coming to her in the mail and she expects those within the next couple days. There was no indication for antibiotics. No indication for admission to the hospital. Discuss this with her. Will have her take her blood pressure medications when they arrived. She was given return precautions. She expressed understanding and agreement. Discharge Plan Departure Patient Disposition: Home Clinical Impression: Hypertension Instructions: DI for High Blood Pressure Activity Restrictions/Additional Instructions: Recommend that you contact your primary care provider for follow-up in when you receive your blood pressure medications in the mail you start taking them as directed. Return to the emergency department for new symptoms. Prescriptions: No Action celecoxib [Celebrex] 200 mg capsule 200 mg PO DAILY Qty: 90 3RF montelukast [Singulair] 10 mg tablet 10 mg PO DAILY Qty: 90 3RF venlafaxine 75 mg capsule,extended release 24hr See Rx Instructions .ROUTE .COMPLEX Qty: 270 3RF Dose Instruction: TAKE 3 CAPSULES BY MOUTH EVERY DAY Rx Instructions: TAKE 3 CAPSULES BY MOUTH EVERY DAY acyclovir 400 mg tablet See Rx Instructions .ROUTE .COMPLEX Qty: 30 0RF Dose Instruction: TAKE 1 TABLET BY MOUTH THREE TIMES DAILY FOR 5 DAYS FOR COLD SORE; WHILE AWAKE; GIVE 5 DOSES IN 24 HOURS Rx Instructions: TAKE 1 TABLET BY MOUTH THREE TIMES DAILY FOR 5 DAYS FOR COLD SORE; WHILE AWAKE; GIVE 5 DOSES IN 24 HOURS omeprazole 40 mg capsule,delayed release(DR/EC) See Rx Instructions .ROUTE .COMPLEX Qty: 180 2RF Dose Instruction: TAKE 1 CAPSULE BY MOUTH TWICE DAILY FOR GERD MAX DAILY DOSE Rx Instructions: TAKE 1 CAPSULE BY MOUTH TWICE DAILY FOR GERD MAX DAILY DOSE hydroxyzine HCl 25 mg tablet 50 mg PO BEDTIME Qty: 180 0RF fluticasone propionate [Flonase Allergy Relief] 50 mcg/actuation spray,suspension 1 spray NASAL DAILY PRN (Reason: Allergies) Rx Instructions: administer into each nostril lisinopril 10 mg tablet 10 mg PO DAILY Qty: 14 0RF gabapentin 300 mg capsule 300 mg PO .COMPLEX Qty: 90 2RF Rx Instructions: 1-2 PO Tid to begin at HS and titrate to pain relief diazepam [Valium] 10 mg tablet 10 mg PO .COMPLEX MDD 3 tabs PRN (Reason: 1-2 prior to MRI and for possible steroid flare) Qty: 10 0RF Rx Instructions: 10 mg PO PRN; tramadol 50 mg tablet 50 mg PO BID PRN (Reason: pain) Qty: 42 1RF (DME) Respironics Dreamstation CPAP Qty: 1 Dose Instruction: As directed Patient Comments: Pressure: 10-13 cmH2O DME: [facility] Rx Instructions: As directed Stand Alone Forms: Patient Portal/API
[2023-04-04] MEDS: ONDANSETRON 4 MG/2 ML INJ IV (10:35)
[2023-04-04] MEDS: SODIUM CHLORIDE 0.9% 1,000 ML 1000 ML IV (10:35)
--- NOTE | 2023-04-04 10:36 | PC.NURSE ---
Pt is anxious, tearful, and sniffling. She asks could going off my medication cause all this?. Pt expresses complications with obtaining her medications because insurance yells at me. History of bilateral mastectomy and states the BP cuff makes her hands numb, but states the numbness has gone now. Pt c/o diarrhea the past 2 days and a headache.
[2023-04-04 10:37] LABS: Add Manual Diff / Slide Review YES; Hematocrit 44.7 % (36-46); Hemoglobin 15.8 g/dL (12.0-16.0); Mean Corpuscular HGB Conc 35.3 % (30-36); Mean Corpuscular Hemoglobin 31.1 PG (26-34); Platelet Count 294 X10^3/uL (150-400); Red Blood Cell Count 5.09 X10^6/uL (4.0-5.2); Red Cell Distribution Width 13.9 % (11.6-14.8); White Blood Cell Count 8.6 X10^3/uL (4.5-11.0)
[2023-04-04 10:47] LABS: BUN Creatinine Ratio 14.5 (6-22); Blood Urea Nitrogen 10 mg/dL (7-17); Calcium 10.1 mg/dL (8.4-10.2); Carbon Dioxide 24 mmol/L (22-32); Chloride 104 mmol/L (98-107); Creatine Kinase < 20 U/L (30-135); Estimated Glomerular Filt Rate > 60 mL/min (>60); Glucose 128 mg/dL (80-110); HEMOLYSIS < 15 (0-50); Potassium 3.6 mmol/L (3.4-5.1); Sodium 138 mmol/L (137-145)
[2023-04-04 10:54] LABS: Neutrophils Absolute Manual 6536 /uL (3000-5900); RBC Morphology Normal Morphology; Total Cells Counted 100
[2023-04-04 10:59] LABS: Troponin I < 0.012 ng/mL (0.01-0.034)
--- NOTE | 2023-04-04 11:10 | PC.NURSE ---
Pt is requesting something to calm me down. Pt informed of waiting for her results to come back, provider notified.
[2023-04-04 11:24] LABS: COVID-19 CEPHEID 4-PLEX PCR Negative (Negative); Influenza A - CEPHEID Flu A NEGATIVE (NEGATIVE); Influenza B - CEPHEID Flu B NEGATIVE (NEGATIVE); Respiratory Syncytial Virus Negative (Negative)
--- NOTE | 2023-04-04 11:24 | PC.NURSE ---
Pt now laying in bed, eyes closed, states she was able to sleep for a few minutes and is feeling much better. Pt reports not knowing what rest is, recently.
[2023-04-04 11:41] LABS: Bacteria Urine Few (2-10); RBC Urine None Seen (0-5/HPF); WBC Urine 5-10/HPF (0-5/HPF)
[2023-04-04 11:42] LABS: Culture Indicated Urine Specimen Cultured; Squamous Epithelial Cell Urine 1-5 /HPF (0-5/HPF)
== END 2023-04-04 12:12 | disposition home or self-care (01) ==
PROVIDERS: Emergency Provider Emergency Medicine
DX: I10 Essential (primary) hypertension (principal); Z20.822 Contact with and (suspected) exposure to COVID-19; Z79.899 Other long term (current) drug therapy
CPT/HCPCS: 0241U; 36415; 80048; 81003; 81015; 82550; 84484; 85007; 85025; 87086; 93005; 96361; 96374; 99284; J2405

== ENCOUNTER → 2023-04-11 07:58 | Outpatient (CLI) | payer OTHER, SELFPAY ==
[2023-04-11 10:08] LABS: Hemoglobin A1C% w Est Avg Glu 5.4 % (4.0-6.0)
[2023-04-11 10:16] LABS: BUN Creatinine Ratio 22.4 (6-22); Blood Urea Nitrogen 17 mg/dL (7-17); Calcium 9.8 mg/dL (8.4-10.2); Carbon Dioxide 27 mmol/L (22-32); Chloride 104 mmol/L (98-107); Cholesterol 222 mg/dL (140-199); Estimated Glomerular Filt Rate > 60 mL/min (>60); Glucose 97 mg/dL (80-110); HDL Cholesterol 63 mg/dL (40-60); HEMOLYSIS < 15 (0-50); LDL Cholesterol Calculated 135 mg/dL (<100); Potassium 4.3 mmol/L (3.4-5.1); Sodium 138 mmol/L (137-145); Triglycerides 121 mg/dL (35-150)
[2023-04-11 10:45] LABS: Carcinoembryonic Antigen 0.5 ng/mL (0.1-3.0); TSH w/ Reflex to FT4 1.68 uIU/mL (0.47-4.68)
[2023-04-12 08:36] LABS: Cancer Antigen 27.29 24.5 U/mL (0.0-38.6)
[2023-04-12 11:54] LABS: CA 15-3 17.4 U/mL (0.0-25.0)
== END ==
PROVIDERS: PCP Family Medicine; Referring Provider Family Medicine; Visit Provider Family Medicine
DX: N64.4 Mastodynia (principal); I10 Essential (primary) hypertension; R03.0 Elevated blood-pressure reading, without diagnosis of hypertension; Z85.3 Personal history of malignant neoplasm of breast
CPT/HCPCS: 36415; 80048; 80061; 82378; 83036; 84443; 86300

== ENCOUNTER → 2023-05-22 12:55 | Outpatient (CLI) | payer OTHER, SELFPAY ==
--- NOTE | 2023-05-22 12:56 | DI.MRI.S_ITS ---
BREAST MRI OF BOTH BREASTS: 05/22/2023 CLINICAL: Breast cancer. Family history breast cancer. PROCEDURE: MR BREAST BI WO/W CON INDICATIONS: Breast pain, history of breast cancer status post bilateral mastectomies with implant reconstruction TECHNIQUE: The patient was placed prone in a dedicated breast imaging coil. Precontrast axial STIR and 3D FLASH without fat saturation sequences were obtained. Both before and after bolus injection of contrast, sequential 1-minute axial 3D FLASH with fat saturation sequences for 3 time points, with subtraction images and maximum intensity projections (MIP's) generated. Delayed sagittal FLASH images with fat saturation were also obtained. Computer-aided detection, including computer algorithm analysis of MRI image data for lesion detection and characterization, pharmacokinetic analysis, with further physician review for interpretation, was performed. COMPARISON: Breast MRI 12/24/2018, 01/13/2016 FINDINGS: Image quality: Diagnostic. Right breast: Status post right breast mastectomy. There is an intact retropectoral saline implant. No suspicious enhancement or lymphadenopathy. Left breast: Status post left breast mastectomy. There is an intact retropectoral saline implant. No suspicious enhancement or lymphadenopathy. IMPRESSION: BENIGN Status post bilateral mastectomies with intact retropectoral saline implants. No MRI evidence of malignancy. Recommend clinical follow-up. This exam was interpreted at Station ID: [id number]. Electronically Signed By: Lizz Reyes M.D., PH.D eb/:05/22/2023 16:23:51 ACR BI-RADS Category 2: Benign Finding(s) [id number]
== END ==
LOC: MRI 12:55
PROVIDERS: PCP Family Medicine; Referring Provider Family Medicine; Visit Provider Family Medicine
DX: N64.4 Mastodynia (principal); Z85.3 Personal history of malignant neoplasm of breast; Z80.3 Family history of malignant neoplasm of breast; Z90.13 Acquired absence of bilateral breasts and nipples; Z98.82 Breast implant status
CPT/HCPCS: 77049; A9579

== ENCOUNTER → 2023-06-14 07:55 | Outpatient (CLI) | payer OTHER, SELFPAY ==
--- NOTE | 2023-06-14 07:59 | DI.RAD.S_ITS ---
PROCEDURE: XR CHEST 1V INDICATIONS: SOB, r/o PNA TECHNIQUE: One view of the chest was acquired. COMPARISON: [facility], CR, XR CHEST 1V, 03/23/2023, 9:15. FINDINGS: Surgical changes and devices: N left rotator cuff repair. Lungs and pleura: Lungs are clear. No pleural effusions or pneumothorax. Mediastinum: Mediastinal contours appear normal. Heart size is normal. Bones and chest wall: No suspicious bony lesions. Overlying soft tissues appear unremarkable. IMPRESSION: No acute cardiopulmonary abnormality is seen. Dictated by: Eric Weller M.D. on 06/14/2023 at 11:30 Approved by: Eric Weller M.D. on 06/14/2023 at 11:30
== END ==
LOC: RAD 07:58
PROVIDERS: PCP Family Medicine; Referring Provider Family Medicine; Visit Provider Family Medicine
DX: R05.9 Cough, unspecified (principal)
CPT/HCPCS: 71045

== ENCOUNTER → 2023-07-09 19:42 | Outpatient (CLI) | payer OTHER, SELFPAY ==
--- NOTE | 2023-07-09 | DI.MRI.S_ITS ---
PROCEDURE: MR HEAD/BRAIN WO/W CON INDICATIONS: TRIGEMINAL NEURALGIA RT SIDE OF FACE TECHNIQUE: Noncontrast sagittal T1 spin echo, axial T2 fast spin echo, axial FLAIR, axial gradient echo, axial diffusion and ADC through the brain. Axial/sagittal/coronal 3-D CISS, thin-slice axial T1 spin echo with fat saturation through the skull base. After the administration of contrast, axial and coronal thin-slice T1 spin echo with fat saturation through the skull base, axial and coronal and sagittal T1 spin echo with fat saturation through the brain. COMPARISON: [facility], CT, CT HEAD/BRAIN WO CON, 03/23/2023, 10:15. FINDINGS: Image quality: Excellent. Trigeminal nerves: In this patient with this given history, scrutiny is given to the trigeminal nerves. The trigeminal nerves demonstrate a normal appearance, without masses or abnormal enhancement seen along their courses, including within the Meckel's caves. CSF spaces: Ventricles are normal in size and shape. No extra-axial fluid collections. Basal cisterns are patent. Brain: No intracranial bleeds or mass effects. No abnormal intracranial enhancement. Diffusion weighted images show no acute ischemic insults. Jaramillo-white matter interface is intact. Brainstem is normal. Normal intravascular flow voids are present. Skull and face: Calvarial marrow signal is normal. Orbits appear normal. Sinuses: Sinuses and mastoids appear clear. IMPRESSION: No imaging explanation is found for this patient's presenting symptoms. No masses or abnormal enhancement can be seen involving the trigeminal nerves. Dictated by: Armand Alexander M.D. on 07/10/2023 at 9:09 Approved by: Armand Alexander M.D. on 07/10/2023 at 9:12
== END ==
LOC: MRI 19:43
PROVIDERS: PCP Family Medicine; Referring Provider Otolaryngology; Visit Provider Otolaryngology
DX: G50.0 Trigeminal neuralgia (principal); R51.9 Headache, unspecified
CPT/HCPCS: 70553; A9579

== ENCOUNTER → 2023-07-17 15:20 | Outpatient (CLI) | payer OTHER, SELFPAY ==
[2023-07-17 16:38] LABS: Appearance Urine UA CLEAR; Bilirubin Urine UA NEGATIVE (NEGATIVE); Color Urine UA YELLOW; Glucose Urine UA NEGATIVE (Negative); Ketones Urine UA NEGATIVE (NEGATIVE); Leukocyte Esterase Urine UA 1+ (NEGATIVE); Nitrite Urine UA NEGATIVE (Negative); Occult Blood Urine UA TRACE-INTACT (Negative); Protein Urine UA 1+ (Negative); Specific Gravity Urine UA >=1.030 (1.000-1.035)
[2023-07-17 17:16] LABS: pH Urine UA 5.5 (4.5-8.0)
[2023-07-17 17:36] LABS: Bacteria Urine Moderate (10-30); Mucus Urine 1+ (Negative); RBC Urine 1-5/HPF (0-5/HPF); Squamous Epithelial Cell Urine 1-5 /HPF (0-5/HPF); Transitional Epi Cells Urine 0-1/HPF (0-5/HPF); Urine Volume 10mL (spun); WBC Urine 30-100/HPF (0-5/HPF)
[2023-07-17 17:37] LABS: Culture Indicated Urine Specimen Cultured
== END ==
PROVIDERS: PCP Family Medicine; Visit Provider Physician Assistant Surgical
DX: R30.0 Dysuria (principal); R35.0 Frequency of micturition
CPT/HCPCS: 81001; 87086

== ENCOUNTER → 2023-08-07 09:13 | Outpatient (CLI) | payer OTHER, SELFPAY ==
[2023-08-07 10:06] LABS: Add Manual Diff / Slide Review NO; Basophils Absolute Auto 0 /uL (0-100); Basophils Percent Auto 0.2 % (0-2); Eosinophils Absolute Auto 100 /uL (0-450); Eosinophils Percent Auto 1.8 % (2-4); Hematocrit 42.7 % (36-46); Hemoglobin 14.9 g/dL (12.0-16.0); Lymphocytes Absolute Auto 1500 /uL (1100-4500); Lymphocytes Percent Auto 32.3 % (25-40); Mean Corpuscular HGB Conc 34.9 % (30-36); Mean Corpuscular Hemoglobin 31.4 PG (26-34); Mean Corpuscular Volume 89.8 fL (80-100); Monocytes Absolute Auto 400 /uL (0-900); Monocytes Percent Auto 7.7 % (3-14); Neutrophils Absolute Auto 2700 /uL (1500-7000); Platelet Count 249 X10^3/uL (150-400); Red Blood Cell Count 4.76 X10^6/uL (4.0-5.2); Red Cell Distribution Width 13.7 % (11.6-14.8); White Blood Cell Count 4.6 X10^3/uL (4.5-11.0)
[2023-08-07 10:40] LABS: Alanine Aminotransferase 19 IU/L (<35); Albumin 4.3 g/dL (3.5-5.0); Albumin Globulin Ratio 1.6 (1.0-2.8); Alkaline Phosphatase 132 U/L (38-126); Aspartate Aminotransferase 23 IU/L (14-36); BUN Creatinine Ratio 13.8 (6-22); Bilirubin Total 0.7 mg/dL (0.2-1.3); Blood Urea Nitrogen 9 mg/dL (7-17); Calcium 9.4 mg/dL (8.4-10.2); Carbon Dioxide 28 mmol/L (22-32); Chloride 99 mmol/L (98-107); Estimated Glomerular Filt Rate > 60 mL/min (>60); Globulin 2.7 g/dL (1.7-4.1); Glucose 115 mg/dL (80-110); HEMOLYSIS < 15 (0-50); Potassium 4.4 mmol/L (3.4-5.1); Sodium 132 mmol/L (137-145)
== END ==
LOC: LAB 09:14
PROVIDERS: PCP Family Medicine; Referring Provider Family Medicine; Visit Provider Family Medicine
DX: Z51.81 Encounter for therapeutic drug level monitoring (principal)
CPT/HCPCS: 36415; 80053; 85025

== ENCOUNTER 2023-08-09 14:56 | Outpatient (CLI) | payer OTHER, SELFPAY ==
[2023-08-09] VITALS (8 sets, daily range): BP systolic 138–184; BP diastolic 67–93; PULSE 89–98; RESP 15–22; TEMP 37; O2SAT 95–100
--- NOTE | 2023-08-09 15:30 | DI.RAD.S_ITS ---
PROCEDURE: PAIN SI JOINT INJECTION INDICATIONS: LEFT SI joint injection COMPARISON: [facility], , PAIN SI JOINT INJECTION, 01/09/2023, 8:13. FINDINGS: Fluoroscopic spot filming was performed to verify placement of spinal needles at the labeled left SI joint level(s), as labeled on the films. Appropriate location(s) of the needle tip(s) was confirmed by injection of iodinated contrast. IMPRESSION: Contrast and needle localization overlying the left SI joint. Dictated by: Tiera Lu M.D. on 08/10/2023 at 15:22 Approved by: Tiera Lu M.D. on 08/10/2023 at 15:23
[2023-08-09] MEDS: MIDAZOLAM 2 MG/2 ML VIAL IV (16:15)
[2023-08-09] MEDS: iopamidoL 15 ML VIAL 3 ML INJ (16:19)
[2023-08-09] MEDS: BUPIVACAINE 0.5% (PF) 10 ML VIAL 2 ML INJ (16:20)
[2023-08-09] MEDS: BETAMETHASONE 30 MG/5 ML MDV 12 MG INJ (16:20)
--- NOTE | 2023-08-09 16:30 | PM.PROC.IR.1 ---
Date/Time/Diagnoses Date of procedure: 08/09/23 Time of procedure: 16:31 Pre-procedure diagnosis: Sacroiliac Joint Pain/DJD Post-procedure diagnosis: same Procedure Notes Procedure: Fluoroscopically guided contrast controlled left sacroiliac joint injection Indications: Demetra Steele is referred by Dr. Blackwell for treatment of left sacroiliac joint DJD Physician: Salty Maria Total Fluoroscopy time (seconds): 12 Total sedation minutes: 10 Complications: none Procedure in detail & Post-procedure care: DESCRIPTION OF PROCEDURE Fluoroscopic guided, contrast controlled left sacroiliac joint injection Following review of allergies and review of potential side effects and complications, including, but not necessarily limited to, infection, allergic reaction, local tissue breakdown, temporary as well as permanent nerve injury, paralysis, stroke and possible , the patient indicated that they understood and agreed to proceed. An informed consent was signed by the patient, witnessed by a nurse, and placed in the patient's chart. Additionally, other treatment options including modalities, medications, and physical therapy were reviewed with the patient. After review of previous anaesthesic history and IV conscious sedation the patient was deemed safe to proceed with today?s procedure with IV conscious sedation as ASA class II designation. Safety time-out was performed to confirm patient ID, procedure to be performed and site of procedure. IV sedation was accomplished with a combination of 2mg of Versed administered by the RN after DO order, titrated to patient comfort during the course of the procedure while the patient remained responsive to all verbal commands. In the prone position following sterile prep and drape of the pelvic region, the hyper lucency on in the inferior aspect of the left sacroiliac joint was identified fluoroscopically the skin was anesthetized be a 25 gauge 1 eventual with approximately 2cc of 1% lidocaine solution. At this point, a 22 gauge 3inch spinal needle was atraumatically introduced and advanced under fluoroscopic guidance into the inferior aspect of the left sacroiliac joint. Following negative aspiration, approximately 0.3cc of Isovue-300 was injected confirming intra-articular placement without vascular uptake. Radiographic data, including multiple fluoroscopic views of the pelvis, reveals a spinal needle in the left sacroiliac joint hyper lucent zone. Subsequent view show flow contrast tear superiorly and inferiorly within the joint capsule without vascular intrathecal uptake. At this point a total of 1cc or 0.5% Marcaine was combined with 1cc of 6mg of betamethasone was injected without incident. The patient tolerated the procedure well without signs or symptoms of complications prior to transfer to the recovery area for further monitoring. The patient was then transferred to the recovery area with a bur observed for an appropriate time after the injection. The patient reverted a vas score of 7 prior to the procedure and postprocedure vas of 1. POSTOP INSTRUCTIONS The patient was provided with a pain like to continue to record the patient's response to the target specific procedure prior to the patient's follow-up visit with the referring physician. Additionally, specific post injection care instructions and a contact number to our office were provided if concerns arise regarding the possible complications associated with procedure are suspected.
== END 2023-08-09 16:45 | disposition home or self-care (01) ==
PROVIDERS: PCP Family Medicine; Referring Provider Physical Medicine & Rehabilitation; Visit Provider Physical Medicine & Rehabilitation
DX: M53.3 Sacrococcygeal disorders, not elsewhere classified (principal); M46.1 Sacroiliitis, not elsewhere classified
CPT/HCPCS: 27096; 99152; J0702; J2250

== ENCOUNTER → 2023-11-03 10:29 | Outpatient (CLI) | payer BC, SELFPAY ==
[2023-11-03 11:30] LABS: Alanine Aminotransferase 18 IU/L (<35); Albumin 4.2 g/dL (3.5-5.0); Albumin Globulin Ratio 1.6 (1.0-2.8); Alkaline Phosphatase 144 U/L (38-126); Aspartate Aminotransferase 23 IU/L (14-36); Bilirubin Total 0.5 mg/dL (0.2-1.3); Blood Urea Nitrogen 12 mg/dL (7-17); Calcium 9.5 mg/dL (8.4-10.2); Carbon Dioxide 22 mmol/L (22-32); Chloride 102 mmol/L (98-107); Estimated Glomerular Filt Rate > 60 mL/min (>60); Globulin 2.6 g/dL (1.7-4.1); Glucose 109 mg/dL (80-110); HEMOLYSIS 16 (0-50); Potassium 4.7 mmol/L (3.4-5.1); Sodium 132 mmol/L (137-145); Total Protein 6.8 g/dL (6.3-8.2)
[2023-11-03 13:45] LABS: Hemoglobin A1C% w Est Avg Glu 5.3 % (4.0-6.0)
== END ==
PROVIDERS: PCP Family Medicine; Referring Provider Family Medicine; Visit Provider Family Medicine
DX: I10 Essential (primary) hypertension (principal); E66.01 Morbid (severe) obesity due to excess calories; Z68.41 Body mass index [BMI] 40.0-44.9, adult
CPT/HCPCS: 36415; 80053; 83036

== ENCOUNTER → 2024-02-06 14:39 | Outpatient (CLI) | payer BC, SELFPAY ==
--- NOTE | 2024-02-06 14:40 | DI.RAD.S_ITS ---
PROCEDURE: XR CHEST 2V INDICATIONS: cough TECHNIQUE: 2 views of the chest were acquired. COMPARISON: [facility], CR, XR CHEST 1V, 06/14/2023, 8:15. FINDINGS: Heart, mediastinum and pulmonary vascular: Heart is normal in size and configuration. Mediastinum is unremarkable. Pulmonary vascular is normal. Lungs: Clear Pleural spaces: Normal-no effusions or pneumothorax. Bones and soft tissues: Normal IMPRESSION: Normal chest. Dictated by: Julián John M.D. on 02/07/2024 at 8:59 Approved by: Julián John M.D. on 02/07/2024 at 9:00
== END ==
PROVIDERS: PCP Family Medicine; Referring Provider Family Medicine; Visit Provider Family Medicine
DX: R05.2 Subacute cough (principal)
CPT/HCPCS: 71046

== ENCOUNTER → 2024-05-03 08:17 | Outpatient (CLI) | payer BC, SELFPAY | PROVIDERS: PCP Family Medicine; Visit Provider Registered Nurse | DX: R30.0 Dysuria (principal) | CPT/HCPCS: 87086 ==

== ENCOUNTER → 2024-06-25 08:20 | Outpatient (CLI) | payer BC, SELFPAY ==
[2024-06-25 09:01] LABS: Add Manual Diff / Slide Review NO; Basophils Absolute Auto 100 /uL (0-100); Basophils Percent Auto 1.2 % (0-2); Eosinophils Absolute Auto 100 /uL (0-450); Eosinophils Percent Auto 0.8 % (2-4); Hemoglobin 14.4 g/dL (12.0-16.0); Lymphocytes Absolute Auto 2900 /uL (1100-4500); Lymphocytes Percent Auto 27.6 % (25-40); Mean Corpuscular HGB Conc 34.3 % (30-36); Mean Corpuscular Volume 93.3 fL (80-100); Monocytes Absolute Auto 800 /uL (0-900); Neutrophils Absolute Auto 6500 /uL (1500-7000); Neutrophils Percent Auto 62.4 % (50-75); Platelet Count 301 X10^3/uL (150-400); Red Cell Distribution Width 13.6 % (11.6-14.8); White Blood Cell Count 10.3 X10^3/uL (4.5-11.0)
[2024-06-25 09:42] LABS: Alanine Aminotransferase 23 IU/L (<35); Albumin 4.3 g/dL (3.5-5.0); Albumin Globulin Ratio 1.7 (1.0-2.8); Alkaline Phosphatase 137 U/L (38-126); Aspartate Aminotransferase 23 IU/L (14-36); Bilirubin Total 0.4 mg/dL (0.2-1.3); Blood Urea Nitrogen 24 mg/dL (7-17); Calcium 9.5 mg/dL (8.4-10.2); Carbon Dioxide 25 mmol/L (22-32); Chloride 101 mmol/L (98-107); Cholesterol 206 mg/dL (140-199); Estimated Glomerular Filt Rate > 60 mL/min (>60); Globulin 2.5 g/dL (1.7-4.1); Glucose 92 mg/dL (80-110); HDL Cholesterol 98 mg/dL (40-60); HEMOLYSIS < 15 (0-50); LDL Cholesterol Calculated 92 mg/dL (<100); Potassium 3.8 mmol/L (3.4-5.1); Sodium 137 mmol/L (137-145); Total Protein 6.8 g/dL (6.3-8.2); Triglycerides 81 mg/dL (35-150)
[2024-06-25 10:10] LABS: TSH w/ Reflex to FT4 2.96 uIU/mL (0.47-4.68)
[2024-06-26 06:36] LABS: CA 15-3 20.2 U/mL (0.0-25.0); Cancer Antigen 27.29 26.8 U/mL (0.0-38.6)
== END ==
PROVIDERS: PCP Family Medicine; Referring Provider Family Medicine; Visit Provider Family Medicine
DX: I10 Essential (primary) hypertension (principal); C50.919 Malignant neoplasm of unspecified site of unspecified female breast; Z15.01 Genetic susceptibility to malignant neoplasm of breast; Z15.09 Genetic susceptibility to other malignant neoplasm; Z17.32 Human epidermal growth factor receptor 2 negative status
CPT/HCPCS: 36415; 80053; 80061; 83036; 84443; 85025; 86300

== ENCOUNTER → 2024-08-13 09:40 | Outpatient (CLI) | payer BC, SELFPAY ==
[2024-08-13 12:15] LABS: Vitamin B12 834 pg/mL (239-931)
== END ==
LOC: LAB 09:41
PROVIDERS: PCP Family Medicine; Referring Provider Family Medicine; Visit Provider Family Medicine
DX: Z13.21 Encounter for screening for nutritional disorder (principal)
CPT/HCPCS: 36415; 82607

== ENCOUNTER 2024-08-13 15:11 | Emergency (ER) | payer BC, SELFPAY ==
[2024-08-13] VITALS (7 sets, daily range): BP systolic 167–195; BP diastolic 84–93; PULSE 87–101; RESP 16–20; TEMP 36.6; O2SAT 92–97; BMI 40.8
--- NOTE | 2024-08-13 15:29 | EKG_ITS ---
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
--- NOTE | 2024-08-13 16:42 | ED.GENADULT ---
HPI - General Adult General Chief complaint: Hypertension Stated complaint: sent by CAROLEE Oliveira HA Time Seen by Provider: 08/13/24 16:40 Source: patient, RN notes reviewed and old records reviewed Mode of arrival: Ambulatory Limitations: no limitations History of Present Illness HPI narrative: This is a 64-year-old female history of hypertension, anxiety/depression, trigeminal neuralgia, chronic back pain, prior history of breast cancer with bilateral mastectomy, NURYS who presents with complaint of headache that is started yesterday. Patient states she did start prednisone yesterday for chronic cough. She has been following with ENT and found it very helpful last time it was prescribed they started what sounds like 40 mg dose yesterday. Patient states since last night she was has a headache she states it is not the worst headache of her life describes as fairly gradual onset. Has a little bit of photophobia but states that is not very atypical. States has not had a migraine in a long time. She denies any numbness tingling, new neurologic changes. Denies any fevers. Denies any other infectious symptoms. She was had some mild nausea but no vomiting. Denies any other GI or urinary symptoms. Denies any chest pain, no shortness of breath. No swelling in extremities. She had Advil last night which was not very helpful. Has not take anything for pain today. Noted blood pressure was high at home and reached out to primary care who encouraged her to come to the ED. patient states home medications are losartan, Wellbutrin, oxcarbazepine, venlafaxine, omeprazole and Celebrex. Patient states she has not allergy to sulfa and chlorthalidone. No tobacco, occasional alcohol, no recreational drugs. Patient's primary care is Dr. Blackwell. Related Data Home Medications Medication Instructions Recorded Confirmed Respironics Dreamstation CPAP #1 ea 10/24/18 07/31/24 fluticasone propionate 50 1 spray intranasal DAILY PRN 01/14/20 07/31/24 mcg/actuation nasal Allergies spray,suspension (Flonase Allergy Relief) Previous Rx's Medication Instructions Recorded acyclovir 400 mg tablet See Rx Instructions .Route 06/05/22 .COMPLEX #30 tabs bupropion HCl 150 mg 24 hr tablet, 150 mg PO QAM #90 tabs 06/19/24 extended release (Wellbutrin XL) celecoxib 200 mg capsule (Celebrex) 200 mg PO DAILY #90 caps 06/19/24 omeprazole 20 mg capsule,delayed 20 mg PO BID #180 caps 06/19/24 release oxcarbazepine 300 mg tablet 450 mg (1.5 x 300 mg) PO BID #270 06/19/24 tabs venlafaxine 75 mg capsule,extended 225 mg (3 x 75 mg) PO DAILY #270 06/19/24 release 24 hr caps tirzepatide 2.5 mg/0.5 mL 2.5 mg (0.5 mL) SUBCUT QWEEK #2 mL 07/03/24 subcutaneous pen injector (Mounjaro) budesonide-formoterol HFA 160 1 puff inhalation DAILY #10.2 grams 07/31/24 mcg-4.5 mcg/actuation aerosol inhaler losartan 100 mg tablet 100 mg PO DAILY #90 tabs 07/31/24 tirzepatide 5 mg/0.5 mL 5 mg (0.5 mL) SUBCUT QWEEK #2 mL 08/01/24 subcutaneous pen injector (Mounjaro) prednisone 20 mg tablet 40 mg (2 x 20 mg) PO DAILY 5 days 08/11/24 #10 tabs Allergies Allergy/AdvReac Type Severity Reaction Status Date / Time Sulfa (Sulfonamide Allergy Verified 07/31/24 07:53 Antibiotics) chlorthalidone AdvReac Mild bloating,, Verified 07/31/24 07:53 [CHLORTHALIDONE] urinary symptoms Review of Systems Review of Systems ROS Unobtainable: All systems reviewed & are unremarkable except as noted in HPI and below Patient History Medical History Trigeminal neuralgia Hot flashes due to menopause (05/22/16) HTN (hypertension) Sinus congestion Allergies Sacral dysfunction Herniated nucleus pulposus, L5-S1, left Facet arthropathy, lumbar Morbid obesity with BMI of 40.0-44.9, adult Low back pain Obstructive sleep apnea of adult Hayfever Depression Migraines Chronic headaches Chicken pox (~1965) Recurrent sinusitis BRCA gene mutation positive in female (2009) GERD (gastroesophageal reflux disease) Gastric ulcer (2009) Colitis (2010) Breast cancer (2009) Surgical History Hx of cervical discectomy Anesthesia History of back surgery (07/2009) Status post cholecystectomy (2015) History of total mastectomy (07/2011) History of total mastectomy (12/2010) Status post hysterectomy (12/2002) Status post tubal ligation (1980) Family History Child Age: 45 Bipolar 1 disorder Essential hypertension Child Age: 43 Essential hypertension Father Age: 88 Hypertension Dementia Mother Age: 88 Hypertension Grandfather No problems noted. Grandmother No problems noted. Sister Breast cancer Sister No problems noted. Sister No problems noted. Social History marital status: household members: spouse lives independently: Yes occupational status: employed Smoking Status: Never smoker alcohol intake: current substance use type: does not use Smoking Status: Never smoker alcohol intake frequency: holidays/special occasions only Exam Narrative Exam Narrative: GEN: well nourished, well appearing female, alert and oriented x 3, patient appears to be in mild distress. HEENT: Atraumatic, pupils are equal round reactive to light, extraocular movements are intact, no photophobia on exam, nares are clear, TMs are clear with no fluid, there is no conjunctival pallor. Throat is clear without any exudates, erythema, tonsillar enlargement or uvular deviation, no facial droop HEART: Regular rate and rhythm without murmur, clicks, rubs. LUNGS:Lungs clear to auscultation, no wheezes, rales, crackles, chest moves symmetrically ABD:bowel sounds normal, soft, non-tender, no guarding, rebound, rigidity, no masses noted, no hepatosplenomegaly MSCL: Non-tender, no muscle atrophy, muscles strength 5/5 upper and lower extremities, full range of motion, normal gait NEURO:CN 2-12 intact, sensation normal. SKIN: No rash, erythema or other skin changes Initial Vital Signs Initial Vital Signs: Vital Signs Pulse Rate 100 H 08/13/24 15:21 Blood Pressure 195/93 H 08/13/24 15:21 Pulse Oximetry 96 08/13/24 15:21 Course Orders Ordered: ED Orders 08/13/24 15:29 EKG-12 Lead Routine Discontinued Medications Ketorolac Tromethamine (Ketorolac 30 Mg/Ml Vial) 30 mg IM NOW ONE Stop: 08/13/24 16:53 Last Admin: 08/13/24 16:55 Dose: 30 mg Documented By: RB Metoclopramide HCl (Metoclopramide Hcl 5 Mg Tablet) 10 mg PO NOW ONE Stop: 08/13/24 16:53 Last Admin: 08/13/24 16:58 Dose: 10 mg Documented By: RB Vital Signs Vital signs: Vital Signs - 8 hr 08/13/24 15:21 08/13/24 15:21 08/13/24 15:22 Temperature 98 F Pulse Rate 100 H 101 H Respiratory Rate 20 Blood Pressure 195/93 H 195/93 H Pulse Oximetry 96 97 Oxygen Delivery Method Room Air 08/13/24 15:30 08/13/24 15:31 08/13/24 15:31 Temperature Pulse Rate 97 H 96 H Respiratory Rate Blood Pressure 179/85 H Pulse Oximetry 96 96 Oxygen Delivery Method 08/13/24 16:00 08/13/24 16:00 08/13/24 16:30 Temperature Pulse Rate 92 H 90 Respiratory Rate 16 20 Blood Pressure 167/86 H Pulse Oximetry 92 94 Oxygen Delivery Method 08/13/24 16:30 08/13/24 17:00 08/13/24 17:00 Temperature Pulse Rate 87 Respiratory Rate 20 Blood Pressure 172/91 H 167/84 H Pulse Oximetry 95 Oxygen Delivery Method Medical Decision Making ECG Data Attestation: I personally reviewed and interpreted this ECG as follows: Interpretation: Sinus rhythm rate of 99 WA 138 QRS of 94 QTC of 474. Minimal voltage criteria for LVH. MDM Narrative Medical decision making narrative: 64-year-old female nontoxic, well-appearing with a headache denies any acute neurologic changes, states it is not as intense as her prior migraines states it does feel little bit different than those. Was reportedly quite hypertensive at home with a systolic in the 200 range. She has been hypertensive here but not to the same level. Discussed obtaining head CT and further workup but patient politely defers, did discuss differential including intracranial hemorrhage, infectious, etcetera.. She did start prednisone yesterday although she was had that before likely at higher doses than initiated yesterday. At this time she was feels comfortable with some medication for management of her headache and plan for return precautions. Discharge Plan Departure Patient Disposition: Home Clinical Impression: Headache Activity Restrictions/Additional Instructions: Please return if you have new or worsening symptoms, rapidly worsening headaches, vomiting, any new numbness, tingling or weakness, changes to mentation, sudden changes to vision, difficulty with movement or other new or concerning changes. Prescriptions: No Action acyclovir 400 mg tablet See Rx Instructions .ROUTE .COMPLEX Qty: 30 0RF Dose Instruction: TAKE 1 TABLET BY MOUTH THREE TIMES DAILY FOR 5 DAYS FOR COLD SORE; WHILE AWAKE; GIVE 5 DOSES IN 24 HOURS Rx Instructions: TAKE 1 TABLET BY MOUTH THREE TIMES DAILY FOR 5 DAYS FOR COLD SORE; WHILE AWAKE; GIVE 5 DOSES IN 24 HOURS celecoxib [Celebrex] 200 mg capsule 200 mg PO DAILY Qty: 90 3RF omeprazole 20 mg capsule,delayed release(DR/EC) 20 mg PO BID Qty: 180 3RF oxcarbazepine 300 mg tablet 450 mg PO BID Qty: 270 1RF bupropion HCl [Wellbutrin XL] 150 mg tablet extended release 24 hr 150 mg PO QAM Qty: 90 3RF venlafaxine 75 mg capsule,extended release 24hr 225 mg PO DAILY Qty: 270 3RF Mounjaro 2.5 mg/0.5 mL pen injector 2.5 mg SUBCUT QWEEK Qty: 2 0RF Rx Instructions: for 4 weeks, ok to compound with vit B12 budesonide-formoterol 160-4.5 mcg/actuation HFA aerosol inhaler 1 puff inhalation DAILY Qty: 10.2 3RF losartan 100 mg tablet 100 mg PO DAILY Qty: 90 1RF Mounjaro 5 mg/0.5 mL pen injector 5 mg SUBCUT QWEEK Qty: 2 0RF Rx Instructions: ok to compound prednisone 20 mg tablet 40 mg PO DAILY 5 Days Qty: 10 0RF fluticasone propionate [Flonase Allergy Relief] 50 mcg/actuation spray,suspension 1 spray NASAL DAILY PRN (Reason: Allergies) Rx Instructions: administer into each nostril (DME) Respironics Dreamstation CPAP Qty: 1 Dose Instruction: As directed Patient Comments: Pressure: 10-13 cmH2O DME: [facility] Rx Instructions: As directed Referrals: Roseanne Blackwell MD [Primary Care Provider] - Stand Alone Forms: Patient Portal/API/Survey
[2024-08-13] MEDS: KETOROLAC 30 MG/ML VIAL IM (16:55)
[2024-08-13] MEDS: METOCLOPRAMIDE HCL 5 MG TABLET 10 MG PO (16:58)
== END 2024-08-13 17:05 | disposition home or self-care (01) ==
PROVIDERS: Emergency Provider Emergency Medicine; PCP Family Medicine
DX: R51.9 Headache, unspecified (principal); R05.9 Cough, unspecified
CPT/HCPCS: 36415; 82607; 82962; 93005; 96372; 99283; 99284; J1885

== ENCOUNTER → 2024-10-30 13:06 | Outpatient (CLI) | payer BC, SELFPAY | LOC: RESP 13:07 | PROVIDERS: PCP Family Medicine; Referring Provider Internal Medicine Critical Care Medicine; Visit Provider Internal Medicine Critical Care Medicine | DX: R05.2 Subacute cough (principal) | CPT/HCPCS: 94060; 94726; 94729 ==

== ENCOUNTER → 2024-11-03 09:30 | Outpatient (CLI) | payer BC, SELFPAY ==
--- NOTE | 2024-11-03 09:32 | DI.RAD.S_ITS ---
PROCEDURE: XR CHEST 2V INDICATIONS: Chronic cough TECHNIQUE: 2 views of the chest were acquired. COMPARISON: [facility], CR, XR CHEST 2V, 02/06/2024, 14:47. FINDINGS: Surgical changes and devices: None. Lungs and pleura: Lungs are clear. No pleural effusions or pneumothorax. Mediastinum: Mediastinal contours are normal. Heart size is normal. Bones and chest wall: No suspicious bony abnormalities. Soft tissues appear unremarkable. IMPRESSION: No acute cardiopulmonary abnormality is seen. Dictated by: Iraj Oliveros M.D. on 11/04/2024 at 17:29 Approved by: Iraj Oliveros M.D. on 11/04/2024 at 17:31
== END ==
PROVIDERS: PCP Family Medicine; Referring Provider Family Medicine; Visit Provider Family Medicine
DX: R05.3 Chronic cough (principal)
CPT/HCPCS: 71046

== ENCOUNTER → 2025-01-09 06:58 | Outpatient (CLI) | payer BC, SELFPAY ==
--- NOTE | 2025-01-09 06:59 | DI.ECHO.S_ITS ---
[facility]---------+ [facility] : : [address] : : [place] : : [id number] : : Phone: [phone] Echocardiogram Report + + :Name: HAIDER DILL Study Date: 01/09/2025 Height: 61 in : :Hospital ReadingLocation: Weight: 212 lb : : Gender: Female BSA: 1.9 m2 : :: 1960 Age: 64 yrs BP: 128/80 mmHg: :Reason For Study: Shortness of breath : :Ordering Physician: CARMELLA, : :NORAH Bowen Performed By: Ankit Augustin : :Referring: NORAH WEIR : + + Interpretation Summary Technically difficult study with limited apical windows. The ejection fraction is estimated to be 55-60%. Diastolic function is indeterminate. The right ventricle is normal in size and function. No obvious valvular abnormalities. Pulmonary artery pressures cannot be estimated because of the lack of a measurable TR jet velocity but the IVC suggests a CVP of around 3 mmHg. Procedure: A two-dimensional transthoracic echocardiogram with color flow and Doppler was performed. Technically challenging echo due to location of breast implants, implant artifact noted in the apical windows. Comparison is made with the echocardiogram of 10/19/2016. The patient was in normal sinus rhythm during the exam. Left Ventricle: The left ventricle is normal in size and wall thickness. Left ventricular systolic function is normal. The ejection fraction is estimated to be 55-60%. There are no focal wall motion abnormalities. Diastolic function is indeterminate. Right Ventricle: The right ventricle is normal in size and function. Atria: Left atrium appears normal in size. Right atrium appears normal in size. There is no Doppler evidence for an interatrial shunt. Mitral Valve: The mitral valve leaflets appear to open well. There is no mitral valve stenosis. There is trace mitral regurgitation. Aortic Valve: The aortic valve is trileaflet. The aortic valve opens well. There is no aortic valve stenosis. No aortic regurgitation is present. Tricuspid Valve: The tricuspid valve is not well visualized, but is grossly normal. There is trace tricuspid regurgitation. Pulmonary artery pressures cannot be estimated because of the lack of a measurable TR jet velocity but the IVC suggests a CVP of around 3 mmHg. Pulmonic Valve: The pulmonic valve is not well seen, but is grossly normal. There is trace pulmonic regurgitation. Great Vessels: The aortic root is normal size. The ascending aorta is normal in size. The aortic arch could not be visualized. The pulmonary is not well visualized. The IVC is of normal diameter and collapses greater than 50% with a sniff. This suggests a low right atrial pressure of 3 mm Hg. Pericardium/ Pleura There is no pericardial effusion. Breast implant artifact noted in apical windows. MMode/2D Measurements & Calculations LVIDd: 4.5 cm LVOT diam: 2.0 cm LVIDs: 2.6 cm Ao root diam: 2.7 cm FS: 43.0 % asc Aorta Diam: 2.7 cm IVSd: 0.89 cm LVPWd: 0.91 cm LV nice. diameter/BSA (cm/m^2): 2.3 LV sys. diameter/BSA (cm/m^2): 1.3 LA A4 area: 15.2 cm2 IVC diam: 1.3 cm LA length (vol): 5.0 cm RVD1 (basal): 2.8 cm RVD2 (mid): 2.6 cm TAPSE: 2.2 cm Doppler Measurements & Calculations Ao V2 max: 123.9 cm/sec LVOT Max Arjun: 89.0 cm/sec Ao V2 mean: 82.2 cm/sec LV V1 max P.2 mmHg Ao max P.1 mmHg LV V1 VTI: 14.9 cm Ao mean P.2 mmHg ELLI(I,D): 2.0 cm2 Ao V2 VTI: 22.8 cm ELLI(V,D): 2.2 cm2 sev ratio: 0.66 ELLI indexed to BSA (cm^2/m^2): 1.0 MV E max arjun: 110.1 cm/sec TR max arjun: 234.1 cm/sec MV A max arjun: 84.8 cm/sec TR max P.9 mmHg MV E/A: 1.3 PA V2 max: 105.5 cm/sec Med Peak E' Arjun: 7.1 cm/sec PA V2 mean: 70.9 cm/sec E/E' med: 15.4 PA mean P.3 mmHg Lat Peak E' Arjun: 7.6 cm/sec PA pr(Accel): 39.2 mmHg E/E' lat: 14.4 E/e' average: 14.9 MV dec time: 0.11 sec SV(LVOT): 45.4 ml Reading Physician:01:25 PM
== END ==
LOC: ECHO 06:59
PROVIDERS: PCP Family Medicine; Referring Provider Family Medicine; Visit Provider Family Medicine
DX: R06.02 Shortness of breath (principal); R05.3 Chronic cough
CPT/HCPCS: 93306

== ENCOUNTER → 2025-01-13 14:56 | Outpatient (CLI) | payer BC, SELFPAY | PROVIDERS: PCP Family Medicine; Visit Provider Family Medicine | DX: N39.0 Urinary tract infection, site not specified (principal) | CPT/HCPCS: 87086 ==